=== PATIENT | female | born 1960 | race Caucasian/White ===

== ENCOUNTER 2019-01-31 00:50 | Inpatient (IN) ==
--- OUTSIDE RECORDS SUMMARY | 2019-01-31 00:52 | External Medical Summary | Continuity of Care Document ---
:1960 Author Name Vance Power, Provider Address Unavailable Unavailable , Care Team Providers Name Role Phone Chase [email or web address] PCP, UNKNOWN Unavailable Unavailable Unavailable Unavailable Unavailable Problems Rosacea (695.3) (L71.9) Edema (782.3) (R60.9) Obesity (278.00) (E66.9) Allergies and Adverse Reactions No Known Drug Allergies (Allergy) Medications Potassium Chloride Consuelo ER 10 MEQ Oral T ablet Extended Release; Take one tablet daily when taking daily Lasix HORTENCIA Malcolm Start: 30-Jan-2014 Quantity: 30 Refills: 5 Furosemide 40 MG Oral Tablet; TAKE 1 TABLET DAILY D IRECTED. HORTENCIA Malcolm Start: 30-Jan-2014 Quantity: 30 Refills: 5 Minocycline HCl - 50 MG Oral Capsule; TAKE 1 CAPSULE E VERY 12 HOURS DAILY. HORTENCIA Malcolm Start: 30-Jan-2014 Quantity: 60 Refills: 0 Furosemide 40 MG Oral Tablet; TAKE 1 TABLET EVERY DAY FOR SWELLING Tono Randolph Start: 28-Sep-2012 Quantity: 90 Refills: 0 Procedures Procedures not documented Immunizations Immunizations not documented Social History - Smoking Status Never smoker Plan of Treatment Planned Observations Planned Goals not documented Results No Known Results Results not documented
[2019-01-31] MEDS ORDERED: LORazepam 1 MG TAB PO STA ×2 (01:11→01:22)
[2019-01-31 01:32] LABS: Appearance Urine Clear (Clear); Bilirubin Urine Negative (Negative); Blood Urine Negative (Negative); Color Urine Yellow; Glucose Urine UA Negative (Negative); Ketones Urine Negative (Negative); Leukocyte Esterase Urine Negative (Negative); Nitrite Urine Negative (Negative); Protein Urine Negative (Negative); Urobilinogen Urine Negative (Negative); pH Urine 6.5 (4.5-7.5)
[2019-01-31 01:37] LABS: Basophils # (auto) 0.05 K/uL (0-0.2); Basophils % (auto) 0.9 %; Eosinophils # (auto) 0.13 K/uL (0-0.5); Eosinophils % (auto) 2.5 %; Hematocrit (blood only) 39.7 % (37-47); Hemoglobin 13.9 g/dL (12.0-16.0); Immature Granulocytes # (auto) 0.03 K/uL (0.00-0.02); Immature Granulocytes % (auto) 0.6 %; Lymphocytes # (auto) 1.32 K/uL (1.2-3.4); Mean Corpuscular Volume 91.7 fL (80-100); Mean Platelet Volume 9.8 fL (7.4-10.4); Monocytes # (auto) 0.53 K/uL (0.11-0.59); Monocytes % (auto) 10.1 %; Neutrophils # (auto) 3.21 K/uL (1.4-6.5); Neutrophils % (auto) 60.9 %; Platelet Count 294 K/uL (130-400); RDW Coefficient of Variation 13.8 % (11.5-14.5); RDW Standard Deviation 46.5 fL (36.4-46.3); Red Blood Count 4.33 M/uL (4.2-5.4); White Blood Count 5.27 K/uL (4.8-10.8)
[2019-01-31 02:00] LABS: Alanine Aminotransferase 27 U/L (12-78); Albumin Level 3.6 gm/dl (3.4-5.0); Aspartate Aminotransferase 32 U/L (15-37); BUN Creatinine Ratio 6.7 (10-20); Blood Urea Nitrogen 4 mg/dl (7-18); Calcium 8.4 mg/dl (8.5-10.1); Carbon Dioxide 32 mmol/L (21-32); Chloride 94 mmol/L (98-107); Creatinine Clr Calc Pharmacy 111.6 ml/min; Est GFR (African American) 114.8; Est GFR (Non-African American) 99.1; Glucose 99 mg/dl (70-99); Potassium 2.8 mmol/L (3.5-5.1); Sodium 133 mmol/L (136-145)
[2019-01-31 02:02] LABS: Amphetamines+Metham, Urine Neg (Neg); Barbiturates, Urine Neg (Neg); Benzodiazepine, Urine Neg (Neg); Cocaine, Urine Neg (Neg); MDMA (Ecstacy), Urine Neg (Neg); Methadone, Urine Neg (Neg); Opiate, Urine Neg (Neg); Phencyclidine, Urine Neg (Neg)
[2019-01-31 02:06] LABS: Acetaminophen < 2 ug/ml (10-30); Salicylate < 1.7 mg/dl (2.8-20)
[2019-01-31 02:11] LABS: Albumin Globulin Ratio 0.9 (0.9-2); Alkaline Phosphatase 153 U/L (45-117); Bilirubin,Total 0.3 mg/dl (0.2-1); Creatine Kinase 199 U/L (26-192); Creatine Kinase MB 2.1 ng/ml (0.5-3.6); Globulin 4.2 gm/dl (2.5-4.0); Total Protein 7.8 gm/dl (6.4-8.2); Troponin I < 0.015 ng/ml (0-0.045)
[2019-01-31] MEDS ORDERED: POTASSIUM CHLORIDE 20 MEQ TABCR PO STA (02:13)
--- NOTE | 2019-01-31 03:15 | Emergency Department Note ---
Entered by Alex Marley acting as a scribe for ED Provider Note Name: Alize Randall Age: 59 Arrives Via: Triage Informant: Self CC: Worsening anxiety and depression HPI: 59 female arrives for evaluation of worsening anxiety and depression beginning a few days ago. The patient states it feels like someone is constantly chasing her. She reports her heart has been racing and will not stop for the pa st few weeks. The patient notes she feels like she need to cut herself, and she has cut her right wrists and feet. She states she thought about killing herself and using a knife to do it. The patient reports she takes Prozac and an anxiety pill that she cannot remember when needed. She notes she used to take her medication daily until she was weaned off them. The patient states she now only takes her medication if she feels like she is going on a slip. She reports she has not overdosed on them and she is actually out of her anxiety medication. The patient notes she drinks a few cans a day of [employer] Lemonade daily, and she does not have seizures or shakes when she does not drink them. She states she was never diagnosed with alcoholism, but she does drink the alcohol to take the pain away. The patient reports a history of skin issues and a family history of depression. She notes no one in her family ever killed themselves that she knows of. The patient states she has not been eating much. She reports she was admitted to the hospital a few times for mental health treatment, and the last time she was admitted was in [place] in 2004. The patient denies recent falls, abdominal pain, back pain, recent injury, a history of DM/HTN/HLD, alcohol use, and drug use. ROS: See above HPI for pertinent positives & negatives. A total of 10 systems reviewed and were otherwise negative. Past Medical History: Skin trouble, anxiety, depression Past Surgical History: Family History: Depression Social History: Lives with . Alcohol use. Home Medications: Prozac Allergies NKDA Physical: Vitals: BP 184/127, Pulse 123, Resp 20, Temp 97.7 F, O2 Sat 96 Exam: GENERAL: Patient is sad and anxious appearing and in mild distress. EYES: No scleral icterus, unremarkable pupils. ENT: Mucous membranes moist, no nasal congestion. NECK: No masses appreciated, no meningismus, trachea is midline. RESPIRATORY: No dyspnea. Clear to auscultation and equal bilaterally. No wheeze, no rhonchi. CARDIOVASCULAR: Mildly tachycardic rate and regular rhythm. No murmurs, rubs, gallops appreciated. GASTROINTESTINAL: Abdomen soft, non-tender, no peritonitis. Bowel sounds positive. No masses appreciated. BACK: No midline tenderness, no CVA tenderness EXTREMITIES: Normal motion all extremities, no cyanosis, no edema. NEUROLOGIC: Alert and oriented, no acute motor or sensory deficits, no focal weakness, cranial nerves grossly intact. SKIN: No rash, no jaundice, no diaphoresis. Healing abrasion over the right volar wrist. PSYCHIATRIC: Sad. Depressed. Admits to suicidal ideations without a specific plan. ED Course: Prior Medical Record, Triage/Nursing Notes, Medications, Allergies reviewed by Me Vital Signs: reviewed and remarkable for HTN Labs: Reviewed and remarkable for HypoKalemia Interventions: Potassium 40meq PO Imaging: None EKG: Per My Interpretation: indication - palpitations: NSR 91 bpm without ectopy nor ischemia. No recent for comparison. QTC 479 Consults: [address] [place] [address] Accepts to their facility Reassessments/Times: 0103: The patient was evaluated in room A05. A complete history and physical exam was performed. 0217: The patient is feeling much better. She is agreeable to a mental health evaluation from the psychiatric comp field case manager. Her did go home, but he signed a 302 petition prior to leaving. 0407: The patient was accepted to [address] [place] [address]. Blood pressure: Elevated - [place] to be Situation Disposition: Hospitalization On [address] [place] [address] Differentials: Mood Disorder, Overdose, Infectious, Electrolyte Abnormality, Cardiac, Hepatic, Endocrine, Toxicologic, Neurologic, amongst other pathologies Entertained. Medical Decision Making: Pleasant 59 yr old female with long standing depression worsening recently now with suicidal thoughts. Exam negative, work up with low K otherwise looks OK. Repleted potassium. Is not intoxicated nor under influence and is currently medically clear. Modest HTN though likely situation and shouldn't effect admission to psych facility. Willing for 201 admission to [address] [place] [address]. Impression: Depression Suicidal ideation Jovan Roth MD The scribe's documentation has been prepared under my direction and personally reviewed by me in its entirety. I confirm that the note above accurately reflects all work, treatment, procedures, and medical decision making performed by me. Impression & Plan Depression, Suicidal ideation, Hypokalemia Past Med/Surg History Medical History Depression (Chronic) Pneumonia (Resolved) Sinusitis (Resolved) Anxiety (Chronic) Surgical History Hx of section (Resolved) Family History Other Depression Social History Preferred Language: Uzbek Feels Safe at Home: Yes Smoking Status: Never smoker Tobacco Type: cigarettes Results & Data Vital Signs Vital Signs - 24 hr 01/31/19 00:54 01/31/19 02:23 01/31/19 04:00 Temperature 36.5 C Temperature Source Oral Sepsis Recent Fever Within 48 Hours No Sepsis Action Taken by Nursing No Action Required Pulse Rate 123 H Pulse Rate [Finger] 100 H 99 H Pulse Rhythm Regular Pulse Rhythm [Finger] Regular Pulse Strength Normal Pulse Strength [Finger] Normal Respiratory Rate 20 16 18 Respiratory Effort / Characteristics Non-Labored Spontaneous Non-Labored Spontaneous Non-Labored Respiratory Depth Normal Normal Normal Respiratory Pattern Regular Regular Blood Pressure 184/127 H Blood Pressure [Left Arm] 188/85 H 167/88 H Blood Pressure Mean 146 Blood Pressure Mean [Left Arm] 119 114 Blood Pressure Position Sitting Blood Pressure Position [Left Arm] Lying Pulse Oximetry 96 98 99 Oxygen Delivery Method Room Air Room Air Room Air Home Medications Current Medication List: was personally reviewed by me Laboratory Data Attestation: I reviewed the patient's lab results. Result diagrams: 01/31/19 01:27 01/31/19 01:27 Lab Results 01/31/19 01/31/19 01/31/19 Range/Units 01:00 01:00 01:27 WBC 5.27 (4.8-10.8) K/uL RBC 4.33 (4.2-5.4) M/uL Hgb 13.9 (12.0-16.0) g/dL Hct 39.7 (37-47) % MCV 91.7 (80-100) fL MCH 32.1 (25-34) pg MCHC 35.0 (32-36) g/dL RDW Std Deviation 46.5 H (36.4-46.3) fL RDW Coeff of Fouzia 13.8 (11.5-14.5) % Plt Count 294 (130-400) K/uL MPV 9.8 (7.4-10.4) fL Immature Gran % (Auto) 0.6 % Neut % (Auto) 60.9 % Lymph % (Auto) 25.0 % Child[place] % (Auto) 10.1 % Eos % (Auto) 2.5 % Baso % (Auto) 0.9 % Immature Gran # (Auto) 0.03 H (0.00-0.02) K/uL Neut # (Auto) 3.21 (1.4-6.5) K/uL Lymph # (Auto) 1.32 (1.2-3.4) K/uL Childress # (Auto) 0.53 (0.11-0.59) K/uL Eos # (Auto) 0.13 (0-0.5) K/uL Baso # (Auto) 0.05 (0-0.2) K/uL Sodium (136-145) mmol/L Potassium (3.5-5.1) mmol/L Chloride (98-107) mmol/L Carbon Dioxide (21-32) mmol/L Anion Gap (3-11) BUN (7-18) mg/dl Creatinine (0.6-1.2) mg/dl Est Cr Clr Drug Dosing ml/min Est GFR ( Amer) Est GFR (Non-Af Amer) BUN/Creatinine Ratio (10-20) Glucose (70-99) mg/dl Calcium (8.5-10.1) mg/dl Total Bilirubin (0.2-1) mg/dl AST (15-37) U/L ALT (12-78) U/L Alkaline Phosphatase (45-117) U/L Total Creatine Kinase (26-192) U/L CK-MB (CK-2) (0.5-3.6) ng/ml CK/CKMB % Calc (0-3.0) Troponin I (0-0.045) ng/ml Total Protein (6.4-8.2) gm/dl Albumin (3.4-5.0) gm/dl Globulin (2.5-4.0) gm/dl Albumin/Globulin Ratio (0.9-2) TSH (0.300-4.500) uIu/ml Urine Color Yellow Urine Appearance Clear (Clear) Urine pH 6.5 (4.5-7.5) Ur Specific [place] 1.010 (1.000-1.030) Urine Protein Negative (Negative) Urine Glucose (UA) Negative (Negative) Urine Ketones Negative (Negative) Urine Blood Negative (Negative) Urine Nitrite Negative (Negative) Urine Bilirubin Negative (Negative) Urine Urobilinogen Negative (Negative) Ur Leukocyte Esterase Negative (Negative) Salicylates (2.8-20) mg/dl Urine Opiates Screen Neg (Neg) Ur Methadone, Qual Neg (Neg) Acetaminophen (10-30) ug/ml Urine Barbiturates Neg (Neg) Ur Phencyclidine (PCP) Neg (Neg) U Amphetamin/Meth Scrn Neg (Neg) MDMA (Ecstasy) Screen Neg (Neg) U Benzodiazepines Scrn Neg (Neg) Ur Cocaine Metabolite Neg (Neg) U Marijuana (THC) Screen Neg (Neg) Ethyl Alcohol mg/dL (0-3) mg/dl 01/31/19 01/31/19 01/31/19 Range/Units 01:27 01:27 01:27 WBC (4.8-10.8) K/uL RBC (4.2-5.4) M/uL Hgb (12.0-16.0) g/dL Hct (37-47) % MCV (80-100) fL MCH (25-34) pg MCHC (32-36) g/dL RDW Std Deviation (36.4-46.3) fL RDW Coeff of Fouzia (11.5-14.5) % Plt Count (130-400) K/uL MPV (7.4-10.4) fL Immature Gran % (Auto) % Neut % (Auto) % Lymph % (Auto) % Childress % (Auto) % Eos % (Auto) % Baso % (Auto) % Immature Gran # (Auto) (0.00-0.02) K/uL Neut # (Auto) (1.4-6.5) K/uL Lymph # (Auto) (1.2-3.4) K/uL Child[place] # (Auto) (0.11-0.59) K/uL Eos # (Auto) (0-0.5) K/uL Baso # (Auto) (0-0.2) K/uL Sodium 133 L (136-145) mmol/L Potassium 2.8 L (3.5-5.1) mmol/L Chloride 94 L (98-107) mmol/L Carbon Dioxide 32 (21-32) mmol/L Anion Gap 7.0 (3-11) BUN 4 L (7-18) mg/dl Creatinine 0.64 (0.6-1.2) mg/dl Est Cr Clr Drug Dosing 111.6 ml/min Est GFR ( Amer) 114.8 Est GFR (Non-Af Amer) 99.1 BUN/Creatinine Ratio 6.7 L (10-20) Glucose 99 (70-99) mg/dl Calcium 8.4 L (8.5-10.1) mg/dl Total Bilirubin 0.3 (0.2-1) mg/dl AST 32 (15-37) U/L ALT 27 (12-78) U/L Alkaline Phosphatase 153 H (45-117) U/L Total Creatine Kinase 199 H (26-192) U/L CK-MB (CK-2) 2.1 (0.5-3.6) ng/ml CK/CKMB % Calc 1.1 (0-3.0) Troponin I < 0.015 (0-0.045) ng/ml Total Protein 7.8 (6.4-8.2) gm/dl Albumin 3.6 (3.4-5.0) gm/dl Globulin 4.2 H (2.5-4.0) gm/dl Albumin/Globulin Ratio 0.9 (0.9-2) TSH 2.310 (0.300-4.500) uIu/ml Urine Color Urine Appearance (Clear) Urine pH (4.5-7.5) Ur Specific [place] (1.000-1.030) Urine Protein (Negative) Urine Glucose (UA) (Negative) Urine Ketones (Negative) Urine Blood (Negative) Urine Nitrite (Negative) Urine Bilirubin (Negative) Urine Urobilinogen (Negative) Ur Leukocyte Esterase (Negative) Salicylates < 1.7 L (2.8-20) mg/dl Urine Opiates Screen (Neg) Ur Methadone, Qual (Neg) Acetaminophen < 2 L (10-30) ug/ml Urine Barbiturates (Neg) Ur Phencyclidine (PCP) (Neg) U Amphetamin/Meth Scrn (Neg) MDMA (Ecstasy) Screen (Neg) U Benzodiazepines Scrn (Neg) Ur Cocaine Metabolite (Neg) U Marijuana (THC) Screen (Neg) Ethyl Alcohol mg/dL < 3.0 (0-3) mg/dl Administered Medications Discontinued Medications Lorazepam (Ativan) 1 mg PO NOW STA Stop: 01/31/19 01:12 Last Admin: 01/31/19 01:24 Dose: 1 mg Documented by: [id number] Lorazepam (Ativan) 1 mg PO NOW STA Stop: 01/31/19 01:23 Last Admin: 01/31/19 01:24 Dose: Not Given Documented by: [id number] Potassium Chloride (Klor-Con M20) 40 meq PO NOW STA Stop: 01/31/19 02:14 Last Admin: 01/31/19 02:24 Dose: 40 meq Documented by: [id number] Prescription Drug Monitoring [place] Drug Monitoring Program reviewed and no issues identified Prescription Drug Findings: Pt was given a Xanax 0.5mg prescription from June 2018. Blood Pressure Blood Pressure Findings: Elevated blood pressure Blood Pressure Disposition: further management by hospitalist Discharge Plan Visit Data Chief Complaint: Mental Health Evaluation Stated Complaint: MENTAL HEALTH EVALUATION ED Provider: Jovan Roth Discharge Problem: Depression, Suicidal ideation, Hypokalemia Patient Disposition: Transfer Behavioral Health Fac Forms Stand Alone Forms: My [facility] Prescriptions Prescriptions: No Action fluoxetine [Prozac] 20 mg Capsule 20 mg PO DAILY RF: 0 Referrals Referrals: Cahty Mlacolm [Primary Care Provider] - Discharge Problem: Depression Qualifiers: Depression Type: major depressive disorder Major depression recurrence: recurrent Active/Remission status: currently active Major depression episode severity: severe Psychotic features: without psychotic features Qualified Code(s): F33.2 - Major depressive disorder, recurrent severe without psychotic features The eb's documentation has been prepared under my direction and personally reviewed by me in its entirety. I confirm that the note above accurately reflects all work, treatment, procedures, and medical decision making performed by me.
[2019-01-31] MEDS ORDERED: ALUMINUM/MAGNESIUM SUSP 30 ML UDC PO PRN (04:11)
[2019-01-31] MEDS ORDERED: SODIUM CHLORIDE 0.65% NA SOLN 45 ML (OCEAN) PRN (04:11)
[2019-01-31] MEDS ORDERED: ACETAMINOPHEN 325 MG TAB PO PRN (04:11)
[2019-01-31] MEDS ORDERED: BISMUTH SUBSALICYLATE PER ML OMNICELL CHARGE PO PRN (04:11)
[2019-01-31] MEDS ORDERED: MAGNESIUM HYDROXIDE SUSP 30 ML UDC PO PRN (04:11)
[2019-01-31 04:50] VITALS: O2SAT 96
--- NOTE | 2019-01-31 06:30 | XRay Report ---
XR chest 1V portable CLINICAL HISTORY: Persistent palpitations COMPARISON STUDY: 10/06/2014 FINDINGS: The cardiac and mediastinal contours are normal. There is no evidence of focal pulmonary co nsolidation. There is no evidence of failure. No pleural effusions are visualized.[ IMPRESSION: No active disease in the chest. Electronically signed by: Vadim Granados M.D. 01/31/2019 6:29 AM
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
[2019-01-31] MEDS ORDERED: QUETIAPINE FUMARATE 25 MG TABLET PO SCH (22:00)
[2019-02-01 08:35] LABS: BUN Creatinine Ratio 16.2 (10-20); Calcium 8.4 mg/dl (8.5-10.1); Creatinine Clr Calc Pharmacy 120.2 ml/min; Est GFR (African American) 117.3; Est GFR (Non-African American) 101.2; Potassium 3.4 mmol/L (3.5-5.1)
[2019-02-01] MEDS ORDERED: ESCITALOPRAM OXALATE 10 MG TAB PO SCH (09:00)
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
[2019-02-01] MEDS ORDERED: BENZOCAINE 20% (ORAJEL) 11.9 GM TUBE MT PRN (12:14)
[2019-02-01] MEDS: BACITRACIN OINT 15 GM TUBE EXT SCH ×2 (13:21→21:07)
[2019-02-01] MEDS: QUETIAPINE FUMARATE 100 MG TABLET PO SCH (21:06)
[2019-02-02] MEDS: BACITRACIN OINT 15 GM TUBE EXT SCH ×3 (07:45→20:58)
[2019-02-02] MEDS: ESCITALOPRAM OXALATE 10 MG TAB PO SCH (07:45)
[2019-02-02] MEDS: QUETIAPINE FUMARATE 25 MG TABLET PO PRN (10:16)
--- NOTE | 2019-02-02 13:02 | Psychiatric Progress Note ---
Date of Service February 02, 2019 Impression / Recommendations Impression Pt reports mood is unchaged from admission. She continues to appear flat with episodes of spontaneous tearfulness on the unit. Pt has been refusing visitors with unclear reasoning. She has tolerated medication adjustments, prn quetiapine at 25mg q4h was ordered due to reports of anxiety/agitation. Pt was encouraged to utilize these doses as needed, can determine if further titration of quetiapine would be indicated based off of prn use. She has no outpatient mental health treatment, as she has no insurance. She has been started on escitalopram and quetiapine, and is using hydroxyzine frequently for anxiety. She also has multiple medical issues, including electrolyte disarray on admission with significant hypokalemia, elevated creatinine kinase, hyperlipidemia, and dermatological issues (facial excoriation). She is at imminent risk of harm to herself/suicide, and inpatient treatment is medically indicated at this time. (1) Suicidal ideation: 01/31 - Continue voluntary hospitalization - Q 15 min checks for safety - Attend and participate in groups and therapy, work on safety plan - Family meeting 02/02 - Reports ongoing SI (2) Depression: 01/31 - Depression with psychosis. - Does not want to return to fluoxetine as thinks it caused weight gain. Reviewed med options on the $4/$[address] [facility]: reviewed risks, benefits, and side effects of escitalopram and quetiapine, including weight gain and need to monitor labs. Patient agreed, will start meds once QTc normalizes. EKG ordered. - Once QTc normalizes, can start escitalopram 10 mg daily and quetiapine 50 mg at bedtime, to target mood, anxiety, and psychosis. - Check fasting lipid profile and glucose for baseline on the atypical antipsychotic. - Recommend follow-up with a psychiatrist and therapist. Patient is resistant to this, but will continue to discuss and explore barriers. She does not have insurance, which will limit aftercare options. 02/01 -repeat EKG was normal sinus rhythm with QTC 457. Escitalopram 10 mg daily and quetiapine 50 mg at bedtime started yesterday; will increase escitalopram to 20 mg daily tomorrow and quetiapine to 100 mg at bedtime tonight to target mood, anxiety, and psychotic symptoms. -Fasting labs checked this morning for baseline on an atypical antipsychotic: Glucose 86, triglycerides elevated 187, cholesterol elevated 221, remainder of lipid panel within normal limits. Explore options for mental health care in the community, primary barrier is lack of insurance/finances. Refer for case management services to assist her in obtaining outpatient treatment. 02/02 - PRN doses of quetiapine provided due to reported anxiety, 25mg q4h prn - Continue current medication regimen otherwise - Continue to encourage patient to involve family in aftercare and safety planning - Reports interest in exploring inpatient D&A rehab for her alcohol use, per family encouragement (3) Anxiety: 01/31 -work on behavioral techniques for managing anxiety. Attend and participate in groups. Start medications as above. 02/01 -increase escitalopram as above. -continue hydroxyzine but encourage patient to utilize behavioral techniques prior to medications, she is having daytime sedation from PRN's. 02/02 - prn quetiapine ordered for anxiety/agitation - 25mg q4h prn (4) Hypokalemia: 01/31 -repleted in the ER, encourage good p.o. intake, and recheck BMP tomorrow. 02/01 -continue to encourage good p.o. intake. Potassium today 3.4, and sodium and chloride have normalized. CK was elevated on admission 199, and was rechecked today -decreased to 52. (5) Excoriation of face: 02/01 -patient reports a history of rosacea, with inflamed areas on her lower face which are now excoriated. She had been putting [id number] acne medication on them. Recommend gentle cleanser and antibacterial ointment to prevent infection and promote healing. She should follow-up with her PCP and possibly dermatology. (6) Tooth decay: 02/01 -patient reports a tooth crumbled, and she missed her dentist appointment to have it fixed due to hospitalization. Continue Orajel 20% as needed for tooth pain, and reschedule with dentist. Inventory Assets Strengths: Supportive family, willing for treatment Needs: Ongoing treatment with medications, therapy Risk Factors Assessment Male: No : Yes Do You Have Access To A Gun?: No Health Problems: Yes Mental Health Diagnoses: Yes Substance Use Disorders: Yes Previous Attempt: Yes Previous Attempt; Highly Lethal: No Family History of Suicide: No Previous Psychiatric Hospitalization: Yes Hopelessness: Yes Smoker: No Protective Factors Assessment : Yes Responsible for Young Children: No Employed: No Supportive Family: Yes Interval History Identifying Information BEAR SANDHU is a 59-year-old F who currently lives in [place] with her , has a history of depression and anxiety, and was admitted on 01/31/19 04:11 on a 201 voluntary commitment for anxiety, depression, paranoia and suicidality. Chief Complaint "Oh, I don't know. I'm here." Review of Systems Notes Constitutional: reports fatigue from poor sleep last evening Cardiovascular: denied Respiratory: denied Gastrointestinal: denied Neurological: denied Psychiatric: denies symptoms other than stated above Total of at least 10 systems reviewed, pertinent positives as above and in HPI. Sleep Information Total Hours of Sleep: 5.75 Sleep Comments: admitted at 0458. Meal Information Percent Meal Consumed - Breakfast: 75 Percent Meal Consumed - Lunch: 75 Percent Meal Consumed - Dinner: 50 Subjective Subjective Patient was seen & assessed and interval progress reviewed with Nursing. Staff report the patient refused visitors last evening, seeming to be somewhat paranoid. It was reported the patient had verbalized some ongoing SI with staff yesterday. Pt was seen today to assess progress since admission. Pt states she is "here." She verbalizes that she remains hopeless and continues to have thou ghts that "life goes on without me. It wouldn't matter if I were gone." Pt continues to struggle with feeling her family does not value her presence. She does admit, however, that she is considering their wishes that she would receive inpatient D&A treatment for her alcohol abuse. Pt states she had some anxiety earlier today, for which she received recently ordered prn quetiapine. Pt states she does not feel comfortable having visitors as "we're not allowed curling irons, I don't have anything to cover up my face. I don't want them seeing me like this." Pt continues to report hopelessness, but denies other needs or concerns today. Physical Exam Psychiatric Orientation: alert, oriented x 3 and cooperative Apperance: appropriately dressed and + disheveled; + did not appear stated age Eye Contact: + fair eye contact Motor Behavior: no abnormal motor movements (observed while laying in bed) Speech: normal rate/rhythm/volume of speech Affect: + flat affect, + constricted affect and mood congruent with affect Mood: + depressed mood and + anxious mood "I'm very flat, very blah." Thought Process: goal directed thought process (moreso today) and + perseveration Thought Content: + delusions and + persecution Suicidal Thoughts: + reports suicidal thoughts Homicidal Thoughts: denies homicidal thoughts Hallucinations: no auditory hallucinations and no visual hallucinations Cognition: recent memory grossly intact, attention grossly intact and language grossly intact Estimated Intelligence: consistent with education level Insight: + impaired insight Judgement: + impaired judgement Vital Signs (Past 24 Hours) Last Vital Signs Temp 36.8 C 02/02/19 06:41 Pulse 99 H 02/02/19 06:42 Resp 18 02/02/19 06:41 BP 148/94 H 02/02/19 06:42 Pulse Ox 96 01/31/19 04:49 Results & Data Current Inpatient Medications Current Inpatient Medications: Current Inpatient Medications Acetaminophen (Tylenol) 650 mg PO Q4H PRN PRN Reason: Headache or Minor Fever Stop: 03/02/19 04:10 Al Hydrox/Mg Hydrox/Simethicone (Maalox) 30 ml PO Q4H PRN PRN Reason: GI Upset Stop: 03/02/19 04:10 Bacitracin (Bacitracin) 1 appln EXT BID HONORIO Stop: 03/03/19 12:14 Last Admin: 02/02/19 07:50 Dose: Not Given Documented by: Benzocaine (Orajel 20%) 1 appln MT BID PRN PRN Reason: tooth pain Stop: 03/03/19 12:13 Bismuth Subsalicylate (Kaopectate) 15 ml PO PRN PRN PRN Reason: Loose Stool Stop: 03/02/19 04:10 Escitalopram Oxalate (Lexapro) 20 mg PO QAM HONORIO Stop: 03/04/19 08:59 Last Admin: 02/02/19 07:45 Dose: 20 mg Documented by: Hydroxyzine HCl (Vistaril) 50 mg PO HSZ PRN PRN Reason: Insomnia Stop: 03/02/19 04:10 Last Admin: 02/01/19 21:06 Dose: 50 mg Documented by: Hydroxyzine HCl (Vistaril) 25 mg PO Q4H PRN PRN Reason: Anxiety Stop: 03/02/19 04:10 Last Admin: 02/01/19 09:06 Dose: 25 mg Documented by: Magnesium Hydroxide (Milk Of Magnesia) 30 ml PO DAILY PRN PRN Reason: Constipation Stop: 03/02/19 04:10 Quetiapine Fumarate (Seroquel) 100 mg PO HS HONORIO Stop: 03/03/19 21:59 Last Admin: 02/01/19 21:06 Dose: 100 mg Documented by: Quetiapine Fumarate (Seroquel) 25 mg PO Q4 PRN PRN Reason: Anxiety Stop: 03/04/19 10:09 Last Admin: 02/02/19 10:16 Dose: 25 mg Documented by: Sodium Chloride ([place] Nasal) 1 - 2 sprays NA PRN PRN PRN Reason: Nasal Dryness/Congestion Stop: 03/02/19 04:10 Post Discharge Appointments Primary Care Physician Name Of Family Doctor: Adrianne Mandel Therapist Name of Therapist: Bonifacio CPT Code CPT Code 78503 (1) Depression Active/Remission status: currently active Depression Type: major depressive disorder Major depression episode severity: severe Major depression recurrence: recurrent Psychotic features: with psychotic features Qualified Code(s): F33.3 - Major depressive disorder, recurrent, severe with psychotic symptoms
[2019-02-02] MEDS: QUETIAPINE FUMARATE 100 MG TABLET PO SCH (20:58)
[2019-02-03] MEDS: BACITRACIN OINT 15 GM TUBE EXT SCH ×2 (09:16→21:00)
[2019-02-03] MEDS: ESCITALOPRAM OXALATE 10 MG TAB PO SCH (09:16)
--- NOTE | 2019-02-03 10:00 | Psychiatric Progress Note ---
Date of Service February 03, 2019 Impression / Recommendations Impression Pt reports some mild improvement in mood last evening. Continues to verbalize a distrust toward her family. Reason for this has changed based on who the patient is conversing with. Pt is observed to be occasionally anxious/paranoid on the unit. Reviewed with patient that prn quetiapine was available throughout the day. Pt requests to be reminded of when doses are available; however, staff states that when it is suggested she is sometimes hesitant to take the medication. Will continue prn doses, and schedule 25mg [id number] - given patient's request for reminder of medication availability. Pt was encouraged to really consider a family meeting with her prior to discharge, as she identifies him as her main outpatient support. She continues to verbalized that she feels her family does not care about her, which is increasing her hopelessness. She is at imminent risk of harm to herself/suicide, and decompensation is highly likely if discharged prematurely. (1) Suicidal ideation: 01/31 - Continue voluntary hospitalization - Q 15 min checks for safety - Attend and participate in groups and therapy, work on safety plan - Family meeting 02/02 - Reports ongoing SI (2) Depression: 01/31 - Depression with psychosis. - Does not want to return to fluoxetine as thinks it caused weight gain. Reviewed med options on the $4/$9 list at [facility]: reviewed risks, benefits, and side effects of escitalopram and quetiapine, including weight gain and need to monitor labs. Patient agreed, will start meds once QTc normalizes. EKG ordered. - Once QTc normalizes, can start escitalopram 10 mg daily and quetiapine 50 mg at bedtime, to target mood, anxiety, and psychosis. - Check fasting lipid profile and glucose for baseline on the atypical antipsychotic. - Recommend follow-up with a psychiatrist and therapist. Patient is resistant to this, but will continue to discuss and explore barriers. She does not have insurance, which will limit aftercare options. 02/01 -repeat EKG was normal sinus rhythm with QTC 457. Escitalopram 10 mg daily and quetiapine 50 mg at bedtime started yesterday; will increase escitalopram to 20 mg daily tomorrow and quetiapine to 100 mg at bedtime tonight to target mood, anxiety, and psychotic symptoms. -Fasting labs checked this morning for baseline on an atypical antipsychotic: Glucose 86, triglycerides elevated 187, cholesterol elevated 221, remainder of lipid panel within normal limits. Explore options for mental health care in the community, primary barrier is lack of insurance/finances. Refer for case management services to assist her in obtaining outpatient treatment. 02/02 - PRN doses of quetiapine provided due to reported anxiety, 25mg q4h prn - Continue current medication regimen otherwise - Continue to encourage patient to involve family in aftercare and safety planning - Reports interest in exploring inpatient D&A rehab for her alcohol use, per family encouragement 02/03 - Continue quetiapine 100mg qHS and escitalopram 20mg qAM - Added order for quetiapine 25mg scheduled [id number] - Continue to encourage patient to schedule family meeting with her (3) Anxiety: 01/31 -work on behavioral techniques for managing anxiety. Attend and participate in groups. Start medications as above. 02/01 -increase escitalopram as above. -continue hydroxyzine but encourage patient to utilize behavioral techniques prior to medications, she is having daytime sedation from PRN's. 02/02 - prn quetiapine ordered for anxiety/agitation - 25mg q4h prn 02/03 - Scheduled additional dosing of quetiapine 25mg [id number] (4) Hypokalemia: 01/31 -repleted in the ER, encourage good p.o. intake, and recheck BMP tomorrow. 02/01 -continue to encourage good p.o. intake. Potassium today 3.4, and sodium and chloride have normalized. CK was elevated on admission 199, and was rechecked today -decreased to 52. (5) Excoriation of face: 02/01 -patient reports a history of rosacea, with inflamed areas on her lower face which are now excoriated. She had been putting [id number] acne medication on them. Recommend gentle cleanser and antibacterial ointment to prevent infection and promote healing. She should follow-up with her PCP and po ssibly dermatology. (6) Tooth decay: 02/01 -patient reports a tooth crumbled, and she missed her dentist appointment to have it fixed due to hospitalization. Continue Orajel 20% as needed for tooth pain, and reschedule with dentist. Inventory Assets Strengths: Supportive family, willing for treatment Needs: Ongoing treatment with medications, therapy Risk Factors Assessment Male: No : Yes Do You Have Access To A Gun?: No Health Problems: Yes Mental Health Diagnoses: Yes Substance Use Disorders: Yes Previous Attempt: Yes Previous Attempt; Highly Lethal: No Family History of Suicide: No Previous Psychiatric Hospitalization: Yes Hopelessness: Yes Smoker: No Protective Factors Assessment : Yes Responsible for Young Children: No Employed: No Supportive Family: Yes Interval History Identifying Information BEAR SANDHU is a 59-year-old F who currently lives in [place] with her , has a history of depression and anxiety, and was admitted on 01/31/19 04:11 on a 201 voluntary commitment for anxiety, depression, paranoia and suicidality. Chief Complaint "Yeah, I didn't want anyone to visit last night. My called though, I guess he's coming later today." Review of Systems Notes Constitutional: denied Cardiovascular: denied Respiratory: denied Gastrointestinal: denied Neurological: denied Psychiatric: denies symptoms other than stated above Total of at least 10 systems reviewed, pertinent positives as above and in HPI. Sleep Information Total Hours of Sleep: 6.25 Sleep Comments: admitted at 0458. Meal Information Percent Meal Consumed - Breakfast: 75 Percent Meal Consumed - Lunch: 75 Percent Meal Consumed - Dinner: 100 Subjective Subjective Patient was seen & assessed and interval progress reviewed with Treatment Team. Staff reports the patient has been refusing visitors with varying reasons as to why. At times she demonstrates episodes of severe anxiety on the unit. Pt was seen today to assess progress since admission. Pt states she noticed some mild improvement in her mood last evening. Today she states her mood is "pretty good." She states her is planning to visit this evening, and this provider encouraged patient to consider scheduling a family meeting with him to discuss concerns and safety planning prior to discharge. Pt states she has limited trust toward her family at this time, as "I just felt everyone was talking behind my back, like they were against me." Pt was asked if she had a different level of trust for her and stated - "in a way I guess, I can't run to him with all my anxiety though. I have to be able to do things on my own." Pt was cooperative with further exploring this idea, as it was explained that at times we need to lean on supports in order to manage various burdens we are facing. Reviewed with patient her own words, that she believes her misses her and wants to be there for her. She remained mildly dismissive during the discussion, seems somewhat skeptical about the advice given. Pt admits to ongoing concerns related to returning home with her family. Pt denies other needs or concerns today. Physical Exam Psychiatric Orientation: alert, oriented x 3 and cooperative Apperance: appropriately dressed (in dress shirt and jeans) and + disheveled (hair somewhat unkempt) Eye Contact: good eye contact Motor Behavior: steady gait and station and no abnormal motor movements Speech: normal rate/rhythm/volume of speech Affect: + flat affect Mood: + depressed mood (but reports "last evening my mood was pretty good.") Thought Process: goal directed thought process and clear/coherent thought process Thought Content: reality based without delusions at time of assessment; though patient verbalizes suggestive comments to nursing at times regarding likely delusional thought content Suicidal Thoughts: denies suicidal thoughts (ongoing hopelessness) Homicidal Thoughts: denies homicidal thoughts Hallucinations: no auditory hallucinations and no visual hallucinations Cognition: attention grossly intact and language grossly intact Estimated Intelligence: consistent with education level Insight: + impaired insight Judgement: + impaired judgement Vital Signs (Past 24 Hours) Last Vital Signs Temp 36.6 C 02/03/19 06:59 Pulse 86 02/03/19 07:00 Resp 16 02/03/19 06:59 BP 152/97 H 02/03/19 07:00 Pulse Ox 96 01/31/19 04:49 Results & Data Current Inpatient Medications Current Inpatient Medications: Current Inpatient Medications Acetaminophen (Tylenol) 650 mg PO Q4H PRN PRN Reason: Headache or Minor Fever Stop: 03/02/19 04:10 Al Hydrox/Mg Hydrox/Simethicone (Maalox) 30 ml PO Q4H PRN PRN Reason: GI Upset Stop: 03/02/19 04:10 Bacitracin (Bacitracin) 1 appln EXT BID [facility]ON[facility]IO Stop: 03/03/19 12:14 Last Admin: 02/03/19 09:16 Dose: 1 appln Documented by: Benzocaine (Orajel 20%) 1 appln MT BID PRN PRN Reason: tooth pain Stop: 03/03/19 12:13 Bismuth Subsalicylate (Kaopectate) 15 ml PO PRN PRN PRN Reason: Loose Stool Stop: 03/02/19 04:10 Escitalopram Oxalate (Lexapro) 20 mg PO QAM [facility] Stop: 03/04/19 08:59 Last Admin: 02/03/19 09:16 Dose: 20 mg Documented by: Hydroxyzine HCl (Vistaril) 50 mg PO HSZ PRN PRN Reason: Insomnia Stop: 03/02/19 04:10 Last Admin: 02/01/19 21:06 Dose: 50 mg Documented by: Hydroxyzine HCl (Vistaril) 25 mg PO Q4H PRN PRN Reason: Anxiety Stop: 03/02/19 04:10 Last Admin: 02/01/19 09:06 Dose: 25 mg Documented by: Magnesium Hydroxide (Milk Of Magnesia) 30 ml PO DAILY PRN PRN Reason: Constipation Stop: 03/02/19 04:10 Quetiapine Fumarate (Seroquel) 100 mg PO HS [facility] Stop: 03/03/19 21:59 Last Admin: 02/02/19 20:58 Dose: 100 mg Documented by: Quetiapine Fumarate (Seroquel) 25 mg PO Q4 PRN PRN Reason: Anxiety Stop: 03/04/19 10:09 Last Admin: 02/02/19 10:16 Dose: 25 mg Documented by: Sodium Chloride ([place] Nasal) 1 - 2 sprays NA PRN PRN PRN Reason: Nasal Dryness/Congestion Stop: 03/02/19 04:10 Post Discharge Appointments Primary Care Physician Name Of Family Doctor: Adrianne Mandel Therapist Name of Therapist: Bonifacio CPT Code CPT Code 42100 (1) Depression Active/Remission status: currently active Depression Type: major depressive disorder Major depression episode severity: severe Major depression recurrence: recurrent Psychotic features: with psychotic features Qualified Code(s): F33.3 - Major depressive disorder, recurrent, severe with psychotic symptoms
[2019-02-03] MEDS: QUETIAPINE FUMARATE 25 MG TABLET PO PRN ×3 (11:20→22:03)
[2019-02-03] MEDS: QUETIAPINE FUMARATE 25 MG TABLET PO SCH (12:54)
[2019-02-03] MEDS ORDERED: QUETIAPINE FUMARATE 25 MG TABLET PO SCH (14:00)
[2019-02-03] MEDS: QUETIAPINE FUMARATE 100 MG TABLET PO SCH (21:00)
[2019-02-04] MEDS: QUETIAPINE FUMARATE 25 MG TABLET PO SCH ×2 (09:21→13:21)
[2019-02-04] MEDS: ESCITALOPRAM OXALATE 10 MG TAB PO SCH (09:21)
[2019-02-04] MEDS: BACITRACIN OINT 15 GM TUBE EXT SCH ×2 (09:22→21:09)
[2019-02-04] MEDS ORDERED: DOCUSATE SODIUM 100 MG CAP PO ONE (11:53)
--- NOTE | 2019-02-04 12:04 | Psychiatric Progress Note ---
Date of Service February 04, 2019 Impression / Recommendations Impression Anxiety showing interval improvement on increased seroquel. Notably less paranoid and more hopeful today. She remain at imminent risk of harm to herself/suicide, and decompensation is highly likely if discharged prematurely. (1) Suicidal ideation: 01/31 - Continue voluntary hospitalization - Q 15 min checks for safety - Attend and participate in groups and therapy, work on safety plan - Family meeting 02/02 - Reports ongoing SI 02/04 - denies active SI this AM (2) Depression: 01/31 - Depression with psychosis. - Does not want to return to fluoxetine as thinks it caused weight gain. Reviewed med options on the $4/$9 list at [facility]: reviewed risks, benefits, and side effects of escitalopram and quetiapine, including weight gain and need to monitor labs. Patient agreed, will start meds once QTc normalizes. EKG ordered. - Once QTc normalizes, can start escitalopram 10 mg daily and quetiapine 50 mg at bedtime, to target mood, anxiety, and psychosis. - Check fasting lipid profile and glucose for baseline on the atypical antipsychotic. - Recommend follow-up with a psychiatrist and therapist. Patient is resistant to this, but will continue to discuss and explore barriers. She does not have insurance, which will limit aftercare options. 02/01 -repeat EKG was normal sinus rhythm with QTC 457. Escitalopram 10 mg daily and quetiapine 50 mg at bedtime started yesterday; will increase escitalopram to 20 mg daily tomorrow and quetiapine to 100 mg at bedtime tonight to target mood, anxiety, and psychotic symptoms. -Fasting labs checked this morning for baseline on an atypical antipsychotic: Glucose 86, triglycerides elevated 187, cholesterol elevated 221, remainder of lipid panel within normal limits. Explore options for mental health care in the community, primary barrier is lack of insurance/finances. Refer for case management services to assist her in obtaining outpatient treatment. 02/02 - PRN doses of quetiapine provided due to reported anxiety, 25mg q4h prn - Continue current medication regimen otherwise - Continue to encourage patient to involve family in aftercare and safety planning - Reports interest in exploring inpatient D&A rehab for her alcohol use, per family encouragement 02/03 - Continue quetiapine 100mg qHS and escitalopram 20mg qAM - Added order for quetiapine 25mg scheduled [id number] - Continue to encourage patient to schedule family meeting with her 02/04 - tolerating increased seroquel w/ improving anxiety and reduced paranoia - FM tomorrow (3) Anxiety: 01/31 -work on behavioral techniques for managing anxiety. Attend and participate in groups. Start medications as above. 02/01 -increase escitalopram as above. -continue hydroxyzine but encourage patient to utilize behavioral techniques prior to medications, she is having daytime sedation from PRN's. 02/02 - prn quetiapine ordered for anxiety/agitation - 25mg q4h prn 02/03 - Scheduled additional dosing of quetiapine 25mg [id number] 02/04 - notable improvement today (4) Hypokalemia: 01/31 -repleted in the ER, encourage good p.o. intake, and recheck BMP tomorrow. 02/01 -continue to encourage good p.o. intake. Potassium today 3.4, and sodium and chloride have normalized. CK was elevated on admission 199, and was re checked today -decreased to 52. (5) Excoriation of face: 02/01 -patient reports a history of rosacea, with inflamed areas on her lower face which are now excoriated. She had been putting [id number] acne medication on them. Recommend gentle cleanser and antibacterial ointment to prevent infection and promote healing. She should follow-up with her PCP and possibly dermatology. (6) Tooth decay: 02/01 -patient reports a tooth crumbled, and she missed her dentist appointment to have it fixed due to hospitalization. Continue Orajel 20% as needed for tooth pain, and reschedule with dentist. (7) Constipation: 02/04 - c/o mild constipation. uses ex-lax at home. will start docusate 100mg bid. encouraged good hydration Inventory Assets Strengths: Supportive family, willing for treatment Needs: Ongoing treatment with medications, therapy Risk Factors Assessment Male: No : Yes Do You Have Access To A Gun?: No Health Problems: Yes Mental Health Diagnoses: Yes Substance Use Disorders: Yes Previous Attempt: Yes Previous Attempt; Highly Lethal: No Family History of Suicide: No Previous Psychiatric Hospitalization: Yes Hopelessness: Yes Smoker: No Protective Factors Assessment : Yes Responsible for Young Children: No Employed: No Supportive Family: Yes Interval History Identifying Information BEAR SANDHU is a 59-year-old F who currently lives in [place] with her , has a history of depression and anxiety, and was admitted on 01/31/19 04:11 on a 201 voluntary commitment for anxiety, depression, paranoia and suicidality. Chief Complaint "I am starting to feel just a little more hopeful, like maybe I will be able to get home safely". Review of Systems Notes mild constipation. denies CP Sleep Information Total Hours of Sleep: 6 Sleep Comments: admitted at 0458. Meal Information Percent Meal Consumed - Breakfast: 100 Percent Meal Consumed - Lunch: 60 Percent Meal Consumed - Dinner: 100 Subjective Subjective Patient was seen & assessed and interval progress reviewed with Treatment Team. Patient was admitted with recurrent depression and paranoia. Progress has been slow. Scheduled for family meeting tomorrow. Started on daytime Seroquel in addition to bedtime dose yesterday for anxiety. No acute events overnight. This morning the patient describes subjectively some interval improvement. She tells me that she feels less paranoid. "It is like I am not reacting to every word and every sound." She denies problematic sedation. Denies dizziness. When queried about suicidal ideation today she states "I am not really feeling anything like that right now." Physical Exam Psychiatric Orientation: cooperative; not guarded Apperance: + disheveled Eye Contact: good eye contact Motor Behavior: no abnormal motor movements Speech: normal rate/rhythm/volume of speech Affect: + blunted affect Mood: no anxious mood ("flat") Thought Process: goal directed thought process and thought association intact Thought Content: not paranoid Suicidal Thoughts: denies suicidal thoughts Homicidal Thoughts: denies homicidal thoughts Estimated Intelligence: average estimated intelligence Insight: + impaired insight Judgement: + impaired judgement Vital Signs (Past 24 Hours) Last Vital Signs Temp 36.6 C 02/04/19 06:53 Pulse 88 02/04/19 06:54 Resp 18 02/04/19 06:53 BP 143/97 H 02/04/19 06:54 Pulse Ox 96 01/31/19 04:49 Results & Data Current Inpatient Medications Current Inpatient Medications: Current Inpatient Medications Acetaminophen (Tylenol) 650 mg PO Q4H PRN PRN Reason: Headache or Minor Fever Stop: 03/02/19 04:10 Al Hydrox/Mg Hydrox/Simethicone (Maalox) 30 ml PO Q4H PRN PRN Reason: GI Upset Stop: 03/02/19 04:10 Bacitracin (Bacitracin) 1 appln EXT BID [facility] Stop: 03/03/19 12:14 Last Admin: 02/04/19 09:22 Dose: 1 appln Documented by: Benzocaine (Orajel 20%) 1 appln MT BID PRN PRN Reason: tooth pain Stop: 03/03/19 12:13 Bismuth Subsalicylate (Kaopectate) 15 ml PO PRN PRN PRN Reason: Loose Stool Stop: 03/02/19 04:10 Docusate Sodium (Colace) 100 mg PO NOW ONE Stop: 02/04/19 11:54 Escitalopram Oxalate (Lexapro) 20 mg PO QAM [facility] Stop: 03/04/19 08:59 Last Admin: 02/04/19 09:21 Dose: 20 mg Documented by: Hydroxyzine HCl (Vistaril) 50 mg PO HSZ PRN PRN Reason: Insomnia Stop: 03/02/19 04:10 Last Admin: 02/01/19 21:06 Dose: 50 mg Documented by: Hydroxyzine HCl (Vistaril) 25 mg PO Q4H PRN PRN Reason: Anxiety Stop: 03/02/19 04:10 Last Admin: 02/01/19 09:06 Dose: 25 mg Documented by: Magnesium Hydroxide (Milk Of Magnesia) 30 ml PO DAILY PRN PRN Reason: Constipation Stop: 03/02/19 04:10 Quetiapine Fumarate (Seroquel) 100 mg PO HS [facility] Stop: 03/03/19 21:59 Last Admin: 02/03/19 21:00 Dose: 100 mg Documented by: Quetiapine Fumarate (Seroquel) 25 mg PO Q4 PRN PRN Reason: Anxiety Stop: 03/04/19 10:09 Last Admin: 02/03/19 22:03 Dose: 25 mg Documented by: Quetiapine Fumarate (Seroquel) 25 mg PO BID@0900,1230 [facility] Stop: 03/05/19 12:29 Last Admin: 02/04/19 09:21 Dose: 25 mg Documented by: Sodium Chloride ([place] Nasal) 1 - 2 sprays NA PRN PRN PRN Reason: Nasal Dryness/Congestion Stop: 03/02/19 04:10 Post Discharge Appointments Primary Care Physician Name Of Family Doctor: Adrianne Mandel Primary Care Time of Appointment with PCP: follow up as needed. Provider Appointment Comment: [address] [place] [address] Psychiatrist Name of Psychiatrist: Declined. Therapist Name of Therapist: Declined Dental Laboratory Manager Name of Dental Laboratory Manager: [employer] [facility] Phone Number for Dental Laboratory Manager: [phone] Case Management Appointment Comment: [address], [place] [address] Contact Information Discharge Discharge [address]: [address] [place], [place] [address] [address] CPT Code CPT Code 75946 (1) Depression Active/Remission status: currently active Depression Type: major depressive disorder Major depression episode severity: severe Major depression recurrence: recurrent Psychotic features: with psychotic features Qualified Code(s): F33.3 - Major depressive disorder, recurrent, severe with psychotic sym ptoms
[2019-02-04] MEDS: QUETIAPINE FUMARATE 25 MG TABLET PO PRN (18:33)
[2019-02-04] MEDS: DOCUSATE SODIUM 100 MG CAP PO SCH (21:08)
[2019-02-04] MEDS: QUETIAPINE FUMARATE 100 MG TABLET PO SCH (21:08)
[2019-02-05] MEDS: DOCUSATE SODIUM 100 MG CAP PO SCH ×2 (08:07→21:19)
[2019-02-05] MEDS: ESCITALOPRAM OXALATE 10 MG TAB PO SCH (08:07)
[2019-02-05] MEDS: BACITRACIN OINT 15 GM TUBE EXT SCH ×2 (08:08→21:19)
[2019-02-05] MEDS: QUETIAPINE FUMARATE 25 MG TABLET PO SCH ×2 (08:08→13:03)
--- NOTE | 2019-02-05 12:02 | Psychiatric Progress Note ---
Date of Service February 05, 2019 Impression / Recommendations Impression Again appearing less anxious and paranoid. Patient has expressed some reluctance for psychiatric follow-up post discharge secondary to financial constraints however was willing for outpatient psychiatric follow-up following interview today. (1) Suicidal ideation: 01/31 - Continue voluntary hospitalization - Q 15 min checks for safety - Attend and participate in groups and therapy, work on safety plan - Family meeting 02/02 - Reports ongoing SI 02/04 - denies active SI this AM 02/05 - not active (2) Depression: 01/31 - Depression with psychosis. - Does not want to return to fluoxetine as thinks it caused weight gain. Reviewed med options on the $4/$9 list at [facility]: reviewed risks, benefits, and side effects of escitalopram and quetiapine, including weight gain and need to monitor labs. Patient agreed, will start meds once QTc normalizes. EKG ordered. - Once QTc normalizes, can start escitalopram 10 mg daily and quetiapine 50 mg at bedtime, to target mood, anxiety, and psychosis. - Check fasting lipid profile and glucose for baseline on the atypical antipsychotic. - Recommend follow-up with a psychiatrist and therapist. Patient is resistant to this, but will continue to discuss and explore barriers. She does not have insurance, which will limit aftercare options. 02/01 -repeat EKG was normal sinus rhythm with QTC 457. Escitalopram 10 mg daily and quetiapine 50 mg at bedtime started yesterday; will increase escitalopram to 20 mg daily tomorrow and quetiapine to 100 mg at bedtime tonight to target mood, anxiety, and psychotic symptoms. -Fasting labs checked this morning for baseline on an atypical antipsychotic: Glucose 86, triglycerides elevated 187, cholesterol elevated 221, remainder of lipid panel within normal limits. Explore options for mental health care in the community, primary barrier is lack of insurance/finances. Refer for case management services to assist her in obtaining outpatient treatment. 02/02 - PRN doses of quetiapine provided due to reported anxiety, 25mg q4h prn - Continue current medication regimen otherwise - Continue to encourage patient to involve family in aftercare and safety planning - Reports interest in exploring inpatient D&A rehab for her alcohol use, per family encouragement 02/03 - Continue quetiapine 100mg qHS and escitalopram 20mg qAM - Added order for quetiapine 25mg scheduled [id number] - Continue to encourage patient to schedule family meeting with her 02/04 - tolerating increased seroquel w/ improving anxiety and reduced paranoia - FM tomorrow 02/05 - mood continues to improve - paranoia resolving (not evident this AM) (3) Anxiety: 01/31 -work on behavioral techniques for managing anxiety. Attend and participate in groups. Start medications as above. 02/01 -increase escitalopram as above. -continue hydroxyzine but encourage patient to utilize behavioral techniques prior to medications, she is having daytime sedation from PRN's. 02/02 - prn quetiapine ordered for anxiety/agitation - 25mg q4h prn 02/03 - Scheduled additional dosing of quetiapine 25mg [id number] 02/04 - notable improvement today (4) Hypokalemia: 01/31 -repleted in the ER, encourage good p.o. intake, and recheck BMP tomorrow. 02/01 -continue to encourage good p.o. intake. Potassium today 3.4, and sodium and chloride have normalized. CK was elevated on admission 199, and was rechecked today -decreased to 52. (5) Excoriation of face: 02/01 -patient reports a history of rosacea, with inflamed areas on her lower face which are now excoriated. She had been putting [id number] acne medication on them. Recommend gentle cleanser and antibacterial ointment to prevent infection and promote healing. She should follow-up with her PCP and possibly dermatology. (6) Tooth decay: 02/01 -patient reports a tooth crumbled, and she missed her dentist appointment to have it fixed due to hospitalization. Continue Orajel 20% as needed for tooth pain, and reschedule with dentist. (7) Constipation: 02/04 - c/o mild constipation. uses ex-lax at home. will start docusate 100mg bid. encouraged good hydration Inventory Assets Strengths: Supportive family, willing for treatment Needs: Ongoing treatment with medications, therapy Risk Factors Assessment Male: No : Yes Do You Have Access To A Gun?: No Health Problems: Yes Mental Health Diagnoses: Yes Substance Use Disorders: Yes Previous Attempt: Yes Previous Attempt; Highly Lethal: No Family History of Suicide: No Previous Psychiatric Hospitalization: Yes Hopelessness: Yes Smoker: No Protective Factors Assessment : Yes Responsible for Young Children: No Employed: No Supportive Family: Yes Interval History Identifying Information BEAR SANDHU is a 59-year-old F who currently lives in [place] with her , has a history of depression and anxiety, and was admitted on 01/31/19 04:11 on a 201 voluntary commitment for anxiety, depression, paranoia and suicidality. Chief Complaint "I feel a lot better". Review of Systems Notes Denies dizziness Sleep Information Total Hours of Sleep: 7.75 Sleep Comments: admitted at 0458. Meal Information Percent Meal Consumed - Breakfast: 50 Percent Meal Consumed - Lunch: 95 Percent Meal Consumed - Dinner: 90 Subjective Subjective Patient was seen & assessed and interval progress reviewed with Treatment Team. Per nursing, patient looking better and brighter on the unit. Scheduled for family meeting today with her . Showered. Compliant with medication. On interview she describes improvement in mood. "I was totally out of it. I feel a lot better now." She denies residual paranoia. Acknowledges some mild anxiety but finding the Seroquel very helpful for that and well-tolerated. She denies excessive sedation. Denies suicidal ideation. Physical Exam Psychiatric Orientation: alert and cooperative Apperance: appropriately dressed and appropriately groomed Eye Contact: good eye contact Motor Behavior: no abnormal motor movements; no psychomotor agitation Speech: normal rate/rhythm/volume of speech Calm Pretty good Thought Process: goal directed thought process Thought Content: not paranoid Suicidal Thoughts: denies suicidal thoughts Homicidal Thoughts: denies homicidal thoughts Hallucinations: no auditory hallucinations and no visual hallucinations Insight: + limited insight Judgement: + limited judgement Vital Signs (Past 24 Hours) Last Vital Signs Temp 36.8 C 02/05/19 06:00 Pulse 82 02/05/19 06:31 Resp 18 02/05/19 06:00 BP 141/86 H 02/05/19 06:31 Pulse Ox 96 01/31/19 04:49 Results & Data Current Inpatient Medications Current Inpatient Medications: Current Inpatient Medications Acetaminophen (Tylenol) 650 mg PO Q4H PRN PRN Reason: Headache or Minor Fever Stop: 03/02/19 04:10 Al Hydrox/Mg Hydrox/Simethicone (Maalox) 30 ml PO Q4H PRN PRN Reason: GI Upset Stop: 03/02/19 04:10 Bacitracin (Bacitracin) 1 appln EXT BID HONORIO Stop: 03/03/19 12:14 Last Admin: 02/05/19 08:08 Dose: 1 appln Documented by: Benzocaine (Orajel 20%) 1 appln MT BID PRN PRN Reason: tooth pain Stop: 03/03/19 12:13 Bismuth Subsalicylate (Kaopectate) 15 ml PO PRN PRN PRN Reason: Loose Stool Stop: 03/02/19 04:10 Docusate Sodium (Colace) 100 mg PO BID [facility] Stop: 03/06/19 20:59 Last Admin: 02/05/19 08:07 Dose: 100 mg Documented by: Escitalopram Oxalate (Lexapro) 20 mg PO QAM [facility] Stop: 03/04/19 08:59 Last Admin: 02/05/19 08:07 Dose: 20 mg Documented by: Hydroxyzine HCl (Vistaril) 50 mg PO HSZ PRN PRN Reason: Insomnia Stop: 03/02/19 04:10 Last Admin: 02/01/19 21:06 Dose: 50 mg Documented by: Hydroxyzine HCl (Vistaril) 25 mg PO Q4H PRN PRN Reason: Anxiety Stop: 03/02/19 04:10 Last Admin: 02/01/19 09:06 Dose: 25 mg Documented by: Magnesium Hydroxide (Milk Of Magnesia) 30 ml PO DAILY PRN PRN Reason: Constipation Stop: 03/02/19 04:10 Quetiapine Fumarate (Seroquel) 100 mg PO HS [facility] Stop: 03/03/19 21:59 Last Admin: 02/04/19 21:08 Dose: 100 mg Documented by: Quetiapine Fumarate (Seroquel) 25 mg PO Q4 PRN PRN Reason: Anxiety Stop: 03/04/19 10:09 Last Admin: 02/04/19 18:33 Dose: 25 mg Documented by: Quetiapine Fumarate (Seroquel) 25 mg PO BID@0900,1230 [facility] Stop: 03/05/19 12:29 Last Admin: 02/05/19 08:08 Dose: 25 mg Documented by: Sodium Chloride (Hardeman Nasal) 1 - 2 sprays NA PRN PRN PRN Reason: Nasal Dryness/Congestion Stop: 03/02/19 04:10 Post Discharge Appointments Primary Care Physician Name Of Family Doctor: [facility] Time of Appointment with PCP: follow up as needed. Provider Appointment Comment: [address] [place] [address] Psychiatrist Name of Psychiatrist: Declined. Therapist Name of Therapist: Declined Senior Data Mining Analyst Name of Senior Data Mining Analyst: [employer] Phone Number for Senior Data Mining Analyst: [phone] Case Management Appointment Comment: [address], [place] [address] Contact Information Discharge Discharge [address] [address] [place], [place] [address] [address] CPT Code CPT Code 98261 (1) Depression Active/Remission status: currently active Depression Type: major depressive disorder Major depression episode severity: severe Major depression recurrence: recurrent Psychotic features: with psychotic features Qualified Code(s): F33.3 - Major depressive disorder, recurrent, severe with psychotic symptoms
[2019-02-05] MEDS: QUETIAPINE FUMARATE 100 MG TABLET PO SCH (21:19)
[2019-02-06 06:39] VITALS: BP 136/87; TEMP 97.9
[2019-02-06] MEDS: ESCITALOPRAM OXALATE 10 MG TAB PO SCH (08:34)
[2019-02-06] MEDS: QUETIAPINE FUMARATE 25 MG TABLET PO SCH ×2 (08:35→13:07)
[2019-02-06] MEDS: BACITRACIN OINT 15 GM TUBE EXT SCH (08:35)
[2019-02-06] MEDS: DOCUSATE SODIUM 100 MG CAP PO SCH (08:35)
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
[2019-02-06 10:09] VITALS: PULSE 88
== END 2019-02-06 13:30 | disposition home or self-care (01) | DRG 885 ==
LOC: ED 00:50 → 3S 04:11

== ENCOUNTER 2019-08-02 08:12 | Inpatient (IN) ==
[2019-08-02] MEDS ORDERED: SODIUM CHLORIDE 0.9% 1000ML 1,000 ML IV SCH (08:30)
[2019-08-02 08:40] LABS: Appearance Urine Clear (Clear); Bilirubin Urine Negative (Negative); Blood Urine Negative (Negative); Color Urine Yellow; Glucose Urine UA Negative (Negative); Ketones Urine Trace (Negative); Leukocyte Esterase Urine Negative (Negative); Nitrite Urine Negative (Negative); Protein Urine Negative (Negative); Specific Gravity Urine 1.014 (1.000-1.030); Urobilinogen Urine Negative (Negative)
[2019-08-02 09:00] LABS: Basophils # (auto) 0.02 K/uL (0-0.2); Basophils % (auto) 0.3 %; Eosinophils # (auto) 0.01 K/uL (0-0.5); Eosinophils % (auto) 0.2 %; Hemoglobin 12.9 g/dL (12.0-16.0); Immature Granulocytes # (auto) 0.03 K/uL (0.00-0.02); Immature Granulocytes % (auto) 0.5 %; Lymphocytes # (auto) 0.45 K/uL (1.2-3.4); Lymphocytes % (auto) 7.6 %; Mean Corpuscular Hemoglobin 30.3 pg (25-34); Mean Corpuscular Hgb Conc 33.1 g/dL (32-36); Mean Corpuscular Volume 91.5 fL (80-100); Mean Platelet Volume 9.8 fL (7.4-10.4); Monocytes # (auto) 0.39 K/uL (0.11-0.59); Monocytes % (auto) 6.6 %; Neutrophils # (auto) 5.03 K/uL (1.4-6.5); Neutrophils % (auto) 84.8 %; Platelet Count 151 K/uL (130-400); RDW Coefficient of Variation 17.1 % (11.5-14.5); RDW Standard Deviation 54.2 fL (36.4-46.3); Red Blood Count 4.26 M/uL (4.2-5.4); White Blood Count 5.93 K/uL (4.8-10.8)
[2019-08-02] MEDS ORDERED: MULTI-VITAMIN INFUSION 10 ML, THIAMINE HCL 100 MG, FOLIC ACID 1 MG in SODIUM CHLORIDE 0... IV ONE (09:01)
[2019-08-02] MEDS ORDERED: MAGNESIUM SULFATE / D5W 1 GM/100 ML BAG IV ONE ×2 (09:01→09:31)
[2019-08-02 09:03] LABS: Base Excess ABG -3.6 mEq/L (-9-1.8); HCO3 ABG 21 mmol/L (19-24); Oxygen Saturation ABG 91.4 % (90-95); PCO2 ABG 34 mmHg (35-46); PO2 ABG 64 mm/Hg (80-95)
[2019-08-02 09:04] LABS: Allen Test Pos (Pos)
[2019-08-02 09:13] LABS: Prothrombin Time 10.5 Seconds (9.0-12.0)
[2019-08-02 09:18] LABS: Alanine Aminotransferase 101 U/L (12-78); Albumin Level 3.6 gm/dl (3.4-5.0); Aspartate Aminotransferase 145 U/L (15-37); BUN Creatinine Ratio 8.1 (10-20); Blood Urea Nitrogen 6 mg/dl (7-18); Calcium 8.7 mg/dl (8.5-10.1); Carbon Dioxide 21 mmol/L (21-32); Chloride 90 mmol/L (98-107); Est GFR (African American) 112.5; Est GFR (Non-African American) 97.1; Glucose 153 mg/dl (70-99); Lipase 642 U/L (73-393); Magnesium 1.4 mg/dl (1.8-2.4); Sodium 126 mmol/L (136-145)
[2019-08-02 09:23] LABS: Acetaminophen < 2 ug/ml (10-30); Salicylate < 1.7 mg/dl (2.8-20)
--- NOTE | 2019-08-02 09:31 | Emergency Department Note ---
Entered by Jerry Castellanos acting as a scribe for Muna Guzman DO History of Present Illness General Chief complaint: Overdose (Intentional) Time Seen by Provider: 08/02/19 08:13 Source: patient and EMS History of Present Illness Provider complaint: Overdose Onset (ago): hour(s) (This morning) Location: head Pain Consistency: + other (Episodic) Quality: + other (Medication overdose) Associated symptoms: + confusion and + nausea/vomiting (No vomiting) The patient is a 59 year old female who presents to the Emergency Room via EMS after overdosing on Seroquel this morning. Per the , the patient took about 20 Seroquel and swallowed them using vodka. Police on scene state that there was 4 pills missing from her Seroquel and about 400mL were missing from the handle of vodka. The patient presents to the ED confused and slightly nauseous. The patient has been tachycardic in the 140s and sating in the mid 80s on RA when EMS arrived at her house. EMS note that the patient was agitated and hesitant to come to the ED. Per EMS, the patient also has superficial lacerations on her bilateral wrist and shins. Per the , the patient has a history of depression and anxiety and he notes her depression has gotten worse since their children have grown up and moved out. Home Medications Home Medications Medication Instructions Recorded Confirmed Type escitalopram oxalate 20 mg PO QAM 08/02/19 08/02/19 History quetiapine 25 mg PO BID 08/02/19 08/02/19 History quetiapine 100 mg PO HS 08/02/19 08/02/19 History Allergies Allergy/AdvReac Type Severity Reaction Status Date / Time No Known Allergies Allergy Unverified 01/31/19 01:48 Past Med/Surg History Medical History Anxiety (Chronic) Depression (Chronic) Pneumonia (Resolved) Sinusitis (Resolved) Surgical History Hx of section (Resolved) Family History Other Depression Social History Preferred Language: Mongolian Communication Ability: agitated Teacher Hearing Impaired Required: No Beliefs That Will Affect Care: None Current Living Situation: Spouse Other Information That Helps Us Care for You: No Feels Safe at Home: Yes Safety Concerns: Feels Safe At This Time Smoking Status: Never smoker Tobacco Type: cigarettes ; Do You Dip or Chew Tobacco: No ; Second Hand Exposure: No ; Tobacco Cessation Education Requested b y Patient: No Hx Alcohol Use: Yes Alcohol type: hard liquor Hx Substance Use: No Review of Systems See HPI for pertinent positives & negatives. and A total of 10 systems reviewed and were otherwise negative Physical Exam Vital Signs Vital Signs - 24 hr 08/02/19 08:24 08/02/19 08:29 08/02/19 08:30 Temperature 97.7 F Temperature Source Oral Pulse Rate 137 H Pulse Rate [Apical] Respiratory Rate 20 Blood Pressure 144/86 H Blood Pressure [Left Arm] Blood Pressure Mean 105 Blood Pressure Mean [Left Arm] Pulse Oximetry 93 88 L 95 Oxygen Delivery Method Room Air Room Air Nasal Cannula Oxygen Flow Rate 2 Sepsis Recent Fever Within 48 Hours No Sepsis New/Unexplained Change in Mental Status No Sepsis Action Taken by Nursing No Action Required 08/02/19 09:08 08/02/19 10:20 08/02/19 11:04 Temperature Temperature Source Pulse Rate Pulse Rate [Apical] 118 H 112 H 108 H Respiratory Rate 20 18 14 Blood Pressure Blood Pressure [Left Arm] 119/93 132/75 79/59 L Blood Pressure Mean Blood Pressure Mean [Left Arm] 101 94 65 Pulse Oximetry 92 98 97 Oxygen Delivery Method Nasal Cannula Nasal Cannula Nasal Cannula Oxygen Flow Rate 2 2 2 Sepsis Recent Fever Within 48 Hours Sepsis New/Unexplained Change in Mental Status Sepsis Action Taken by Nursing 08/02/19 11:11 Temperature Temperature Source Pulse Rate Pulse Rate [Apical] 114 H Respiratory Rate 16 Blood Pressure Blood Pressure [Left Arm] 126/74 Blood Pressure Mean Blood Pressure Mean [Left Arm] 91 Pulse Oximetry 96 Oxygen Delivery Method Nasal Cannula Oxygen Flow Rate 2 Sepsis Recent Fever Within 48 Hours Sepsis New/Unexplained Change in Mental Status Sepsis Action Taken by Nursing GENERAL: alert, well appearing, well nourished, no distress, non-toxic, smells of EtOH. EYE EXAM: normal conjunctiva, PERRL and EOM's grossly intact OROPHARYNX: no exudate, no erythema, lips, buccal mucosa, and tongue normal and mucous membranes are dry NECK: supple, no nuchal rigidity, no adenopathy, non-tender LUNGS: Clear to auscultation. Normal chest wall mechanics. No wheezes, rhonchi, or rales. HEART: Tachycardic in the 140s, no murmurs, S1 normal and S2 normal ABDOMEN: abdomen soft, non-tender, normo-active bowel sounds, no masses, no rebound or guarding. BACK: Back is symmetrical on inspection and there is no deformity, no midline tenderness, no CVA tenderness. SKIN: no rashes and no bruising UPPER EXTREMITIES: upper extremities are grossly normal. Superficial lacerations to the bilateral dorsal forearms. Normal pulses. No other evidence of trauma. LOWER EXTREMITIES: No pitting edema. Superficial lacerations to the bilateral shins. Normal pulses. No other evidence of trauma. NEURO EXAM: Normal sensorium, cranial nerves II-XII grossly intact, normal speech, no gross weakness of arms, no gross weakness of legs. Course Course 0820: Past medical records reviewed. The patient was evaluated in room B06, and a complete history and physical examination were performed. 0850: I reevaluated the patient and her heart rate has decreased to 118. 0923: I reassessed the patient and she is resting comfortably. Vital signs continue to improve. 0950: Per the patient's , she has had an alcohol problem for the past 2-3 years and goes through a handle in about 3 days. He also reported that the patient has a bag of Seroquel separate from her bottle so she might have taken more than what was originally thought by police. The is unsure of what other medications she takes. 1015: I spoke to Alize from Poison Control about the patient's case. She agrees with the plan of action that we have taken thus far. She recommends keeping the Magnesium above 2 and to repeat labs in 3-4 hours. She also noted to provide benzodiazepines as needed. 1111: I spoke to Dr. Jonna Juárez - [facility] Hospitalist about the patient's ca se. He is going to accept the patient for further evaluation. 1214: The patient is now combative with staff so I ordered restraints. Patient also appears more confused. 1315: Repeat EKG, QTC improved. Consultations Consultation #1: I spoke to Alize from [facility] Control about the patient's case. She agrees with the plan of action that we have taken thus far. She recommends keeping the Magnesium above 2 and to repeat labs in 3-4 hours. She also noted to provide benzodiazepines as needed. Time: 10:15 Consultation #2: I spoke to Dr. Jonna Juárez - [facility] Hospitalist about the patient's case. He is going to accept the patient for further evaluation. Time: 11:11 Administered Medications Potassium Chloride/Sodium Chloride (Normal Saline W/20 Meq Kcl) 20 meq in 1,000 mls @ 75 mls/hr IV .[id number] HONORIO Stop: 09/01/19 13:14 Last Admin: 08/03/19 07:42 Dose: 75 mls/hr Documented by: [id number] Infusion: 08/03/19 07:42 Dose: 75 mls/hr Documented by: [id number] Infusion: 08/02/19 23:49 Dose: 75 mls/hr Documented by: [id number] Infusion: 08/02/19 18:00 Dose: 0 mls/hr Documented by: [id number] Admin: 08/02/19 14:02 Dose: 75 mls/hr Documented by: [id number] Cosigned by: [id number] Thiamine HCl 100 mg/ Syringe 10 mls @ 2 mls/min IV QAM HONORIO Stop: 09/01/19 13:59 Last Admin: 08/03/19 09:34 Dose: 2 mls/min Documented by: [id number] Admin: 08/02/19 14:03 Dose: 2 mls/min Documented by: [id number] Cosigned by: [id number] Folic Acid 1 mg/ Syringe 10 mls @ 5 mls/min IV QAM HONORIO Stop: 09/01/19 14:14 Last Admin: 08/03/19 09:34 Dose: 5 mls/min Documented by: [id number] Admin: 08/02/19 14:03 Dose: 5 mls/min Documented by: [id number] Cosigned by: [id number] Lorazepam (Ativan) 2 mg in 4 mls @ 4 mls/min IV UD PRN; Protocol PRN Reason: EtOH Withdrawl AWSS Score 8,9 Stop: 09/01/19 18:04 Last Admin: 08/02/19 18:26 Dose: 4 mls/min Documented by: [id number] Cosigned by: [id number] Lorazepam (Ativan) 3 mg in 6 mls @ 4 mls/min IV ONCE PRN; Protocol PRN Reason: EtOH Withdrawl AWSS Score >=10 Stop: 09/01/19 18:04 Last Admin: 08/03/19 13:04 Dose: 4 mls/min Documented by: [id number] Admin: 08/03/19 11:06 Dose: 4 mls/min Documented by: [id number] Admin: 08/03/19 02:15 Dose: 4 mls/min Documented by: [id number] Admin: 08/03/19 00:47 Dose: 4 mls/min Documented by: [id number] Admin: 08/02/19 19:57 Dose: 4 mls/min Documented by: [id number] Valacyclovir HCl (Valtrex) 1,000 mg PO TID [facility] Stop: 08/12/19 13:59 Last Admin: 08/03/19 12:59 Dose: Not Given Documented by: [id number] Admin: 08/03/19 07:40 Dose: Not Given Documented by: [id number] Admin: 08/02/19 20:32 Dose: Not Given Documented by: [id number] Admin: 08/02/19 14:04 Dose: Not Given Documented by: [id number] Discontinued Medications Sodium Chloride (Nss 1000ml) 1,000 mls @ 125 mls/hr IV .Q8H HONORIO Stop: 09/01/19 08:29 Last Infusion: 08/02/19 13:00 Dose: 0 mls/hr Documented by: [id number] Admin: 08/02/19 09:18 Dose: 125 mls/hr Documented by: [id number] Magnesium Sulfate/Dextrose (Magnesium Sulfate / D5w) 1 gm in 100 mls @ 100 mls/hr IV ONE ONE Stop: 08/02/19 10:00 Last Infusion: 08/02/19 11:08 Dose: 0 mls/hr Documented by: [id number] Admin: 08/02/19 10:02 Dose: 100 mls/hr Documented by: [id number] Multivitamins 10 ml/ Thiamine HCl 100 mg/ Folic Acid 1 mg/Sodium Chloride 1,011.2 mls @ 250 mls/hr IV .Q4H3M ONE Stop: 08/02/19 13:03 Last Infusion: 08/02/19 15:01 Dose: 0 mls/hr Documented by: [id number] Cosigned by: [id number] Admin: 08/02/19 10:02 Dose: 250 mls/hr Documented by: [id number] Magnesium Sulfate/Dextrose (Magnesium Sulfate / D5w) 1 gm in 100 mls @ 100 mls/hr IV ONE ONE Stop: 08/02/19 10:30 Last Infusion: 08/02/19 13:00 Dose: 0 mls/hr Documented by: [id number] Infusion: 08/02/19 12:29 Dose: 0 mls/hr Documented by: [id number] Admin: 08/02/19 11:04 Dose: 100 mls/hr Documented by: [id number] Potassium Chloride/Sodium Chloride (Normal Saline W/20 Meq Kcl) 20 meq in 1,000 mls @ 200 mls/hr IV .Q5H HONORIO Stop: 09/01/19 10:14 Last Infusion: 08/02/19 13:00 Dose: 0 mls/hr Documented by: [id number] Admin: 08/02/19 10:24 Dose: 200 mls/hr Documented by: [id number] Lorazepam (Ativan) 0.5 mg in 1 mls @ 1 mls/min IV NOW STA Stop: 08/02/19 12:19 Last Admin: 08/02/19 12:36 Dose: 1 mls/min Documented by: [id number] Potassium Chloride (K Saw / Wtr) 10 meq in 100 mls @ 100 mls/hr IV Q1H HONORIO Stop: 08/02/19 22:29 Last Infusion: 08/02/19 22:48 Dose: 0 mls/hr Documented by: [id number] Admin: 08/02/19 21:46 Dose: 100 mls/hr Documented by: [id number] Infusion: 08/02/19 21:46 Dose: 0 mls/hr Documented by: [id number] Admin: 08/02/19 20:58 Dose: 100 mls/hr Documented by: [id number] Infusion: 08/02/19 20:58 Dose: 0 mls/hr Documented by: [id number] Admin: 08/02/19 19:41 Dose: 100 mls/hr Documented by: [id number] Infusion: 08/02/19 19:41 Dose: 0 mls/hr Documented by: [id number] Admin: 08/02/19 18:39 Dose: 100 mls/hr Documented by: [id number] Cosigned by: [id number] Magnesium Sulfate/Dextrose (Magnesium Sulfate / D5w) 1 gm in 100 mls @ 100 mls/hr IV Q1H HONORIO Stop: 08/03/19 12:29 Last Infusion: 08/03/19 14:15 Dose: 0 mls/hr Documented by: [id number] Admin: 08/03/19 12:45 Dose: 100 mls/hr Documented by: [id number] Infusion: 08/03/19 12:13 Dose: 0 mls/hr Documented by: [id number] Admin: 08/03/19 11:06 Dose: 100 mls/hr Documented by: [id number] Influenza Virus Vaccine Quadrival (Flucelvax Quad Vaccine) 0.5 ml IM .ONCE ONE Stop: 08/02/19 18:01 Last Admin: 08/02/19 19:18 Dose: Not Given Documented by: [id number] Lorazepam (Ativan) Confirm Administered Dose 2 mg .ROUTE .STK-MED ONE Stop: 08/02/19 10:58 Last Increment: 08/02/19 11:01 Dose: 1 mg Documented by: [id number] Potassium Chloride (Klor-Con M20) 40 meq PO NOW STA Stop: 08/02/19 10:03 Last Admin: 08/02/19 10:25 Dose: 40 meq Documented by: [id number] Critical Care Time Critical Care Time: Yes Total Critical Care Time: 72 I have personally spent greater than 72 minutes of critical care time in the direct management of this patient. This includes bedside care, interpretation of diagnostic studies, and testing, discussion with consultants, patient, and family members, and other required patient management activities. This 72 min utes is in excess of all separately billable procedures. Medical Decision Making Differential Diagnosis Differential: Suicide Attempt, Mood Disorder, Poisoning, Medication OD, Narcotic OD, Tylenol OD, Salicylated OD, Prolonged QTc, Metabolic/Electrolyte imbalance, Trauma, Rhabdo, Infectious, infection, hypoglycemia, cardiac sources, intracerebral event, toxicologic, neurologic, as well as others. Medical Records Attestation: I reviewed the patient's medical records. Home Medications Current Medication List: was personally reviewed by me Laboratory Data Attestation: I reviewed the patient's lab results. Result diagrams: 08/03/19 09:24 08/03/19 12:09 Lab Results 08/02/19 08/02/19 08/02/19 Range/Units 08:30 08:30 08:30 WBC (4.8-10.8) K/uL RBC (4.2-5.4) M/uL Hgb (12.0-16.0) g/dL Hct (37-47) % MCV (80-100) fL MCH (25-34) pg MCHC (32-36) g/dL RDW Std Deviation (36.4-46.3) fL RDW Coeff of Fouzia (11.5-14.5) % Plt Count (130-400) K/uL MPV (7.4-10.4) fL Immature Gran % (Auto) % Neut % (Auto) % Lymph % (Auto) % [place] % (Auto) % Eos % (Auto) % Baso % (Auto) % Immature Gran # (Auto) (0.00-0.02) K/uL Neut # (Auto) (1.4-6.5) K/uL Lymph # (Auto) (1.2-3.4) K/uL [place] # (Auto) (0.11-0.59) K/uL Eos # (Auto) (0-0.5) K/uL Baso # (Auto) (0-0.2) K/uL PT (9.0-12.0) Seconds INR (0.9-1.1) ABG pH (7.35-7.45) ABG pCO2 (35-46) mmHg ABG pO2 (80-95) mm/Hg ABG HCO3 (19-24) mmol/L ABG O2 Saturation (90-95) % ABG Base Excess (-9-1.8) mEq/L Kaushal Test (Pos) Barometric Pressure mm/Hg Oxygen Given Sodium (136-145) mmol/L Potassium (3.5-5.1) mmol/L Chloride (98-107) mmol/L Carbon Dioxide (21-32) mmol/L Anion Gap (3-11) BUN (7-18) mg/dl Creatinine (0.6-1.2) mg/dl Est Cr Clr Drug Dosing Est GFR ( Amer) Est GFR (Non-Af Amer) BUN/Creatinine Ratio (10-20) Glucose (70-99) mg/dl Osmolality (280-300) mOsm/kg Calcium (8.5-10.1) mg/dl Magnesium (1.8-2.4) mg/dl Total Bilirubin (0.2-1) mg/dl AST (15-37) U/L ALT (12-78) U/L Alkaline Phosphatase (45-117) U/L Ammonia (11-32) umol/L Troponin I (0-0.045) ng/ml Total Protein (6.4-8.2) gm/dl Albumin (3.4-5.0) gm/dl Globulin (2.5-4.0) gm/dl Albumin/Globulin Ratio (0.9-2) Lipase (73-393) U/L TSH (0.300-4.500) uIu/ml Specimen Hemolysis Urine Color Yellow Urine Appearance Clear (Clear) Urine pH 5.0 (4.5-7.5) Ur Specific [place] 1.014 (1.000-1.030) Urine Protein Negative (Negative) Urine Glucose (UA) Negative (Negative) Urine Ketones Trace H (Negative) Urine Blood Negative (Negative) Urine Nitrite Negative (Negative) Urine Bilirubin Negative (Negative) Urine Urobilinogen Negative (Negative) Ur Leukocyte Esterase Negative (Negative) Urine Osmolality 313 L (500-800) mOsm/kg Salicylates (2.8-20) mg/dl Urine Opiates Screen Neg (Neg) Ur Methadone, Qual Neg (Neg) Acetaminophen (10-30) ug/ml Urine Barbiturates Neg (Neg) Ur Phencyclidine (PCP) Neg (Neg) U Amphetamin/Meth Scrn Neg (Neg) MDMA (Ecstasy) Screen Neg (Neg) U Benzodiazepines Scrn Neg (Neg) Ur Cocaine Metabolite Neg (Neg) U Marijuana (THC) Screen Neg (Neg) Ethyl Alcohol mg/dL (0-3) mg/dl 08/02/19 08/02/19 08/02/19 Range/Units 08:34 08:34 08:34 WBC 5.93 (4.8-10.8) K/uL RBC 4.26 (4.2-5.4) M/uL Hgb 12.9 (12.0-16.0) g/dL Hct 39.0 (37-47) % MCV 91.5 (80-100) fL MCH 30.3 (25-34) pg MCHC 33.1 (32-36) g/dL RDW Std Deviation 54.2 H (36.4-46.3) fL RDW Coeff of Fouzia 17.1 H (11.5-14.5) % Plt Count 151 (130-400) K/uL MPV 9.8 (7.4-10.4) fL Immature Gran % (Auto) 0.5 % Neut % (Auto) 84.8 % Lymph % (Auto) 7.6 % [place] % (Auto) 6.6 % Eos % (Auto) 0.2 % Baso % (Auto) 0.3 % Immature Gran # (Auto) 0.03 H (0.00-0.02) K/uL Neut # (Auto) 5.03 (1.4-6.5) K/uL Lymph # (Auto) 0.45 L (1.2-3.4) K/uL [place] # (Auto) 0.39 (0.11-0.59) K/uL Eos # (Auto) 0.01 (0-0.5) K/uL Baso # (Auto) 0.02 (0-0.2) K/uL PT 10.5 (9.0-12.0) Seconds INR 1.0 (0.9-1.1) ABG pH (7.35-7.45) ABG pCO2 (35-46) mmHg ABG pO2 (80-95) mm/Hg ABG HCO3 (19-24) mmol/L ABG O2 Saturation (90-95) % ABG Base Excess (-9-1.8) mEq/L Kaushal Test (Pos) Barometric Pressure mm/Hg Oxygen Given Sodium 126 L (136-145) mmol/L Potassium 2.5 L* (3.5-5.1) mmol/L Chloride 90 L (98-107) mmol/L Carbon Dioxide 21 (21-32) mmol/L Anion Gap 15.0 H (3-11) BUN 6 L (7-18) mg/dl Creatinine 0.68 (0.6-1.2) mg/dl Est Cr Clr Drug Dosing Not Reportable Est GFR ( Amer) 112.5 Est GFR (Non-Af Amer) 97.1 BUN/Creatinine Ratio 8.1 L (10-20) Glucose 153 H (70-99) mg/dl Osmolality (280-300) mOsm/kg Calcium 8.7 (8.5-10.1) mg/dl Magnesium 1.4 L (1.8-2.4) mg/dl Total Bilirubin 0.9 (0.2-1) mg/dl AST 145 H (15-37) U/L ALT 101 H (12-78) U/L Alkaline Phosphatase 110 (45-117) U/L Ammonia (11-32) umol/L Troponin I < 0.015 (0-0.045) ng/ml Total Protein 7.4 (6.4-8.2) gm/dl Albumin 3.6 (3.4-5.0) gm/dl Globulin 3.8 (2.5-4.0) gm/dl Albumin/Globulin Ratio 0.9 (0.9-2) Lipase 642 H (73-393) U/L TSH 1.820 (0.300-4.500) uIu/ml Specimen Hemolysis Urine Color Urine Appearance (Clear) Urine pH (4.5-7.5) Ur Specific [place] (1.000-1.030) Urine Protein (Negative) Urine Glucose (UA) (Negative) Urine Ketones (Negative) Urine Blood (Negative) Urine Nitrite (Negative) Urine Bilirubin (Negative) Urine Urobilinogen (Negative) Ur Leukocyte Esterase (Negative) Urine Osmolality (500-800) mOsm/kg Salicylates (2.8-20) mg/dl Urine Opiates Screen (Neg) Ur Methadone, Qual (Neg) Acetaminophen (10-30) ug/ml Urine Barbiturates (Neg) Ur Phencyclidine (PCP) (Neg) U Amphetamin/Meth Scrn (Neg) MDMA (Ecstasy) Screen (Neg) U Benzodiazepines Scrn (Neg) Ur Cocaine Metabolite (Neg) U Marijuana (THC) Screen (Neg) Ethyl Alcohol mg/dL (0-3) mg/dl 08/02/19 08/02/19 08/02/19 Range/Units 08:34 08:34 08:48 WBC (4.8-10.8) K/uL RBC (4.2-5.4) M/uL Hgb (12.0-16.0) g/dL Hct (37-47) % MCV (80-100) fL MCH (25-34) pg MCHC (32-36) g/dL RDW Std Deviation (36.4-46.3) fL RDW Coeff of Fouzia (11.5-14.5) % Plt Count (130-400) K/uL MPV (7.4-10.4) fL Immature Gran % (Auto) % Neut % (Auto) % Lymph % (Auto) % [place] % (Auto) % Eos % (Auto) % Baso % (Auto) % Immature Gran # (Auto) (0.00-0.02) K/uL Neut # (Auto) (1.4-6.5) K/uL Lymph # (Auto) (1.2-3.4) K/uL [place] # (Auto) (0.11-0.59) K/uL Eos # (Auto) (0-0.5) K/uL Baso # (Auto) (0-0.2) K/uL PT (9.0-12.0) Seconds INR (0.9-1.1) ABG pH 7.40 (7.35-7.45) ABG pCO2 34 L (35-46) mmHg ABG pO2 64 L (80-95) mm/Hg ABG HCO3 21 (19-24) mmol/L ABG O2 Saturation 91.4 (90-95) % ABG Base Excess -3.6 (-9-1.8) mEq/L Kaushal Test Pos (Pos) Barometric Pressure 739.9 mm/Hg Oxygen Given 2L Sodium (136-145) mmol/L Potassium (3.5-5.1) mmol/L Chloride (98-107) mmol/L Carbon Dioxide (21-32) mmol/L Anion Gap (3-11) BUN (7-18) mg/dl Creatinine (0.6-1.2) mg/dl Est Cr Clr Drug Dosing Est GFR ( Amer) Est GFR (Non-Af Amer) BUN/Creatinine Ratio (10-20) Glucose (70-99) mg/dl Osmolality (280-300) mOsm/kg Calcium (8.5-10.1) mg/dl Magnesium (1.8-2.4) mg/dl Total Bilirubin (0.2-1) mg/dl AST (15-37) U/L ALT (12-78) U/L Alkaline Phosphatase (45-117) U/L Ammonia (11-32) umol/L Troponin I (0-0.045) ng/ml Total Protein (6.4-8.2) gm/dl Albumin (3.4-5.0) gm/dl Globulin (2.5-4.0) gm/dl Albumin/Globulin Ratio (0.9-2) Lipase (73-393) U/L TSH (0.300-4.500) uIu/ml Specimen Hemolysis Urine Color Urine Appearance (Clear) Urine pH (4.5-7.5) Ur Specific [place] (1.000-1.030) Urine Protein (Negative) Urine Glucose (UA) (Negative) Urine Ketones (Negative) Urine Blood (Negative) Urine Nitrite (Negative) Urine Bilirubin (Negative) Urine Urobilinogen (Negative) Ur Leukocyte Esterase (Negative) Urine Osmolality (500-800) mOsm/kg Salicylates < 1.7 L (2.8-20) mg/dl Urine Opiates Screen (Neg) Ur Methadone, Qual (Neg) Acetaminophen < 2 L (10-30) ug/ml Urine Barbiturates (Neg) Ur Phencyclidine (PCP) (Neg) U Amphetamin/Meth Scrn (Neg) MDMA (Ecstasy) Screen (Neg) U Benzodiazepines Scrn (Neg) Ur Cocaine Metabolite (Neg) U Marijuana (THC) Screen (Neg) Ethyl Alcohol mg/dL 79.7 H (0-3) mg/dl 08/02/19 08/02/19 Range/Units 08:51 11:42 WBC (4.8-10.8) K/uL RBC (4.2-5.4) M/uL Hgb (12.0-16.0) g/dL Hct (37-47) % MCV (80-100) fL MCH (25-34) pg MCHC (32-36) g/dL RDW Std Deviation (36.4-46.3) fL RDW Coeff of Fouzia (11.5-14.5) % Plt Count (130-400) K/uL MPV (7.4-10.4) fL Immature Gran % (Auto) % Neut % (Auto) % Lymph % (Auto) % [place] % (Auto) % Eos % (Auto) % Baso % (Auto) % Immature Gran # (Auto) (0.00-0.02) K/uL Neut # (Auto) (1.4-6.5) K/uL Lymph # (Auto) (1.2-3.4) K/uL [place] # (Auto) (0.11-0.59) K/uL Eos # (Auto) (0-0.5) K/uL Baso # (Auto) (0-0.2) K/uL PT (9.0-12.0) Seconds INR (0.9-1.1) ABG pH (7.35-7.45) ABG pCO2 (35-46) mmHg ABG pO2 (80-95) mm/Hg ABG HCO3 (19-24) mmol/L ABG O2 Saturation (90-95) % ABG Base Excess (-9-1.8) mEq/L Kaushal Test (Pos) Barometric Pressure mm/Hg Oxygen Given Sodium (136-145) mmol/L Potassium (3.5-5.1) mmol/L Chloride (98-107) mmol/L Carbon Dioxide (21-32) mmol/L Anion Gap (3-11) BUN (7-18) mg/dl Creatinine (0.6-1.2) mg/dl Est Cr Clr Drug Dosing Est GFR ( Amer) Est GFR (Non-Af Amer) BUN/Creatinine Ratio (10-20) Glucose (70-99) mg/dl Osmolality 285 (280-300) mOsm/kg Calcium (8.5-10.1) mg/dl Magnesium (1.8-2.4) mg/dl Total Bilirubin (0.2-1) mg/dl AST (15-37) U/L ALT (12-78) U/L Alkaline Phosphatase (45-117) U/L Ammonia 23.0 (11-32) umol/L Troponin I (0-0.045) ng/ml Total Protein (6.4-8.2) gm/dl Albumin (3.4-5.0) gm/dl Globulin (2.5-4.0) gm/dl Albumin/Globulin Ratio (0.9-2) Lipase (73-393) U/L TSH (0.300-4.500) uIu/ml Specimen Hemolysis Urine Color Urine Appearance (Clear) Urine pH (4.5-7.5) Ur Specific [place] (1.000-1.030) Urine Protein (Negative) Urine Glucose (UA) (Negative) Urine Ketones (Negative) Urine Blood (Negative) Urine Nitrite (Negative) Urine Bilirubin (Negative) Urine Urobilinogen (Negative) Ur Leukocyte Esterase (Negative) Urine Osmolality (500-800) mOsm/kg Salicylates (2.8-20) mg/dl Urine Opiates Screen (Neg) Ur Methadone, Qual (Neg) Acetaminophen (10-30) ug/ml Urine Barbiturates (Neg) Ur Phencyclidine (PCP) (Neg) U Amphetamin/Meth Scrn (Neg) MDMA (Ecstasy) Screen (Neg) U Benzodiazepines Scrn (Neg) Ur Cocaine Metabolite (Neg) U Marijuana (THC) Screen (Neg) Ethyl Alcohol mg/dL (0-3) mg/dl Imaging Data Radiologist's Impression: Radiology results as stated below per my review and the radiologist's interpretation: XR chest 1V portable HISTORY: overdose COMPARISON: Chest 01/31/2019. FINDINGS: There are low lung volumes with linear bibasilar densities. No pneumothorax. No pleural effusions. The heart is top normal in size. The upper lung zones are clear. No evidence for pulmonary edema. IMPRESSION: Low lung volumes with bibasilar linear densities. This is nonspecific but favors atelectasis. A pneumonia could also have a similar appearance. Electronically signed by: Asif Edwards M.D. 08/02/2019 9:[address] CT DOSE: 1151.75 mGy.cm HISTORY: Altered mental status. TECHNIQUE: Multiaxial CT images of the head were performed without the use of i ntravenous contrast. Automated exposure control was utilized for this study. A dose lowering technique was utilized adhering to the principles of ALARA. Comparison: None. Findings: Motion artifact. The paranasal sinuses and mastoid air cells are clear. The calvarium and skull base are intact. The ventricles and sulci are within normal limits. There is no mass, hematoma, midline shift, or acute infarct. Impression: Motion artifact. No definite acute intracranial abnormality. Electronically signed by: Asif Edwards M.D. 08/02/2019 11:26 AM ECG Data Attestation: I personally reviewed and interpreted this ECG as follows: Indication: + toxicologic Rate (beats per minute): 141 Rhythm: + sinus tachycardia ECG Intervals/blocks: + Prolonged QT ECG Findings: + Other (Nonspecific ST changes) Blood Pressure Blood Pressure Findings: Elevated blood pressure Blood Pressure Disposition: elevated BP felt to be situational MDM Narrative Patient brought in by EMS due to intentional overdose. Originally reported to be alcohol and Seroquel. The then stated that he was unsure when she may have taken this overdose and if any other medication was missing. Patient does have a history of mental illness, prior suicide attempts including overdose, and is on multiple psychiatric medications. Patient does have a prior history of psychosis. Her 's report patient is also an alcoholic. Due to unknown time of ingestion and presentation here almost 2 hours after the original call for EMS went out, patient was not within the window for activated charcoal. Patient found to have multiple electrolyte abnormalities, however alcohol level not significantly elevated. Electrolytes were repleted intravenously, patient did receive IV fluids, as well as IV multivitamin bag. Patient initially found to have a prolonged QTC, likely this is from her electrolyte abnormalities. This did improve on repeat EKG as did her initial tachycardia. Patient ultimately became more combative. CT of the head was unremarkable and patient with a nonfocal neuro exam. I do not suspect acute HAT BLOCKER pathology, I feel this is more likely related to her electrolyte abnormalities or possibly alcohol withdrawal. Patient was given 2 doses of Ativan, however was eventually placed in restraints due to her being aggressive and violent with staff members. Patient does meet criteria for involuntary admission, however will need ongoing medical evaluation and treatment until she can be safely seen by psychiatry. It is unclear if she took any additional ingestion. No evidence of other toxic alcohol ingestion is no significant osmolar gap. Possible some of her altered mental status secondary to her hyponatremia. Patient afebrile and a low suspicion for occult infectious etiology. I do not suspect menin gitis/encephalitis. No other evidence of infectious etiology. Impression & Plan Overdose, Depression, Hypokalemia, Altered mental status, Hyponatremia, Hypomagnesemia, Alcohol abuse Discharge Plan Visit Data *Final* Discharge Date/Time: 08/02/19 12:46 Chief Complaint: Overdose (Intentional) ED Provider: Muna Guzman ED Midlevel Provider: Giana Man Discharge Problem: Overdose, Depression, Hypokalemia, Altered mental status, Hyponatremia, Hypoma gnesemia, Alcohol abuse Patient Disposition: Admitted As Inpatient Discharge Instructions Interventions: ED Discharge Assessment Last Done: 08/02/19 12:46 Discharge Problem: Overdose Qualifiers: Encounter type: initial encounter Injury intent: intentional self-harm Qualified Code(s): T50.902A - Poisoning by unspecified drugs, medicaments and biological substances, intentional self-harm, initial encounter Depression Qualifiers: Depression Type: unspecified Qualified Code(s): F32.9 - Major depressive disorder, single episode, unspecified Altered mental status Qualifiers: Altered mental status type: unspecified Qualified Code(s): R41.82 - Altered mental status, unspecified The scribe's documentation has been prepared under my direction and personally reviewed by me in its entirety. I confirm that the note above accurately reflects all work, treatment, procedures, and medical decision making performed by me.
[2019-08-02 09:32] LABS: Amphetamines+Metham, Urine Neg (Neg); Barbiturates, Urine Neg (Neg); Benzodiazepine, Urine Neg (Neg); Cocaine, Urine Neg (Neg); MDMA (Ecstacy), Urine Neg (Neg); Methadone, Urine Neg (Neg); Opiate, Urine Neg (Neg); Phencyclidine, Urine Neg (Neg)
[2019-08-02 09:38] LABS: Albumin Globulin Ratio 0.9 (0.9-2); Alkaline Phosphatase 110 U/L (45-117); Bilirubin,Total 0.9 mg/dl (0.2-1); Globulin 3.8 gm/dl (2.5-4.0); Potassium 2.5 mmol/L (3.5-5.1); Total Protein 7.4 gm/dl (6.4-8.2); Troponin I < 0.015 ng/ml (0-0.045)
--- NOTE | 2019-08-02 09:47 | XRay Report ---
XR chest 1V portable HISTORY: overdose COMPARISON: Chest 01/31/2019. FINDINGS: There are low lung volumes with linear bibasilar densities. No pneumothorax. No pleural eff usions. The heart is top normal in size. The upper lung zones are clear. No evidence for pulmonary ed [place]. IMPRESSION: Low lung volumes with bibasilar linear densities. This is nonspecific but favors atelectasis. A pneum onia could also have a similar appearance. Electronically signed by: Asif Edwards M.D. 08/02/2019 9:45 AM
[2019-08-02] MEDS ORDERED: POTASSIUM CHLORIDE 20 MEQ TABCR PO STA (10:02)
[2019-08-02] MEDS ORDERED: NSS + 20MEQ KCL 20 MEQ/1,000 ML BAG IV SCH (10:15)
--- NOTE | 2019-08-02 10:23 | Emergency Department Note ---
General (ED) Blank Date of Service August 02, 2019 ED Visit Note I attest that I saw and examined this patient and participated in her care under the direction of Dr. Guzman. Please see her note for clinical assessment and course. Resident Activity Tracking Resident Involvement: Resident Care Provided Care Provided: Adult ED
[2019-08-02] MEDS ORDERED: LORazepam 2 MG/4 ML VIAL ONE (10:57)
--- NOTE | 2019-08-02 11:27 | CT Scan Report ---
HEAD CT NONCONTRAST CT DOSE: 1151.75 mGy.cm HISTORY: Altered mental status. TECHNIQUE: Multiaxial CT images of the head were performed without the use of intravenous contrast. A utomated exposure control was utilized for this study. A dose lowering technique was utilized adheri ng to the principles of ALARA. Comparison: None. Findings: Motion artifact. The paranasal sinuses and mastoid air cells are clear. The calvarium and s kull base are intact. The ventricles and sulci are within normal limits. There is no mass, hematoma, midline shift, or acute infarct. Impression: Motion artifact. No definite acute intracranial abnormality. Electronically signed by: Asif Edwards M.D. 08/02/2019 11:26 AM
[2019-08-02] MEDS ORDERED: ZOLPIDEM TARTRATE 5 MG TAB PO PRN (12:07)
[2019-08-02] MEDS ORDERED: POLYETHYLENE (MIRALAX) 17 GM PACK PO PRN (12:07)
[2019-08-02] MEDS ORDERED: ONDANSETRON INJ 2 MG/ML 2 ML VIAL IV PRN (12:07)
[2019-08-02] MEDS ORDERED: MAGNESIUM HYDROXIDE SUSP 30 ML UDC PO PRN (12:07)
[2019-08-02] MEDS ORDERED: ALUMINUM/MAGNESIUM SUSP 30 ML UDC PO PRN (12:07)
[2019-08-02] MEDS ORDERED: LORazepam 1 MG TAB PO PRN (12:13)
[2019-08-02] MEDS ORDERED: LORazepam 0.5 MG/1 ML VIAL IV STA (12:18)
[2019-08-02 13:56] LABS: BUN Creatinine Ratio 7.9 (10-20); Calcium 8.1 mg/dl (8.5-10.1); Creatinine Clr Calc Pharmacy 122.3 ml/min; Est GFR (African American) 117.3; Est GFR (Non-African American) 101.2; Potassium 2.8 mmol/L (3.5-5.1)
[2019-08-02] MEDS: NSS + 20MEQ KCL 20 MEQ/1,000 ML BAG IV SCH (14:02)
[2019-08-02] MEDS: THIAMINE HCL 100 MG in SYRINGE 9 ML IV SCH (14:03)
[2019-08-02] MEDS: FOLIC ACID 1 MG in SYRINGE 9.8 ML IV SCH (14:03)
[2019-08-02] MEDS: VALACYCLOVIR HCL 500 MG TABLET PO SCH ×2 (14:04→20:32)
--- NOTE | 2019-08-02 15:08 | History & Physical Report ---
Date of Service August 02, 2019 Assessment & Plan (1) Overdose: Intentional overdose with Seroquel/suicidal attempt Suicide precaution, one-to-one Psych consult in a.m. hoping that she would be more awake Follow-up LFTs, QTC, order EKG in a.m. current QTC is 551 Replace all electrolytes Repeat LFTs in a.m. (2) Depression: Has been struggling with depression for a long time as per Defer to psychiatrist any adjustment in her meds (3) Hyponatremia: Obtain urine osmolarity, plasma osmolality, urine sodium Gentle IV fluid hydration with normal saline Check BMP every 6-8 hours Aim for slow correction of sodium level because chronicity of the hyponatremia is unknown (4) Hypomagnesemia: Replace magnesium level (5) Alcohol abuse: Started patient on alcohol withdrawal protocol Ativan as needed withdrawal Thiamine/folic acid/multivitamin replacement (6) Hypokalemia: Replace potassium level aggressively due to QTC prolongation History of Present Illness 59-year-old female with past medical history as of depression, previous suicidal attempt, morbid obesity and alcohol abuse. Patient called her at 7 AM and told him that she attempted suicide by taking Seroquel and drinking half a bottle of vodka. drove home and in his way he called 911 on arrival they counted the amount of Seroquel she took it was only 4 tablets missing but then the family reported that she had another bag of Seroquel that nobody knows where it is. Patient was brought to the emergency room, Based. Labs showed potassium of 2.5, sodium of 126 and magnesium of 1.4 also her lipase was 642 and liver enzymes were mildly elevated. Tylenol level, salicylate levels were negative alcohol level was 79.7, due to her lethargy ED physician ordered a CT scan head that showed no acute intracranial abnormality. Chest x-ray showed low lung volumes with bibasilar tenial linear density likely atelectasis. Primary Care Provider: Cathy Malcolm Allergies Allergy/AdvReac Type Severity Reaction Status Date / Time No Known Allergies Allergy Unverified 01/31/19 01:48 Home Medications Home Medications Medication Instructions Recorded Confirmed Type Anbesol (benzocaine) Max Str 1 applic MUCOUS MEMBRANE BID PRN 02/01/19 02/01/19 History escitalopram oxalate 20 mg PO QAM 08/02/19 08/02/19 History quetiapine 25 mg PO BID 08/02/19 08/02/19 History quetiapine 100 mg PO HS 08/02/19 08/02/19 History Past Med/Surg History Medical History Anxiety (Chronic) Depression (Chronic) Pneumonia (Resolved) Sinusitis (Resolved) Surgical History Hx of section (Resolved) Family History Other Depression Social History Preferred Language: Arabic Communication Ability: agitated Cloth Checker Required: No Beliefs That Will Affect Care: None Current Living Situation: Spouse Other Information That Helps Us Care for You: No Feels Safe at Home: Yes Safety Concerns: Feels Safe At This Time Smoking Status: Never smoker Tobacco Type: cigarettes ; Do You Dip or Chew Tobacco: No ; Second Hand Exposure: No ; Tobacco Cessation Education Requested by Patient: No Hx Alcohol Use: Yes Alcohol type: hard liquor Hx Substance Use: No Review of Systems Review of Systems: Review of systems unobtainable due to her lethargy Physical Exam Physical Exam: Physical examination General morbidly obese appears to be in mild distress HEENT: Atraumatic , normocephalic /no jaundice /no pallor /anicteric /no dry mucous membrane /normal external ear inspection Neck: Supple /no swelling /central trach Heart: S1/S2 tachycardic/no gallop /no rub /no murmur Lungs: Clear to auscultation bilaterally/normal chest with expansion/no rhonchi/no rales/no wheezing/no use of accessory muscles of respiration Abdomen: Soft/nontender/no guarding/no rebound/no organomegaly/no pulsatile mass Musculoskeletal: No swelling/no edema/no tenderness/normal range of motion Neuro exam: Very lethargic but arousable, moves all extremities Psychiatric evaluation: Unable to evaluate skin: No rash on exposed skin area/no erythema Extremity: Normal pulse/no pitting edema/no clubbing or cyanosis Results & Data Vital Signs (Past 12 Hours) Vital Signs Temp Pulse Pulse Resp BP BP BP 08/02/19 15:02 36.5 C 121 H 18 139/77 08/02/19 12:37 124 H 20 133/96 08/02/19 12:25 155 H 30 H 162/71 H 08/02/19 11:11 114 H 16 126/74 08/02/19 11:04 108 H 14 79/59 L 08/02/19 10:20 112 H 18 132/75 08/02/19 09:08 118 H 20 119/93 08/02/19 08:30 08/02/19 08:29 08/02/19 08:24 36.5 C 137 H 20 144/86 H Pulse Ox 08/02/19 15:02 97 08/02/19 12:37 94 08/02/19 12:25 94 08/02/19 11:11 96 08/02/19 11:04 97 08/02/19 10:20 98 08/02/19 09:08 92 08/02/19 08:30 95 08/02/19 08:29 88 L 08/02/19 08:24 93 Code Status & VTE Plan Code Status Full code as per discussion with PG Care Time/CCT Total # of Minutes Spent Total Time Spent with Patient: 35 minutes total time spent is greater than 50% in coordination of care (as documented) at patient's floor/unit and/or counseling patient/family discussion of care with nursing staff (1) Overdose Encounter type: initial encounter Injury intent: intentional self-harm Qualified Code(s): T50.902A - Poisoning by unspecified drugs, medicaments and biological substances, intentional self-harm, initial encounter (2) Depression Depression Type: unspecified Qualified Code(s): F32.9 - Major depressive disorder, single episode, unspecified
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
[2019-08-02] MEDS ORDERED: INFLUENZA ADMINISTRATION CHARGE ONE (18:00)
[2019-08-02] MEDS ORDERED: INFLUENZA VIRUS QUAD VACCINE 0.5 ML SYR IM ONE (18:00)
[2019-08-02] MEDS ORDERED: ATIVAN IV ALCOHOL WITHDRAWL IV PRN (18:05)
[2019-08-02] MEDS ORDERED: LORazepam 1 MG/2 ML VIAL IV PRN (18:05)
[2019-08-02] MEDS: LORazepam 2 MG/4 ML VIAL IV PRN (18:26)
[2019-08-02] MEDS: POTASSIUM CHLORIDE / WTR 10 MEQ/100 ML PLCT IV SCH ×4 (18:39→21:46)
[2019-08-02] MEDS: LORazepam 3 MG/6 ML VIAL IV PRN (19:57)
[2019-08-02 23:07] LABS: BUN Creatinine Ratio 7.6 (10-20); Calcium 7.9 mg/dl (8.5-10.1); Creatinine Clr Calc Pharmacy 146.7 ml/min; Est GFR (African American) 124.5; Est GFR (Non-African American) 107.4; Potassium 4.6 mmol/L (3.5-5.1)
[2019-08-03] MEDS: LORazepam 3 MG/6 ML VIAL IV PRN ×4 (00:47→13:04)
[2019-08-03 01:16] LABS: Calcium 8.2 mg/dl (8.5-10.1); Est GFR (Non-African American) 103.5; Potassium 3.8 mmol/L (3.5-5.1)
[2019-08-03] MEDS: VALACYCLOVIR HCL 500 MG TABLET PO SCH ×3 (07:40→20:44)
[2019-08-03] MEDS: NSS + 20MEQ KCL 20 MEQ/1,000 ML BAG IV SCH ×2 (07:42→18:29)
[2019-08-03] MEDS: FOLIC ACID 1 MG in SYRINGE 9.8 ML IV SCH (09:34)
[2019-08-03] MEDS: THIAMINE HCL 100 MG in SYRINGE 9 ML IV SCH (09:34)
[2019-08-03 09:37] LABS: Hematocrit (blood only) 34.6 % (37-47); Hemoglobin 11.4 g/dL (12.0-16.0); Mean Corpuscular Hemoglobin 30.3 pg (25-34); Mean Corpuscular Hgb Conc 32.9 g/dL (32-36); Mean Platelet Volume 9.4 fL (7.4-10.4); Platelet Count 153 K/uL (130-400); RDW Coefficient of Variation 17.9 % (11.5-14.5); RDW Standard Deviation 57.7 fL (36.4-46.3); Red Blood Count 3.76 M/uL (4.2-5.4); White Blood Count 10.93 K/uL (4.8-10.8)
[2019-08-03 09:55] LABS: Albumin Level 2.8 gm/dl (3.4-5.0); BUN Creatinine Ratio 8.9 (10-20); Calcium 8.2 mg/dl (8.5-10.1); Creatinine Clr Calc Pharmacy 109.7 ml/min; Est GFR (African American) 115.4; Est GFR (Non-African American) 99.6; Magnesium 1.7 mg/dl (1.8-2.4); Potassium 4.2 mmol/L (3.5-5.1)
[2019-08-03 10:00] LABS: Albumin Globulin Ratio 0.8 (0.9-2); Globulin 3.3 gm/dl (2.5-4.0); Total Protein 6.1 gm/dl (6.4-8.2)
[2019-08-03] MEDS: MAGNESIUM SULFATE / D5W 1 GM/100 ML BAG IV SCH ×2 (11:06→12:45)
[2019-08-03 12:42] LABS: BUN Creatinine Ratio 7.3 (10-20); Calcium 8.7 mg/dl (8.5-10.1); Est GFR (African American) 107.7; Potassium 4.1 mmol/L (3.5-5.1)
--- NOTE | 2019-08-03 15:50 | Hospitalist Progress Note ---
Date of Service August 03, 2019 Assessment & Plan (1) Overdose: Intentional overdose with Seroquel/suicidal attempt Suicide precaution, one-to-one not medically stable today as she has tachycardia, confused, lethargic can eat or drink if she wakes up more consistently repeated EKG today, QTc is 471, in sinus tach electrolytes stable except mildly low magnesium hopefully will be stable tomorrow repeat labs (2) Depression: Has been struggling with depression for a long time as per Defer to psychiatrist any adjustment in her meds (3) Hyponatremia: Na is 136 sodium was not that low initially (4) Hypomagnesemia: 1.7 today, will give 2gm IV (5) Alcohol abuse: Started patient on alcohol withdrawal protocol Ativan as needed withdrawal Thiamine/folic acid/multivitamin replacement (6) Hypokalemia: normal at 4.1 back off on replacement Subjective patient lethargic, confused, hallucinating most of the day would wake up for me briefly, thought she was in [place] answers were mumbled, incoherent and would then fall asleep she was not in any distress discussed with psychiatry liason, plan to reassess tomorrow, not medically stable today reviewed labs, Mg low at 2.7, replaced Cr and other electrolytes stable CBC stable repeated EKG today, showed sinus tach and QTc was 471 Review of Systems Review of Systems: Unobtainable due to cognitive status Physical Exam Constitutional: + disheveled, + lethargic, + malnourished and + overweight; no acute distress Eyes: PERRL, conjunctivae normal, anicteric sclerae ENMT: external ear and nose normal, oropharynx normal Nose: + dry nasal mucous membranes Neck: trachea midline, no thyromegaly Respiratory: normal respiratory effort, lungs clear to auscultation Cardiovascular: Rate/Rhythm: regular rhythm and + tachycardic Heart Sounds: normal S1 and normal S2; no murmur Extremities: normal capillary refill; no edema Gastrointestinal (Abdomen): normal bowel sounds, soft, nontender, no hepatosplenomegaly Musculoskeletal: no cyanosis or clubbing, extremities motor strength 5/5 Skin: no rashes, warm and dry (numerous cuts and scratches on arms and legs) Neurologic: patellar DTR's 2+ bilat, sensation intact and PERRL, EOMI, accommodation nl, no face palsy, no dysarthria Psychiatric: Orientation: oriented to person and + guarded; + not oriented to place and + not oriented to time Apperance: + disheveled Eye Contact: + poor eye contact Motor Behavior: + psychomotor retardation Affect: + labile affect Lymphatic: no cervical or axillary lymphadenopathy Results & Data Vital Signs (Past 12 Hours) Vital Signs Temp Pulse Pulse Resp BP BP Pulse Ox 08/03/19 14:51 37 C 104 H 18 123/78 92 08/03/19 12:58 37 C 103 H 20 133/74 93 08/03/19 11:33 37.0 C 141/83 H 08/03/19 10:52 38.4 C H 111 H 24 92 08/03/19 09:27 36.7 C 110 H 20 138/78 90 08/03/19 05:00 37.5 C 107 H 21 112/74 96 Laboratory Results Laboratory Results - last 24 hr 08/02/19 08/02/19 08/03/19 13:09 22:30 00:21 WBC RBC Hgb Hct MCV MCH MCHC RDW Std Deviation RDW Coeff of Fouzia Plt Count MPV Sodium 131 L 132 L Potassium 4.6 D 3.8 D Chloride 99 98 Carbon Dioxide 26 25 Anion Gap 7.0 9.0 BUN 4 L 4 L Creatinine 0.50 L 0.56 L Est Cr Clr Drug Dosing 146.7 131.0 Est GFR ( Amer) 124.5 120.0 Est GFR (Non-Af Amer) 107.4 103.5 BUN/Creatinine Ratio 7.6 L 7.0 L Glucose 83 86 Calcium 7.9 L 8.2 L Magnesium 2.0 Total Bilirubin AST ALT Alkaline Phosphatase Total Protein Albumin Globulin Albumin/Globulin Ratio 08/03/19 08/03/19 08/03/19 09:24 09:24 12:09 WBC 10.93 H RBC 3.76 L Hgb 11.4 L Hct 34.6 L MCV 92.0 MCH 30.3 MCHC 32.9 RDW Std Deviation 57.7 H RDW Coeff of Fouzia 17.9 H Plt Count 153 MPV 9.4 Sodium 135 L 136 Potassium 4.2 4.1 Chloride 103 103 Carbon Dioxide 24 26 Anion Gap 8.0 7.0 BUN 6 L 5 L Creatinine 0.63 0.72 Est Cr Clr Drug Dosing 109.7 96.0 Est GFR ( Amer) 115.4 107.7 Est GFR (Non-Af Amer) 99.6 93.0 BUN/Creatinine Ratio 8.9 L 7.3 L Glucose 82 82 Calcium 8.2 L 8.7 Magnesium 1.7 L Total Bilirubin 1.0 AST 103 H ALT 73 Alkaline Phosphatase 89 Total Protein 6.1 L Albumin 2.8 L Globulin 3.3 Albumin/Globulin Ratio 0.8 L Medications Administered Current Inpatient Medications Al Hydrox/Mg Hydrox/Simethicone (Maalox) 15 ml PO Q4H PRN PRN Reason: Dyspepsia Stop: 09/01/19 12:06 Potassium Chloride/Sodium Chloride (Normal Saline W/20 Meq Kcl) 20 meq in 1,000 mls @ 75 mls/hr IV .[id number] [facility] Stop: 09/01/19 13:14 Last Admin: 08/03/19 07:42 Dose: 75 mls/hr Documented by: Thiamine HCl 100 mg/ Syringe 10 mls @ 2 mls[facility] [place] [facility] [place]: 09/01/19 13:59 Last Admin: 08/03/19 09:34 Dose: 2 mls/min Documented by: Folic Acid 1 mg/ Syringe 10 mls @ 5 mls/[facility] [place] [facility] [place] Stop: 09/01/19 14:14 Last Admin: 08/03/19 09:34 Dose: 5 mls/min Documented by: Lorazepam (Ativan) 1 mg in 2 mls @ 2 mls/min IV UD PRN; Protocol PRN Reason: EtOH Withdrawl AWSS Score 6,7 Stop: 09/01/19 18:04 Lorazepam (Ativan) 2 mg in 4 mls @ 4 mls/min IV UD PRN; Protocol PRN Reason: EtOH Withdrawl AWSS Score 8,9 Stop: 09/01/19 18:04 Last Admin: 08/02/19 18:26 Dose: 4 mls/min Documented by: Lorazepam (Ativan) 3 mg in 6 mls @ 4 mls/min IV ONCE PRN; Protocol PRN Reason: EtOH Withdrawl AWSS Score >=10 Stop: 09/01/19 18:04 Last Admin: 08/03/19 13:04 Dose: 4 mls/min Documented by: Magnesium Hydroxide (Milk Of Magnesia) 30 ml PO Q12H PRN PRN Reason: Constipation Stop: 09/01/19 12:06 Miscellaneous (Ativan Iv Alcohol Withdrawl) 1 ea IV UD PRN; Protocol PRN Reason: EtoH Withdrawal AWSS 6-10+ Stop: 09/01/19 18:04 Ondansetron HCl (Zofran) 4 mg IV Q6H PRN PRN Reason: Nausea Stop: 09/01/19 12:06 Polyethylene Glycol (Miralax Powder Packet) 17 gm PO DAILY PRN PRN Reason: Constipation Stop: 09/01/19 12:06 Valacyclovir HCl (Valtrex) 1,000 mg PO TID [facility] Stop: 08/12/19 13:59 Last Admin: 08/03/19 12:59 Dose: Not Given Documented by: Zolpidem Tartrate (Ambien) 5 mg PO HS PRN PRN Reason: Sleep Stop: 09/01/19 12:06 PG Care Time/CCT Total # of Minutes Spent Total Time Spent with Patient: Total time spent is greater than 50% in coordination of care (as documented) at patient's floor/unit and/or counseling patient: (1) Overdose Encounter type: initial encounter Injury intent: intentional self-harm Qualified Code(s): T50.902A - Poisoning by unspecified drugs, medicaments and biological substances, intentional self-harm, initial encounter (2) Depression Depression Type: unspecified Qualified Code(s): F32.9 - Major depressive disorder, single episode, unspecified
[2019-08-03] MEDS: LORazepam 2 MG/4 ML VIAL IV PRN (23:39)
[2019-08-04] MEDS: NSS + 20MEQ KCL 20 MEQ/1,000 ML BAG IV SCH (08:00)
[2019-08-04] MEDS: FOLIC ACID 1 MG in SYRINGE 9.8 ML IV SCH (08:01)
[2019-08-04] MEDS: THIAMINE HCL 100 MG in SYRINGE 9 ML IV SCH (08:01)
[2019-08-04] MEDS: VALACYCLOVIR HCL 500 MG TABLET PO SCH ×3 (09:10→20:53)
[2019-08-04 09:12] LABS: BUN Creatinine Ratio 10.2 (10-20); Calcium 8.3 mg/dl (8.5-10.1); Creatinine Clr Calc Pharmacy 98.8 ml/min; Est GFR (African American) 111.5; Est GFR (Non-African American) 96.2; Potassium 3.3 mmol/L (3.5-5.1)
--- NOTE | 2019-08-04 15:51 | Hospitalist Progress Note ---
Date of Service August 04, 2019 Assessment & Plan (1) Overdose: Intentional overdose with Seroquel/suicidal attempt Suicide precaution, continue one-to-one not medically stable today as she is hypokalemia, still not completely alert, some left arm swelling advance to regular diet today repeated EKG 08/03, QTc is 471, in sinus tach electrolytes: K is low at 3.3 repeat labs tomorrow (2) Depression: Has been struggling with depression for a long time as per Defer to psychiatrist any adjustment in her meds admits to suicidal thoughts and even plans today admits that she would shoot herself if she had a gun several cuts on her skin are self inflicted (3) Hyponatremia: resolved at 139 (4) Hypomagnesemia: repeat tomorrow (5) Alcohol abuse: Started patient on alcohol withdrawal protocol Ativan as needed withdrawal Thiamine/folic acid/multivitamin replacement no signs of active withdrawal (6) Hypokalemia: low at 3.3 receiving K in fluids, repeat tomorrow AM Subjective patient more alert and better oriented today knows she is here at [facility], knows that she tried to kill herself with Seroquel and vodka knows that she took 14 tablets she admits that the cuts on her skin are self inflicted she just wants to dies, she says that if she had a gun she would shoot herself but she does not have a gun she admits to being too scared to try to cut her own neck, she is not sure where the jugular vein is either she says that her family does not understand her illness her thinks "just take a pill and you will be better" I discussed that she needs to be in inpatient psychiatry, unsure if she will go voluntarily left arm swollen, started last night, not tender, a little warm, there is an IV on that side discussed with RN, will reassess tomorrow labs show K is 3.3, BUN and Cr stable Review of Systems Review of Systems: All systems reviewed & are unremarkable except as noted in HPI & below Psychiatric: + depression, + suicidal ideation and + hallucinations (thought she was at a constitution party last night in her room, saw people) Physical Exam Constitutional: + disheveled, + lethargic, + malnourished and + overweight; no acute distress Eyes: PERRL, conjunctivae normal, anicteric sclerae ENMT: external ear and nose normal, oropharynx normal Nose: + dry nasal mucous membranes Neck: trachea midline, no thyromegaly Respiratory: normal respiratory effort, lungs clear to auscultation Cardiovascular: Rate/Rhythm: regular rhythm and + tachycardic Heart Sounds: normal S1 and normal S2; no murmur Extremities: normal capillary refill; no edema Gastrointestinal (Abdomen): normal bowel sounds, soft, nontender, no hepatosplenomegaly Musculoskeletal: no cyanosis or clubbing, extremities motor strength 5/5 Skin: no rashes, warm and dry (numerous cuts and scratches on arms and legs) Neurologic: patellar DTR's 2+ bilat, sensation intact and PERRL, EOMI, accommodation nl, no face palsy, no dysarthria Psychiatric: Orientation: oriented to person, oriented to place, oriented to time and + guarded Apperance: + disheveled Eye Contact: + poor eye contact Motor Behavior: + psychomotor retardation Affect: + labile affect Lymphatic: no cervical or axillary lymphadenopathy Results & Data Vital Signs (Past 12 Hours) Vital Signs Temp Pulse Resp BP Pulse Ox 08/04/19 15:25 37.1 C 89 18 129/81 94 08/04/19 11:12 37.1 C 91 H 19 122/79 92 08/04/19 07:04 37.0 C 96 H 20 113/82 92 Laboratory Results Laboratory Results - last 24 hr 08/04/19 08/04/19 05:05 08:24 Sodium 139 Potassium 3.3 L D Chloride 107 Carbon Dioxide 25 Anion Gap 7.0 BUN 7 Creatinine 0.70 Est Cr Clr Drug Dosing 98.8 Est GFR ( Amer) 111.5 Est GFR (Non-Af Amer) 96.2 BUN/Creatinine Ratio 10.2 Glucose 123 H Calcium 8.3 L Ur Random Sodium 53 Medications Administered Current Inpatient Medications Al Hydrox/Mg Hydrox/Simethicone (Maalox) 15 ml PO Q4H PRN PRN Reason: Dyspepsia Stop: 09/01/19 12:06 Thiamine HCl 100 mg/ Syringe 10 mls @ 2 mls/min IV QAM HONORIO Stop: 09/01/19 13:59 Last Admin: 08/04/19 08:01 Dose: 2 mls/min Documented by: Folic Acid 1 mg/ Syringe 10 mls @ 5 mls/min IV QAM HONORIO Stop: 09/01/19 14:14 Last Admin: 08/04/19 08:01 Dose: 5 mls/min Documented by: Lorazepam (Ativan) 1 mg in 2 mls @ 2 mls/min IV UD PRN; Protocol PRN Reason: EtOH Withdrawl AWSS Score 6,7 Stop: 09/01/19 18:04 Lorazepam (Ativan) 2 mg in 4 mls @ 4 mls/min IV UD PRN; Protocol PRN Reason: EtOH Withdrawl AWSS Score 8,9 Stop: 09/01/19 18:04 Last Admin: 08/03/19 23:39 Dose: 4 mls/min Documented by: Lorazepam (Ativan) 3 mg in 6 mls @ 4 mls/min IV ONCE PRN; Protocol PRN Reason: EtOH Withdrawl AWSS Score >=10 Stop: 09/01/19 18:04 Last Admin: 08/03/19 13:04 Dose: 4 mls/min Documented by: Magnesium Hydroxide (Milk Of Magnesia) 30 ml PO Q12H PRN PRN Reason: Constipation Stop: 09/01/19 12:06 Miscellaneous (Ativan Iv Alcohol Withdrawl) 1 ea IV UD PRN; Protocol PRN Reason: EtoH Withdrawal AWSS 6-10+ Stop: 09/01/19 18:04 Ondansetron HCl (Zofran) 4 mg IV Q6H PRN PRN Reason: Nausea Stop: 09/01/19 12:06 Polyethylene Glycol (Miralax Powder Packet) 17 gm PO DAILY PRN PRN Reason: Constipation Stop: 09/01/19 12:06 Potassium Chloride (Klor-Con M20) 20 meq PO QAM HONORIO Stop: 09/04/19 08:59 Valacyclovir HCl (Valtrex) 1,000 mg PO TID HONORIO Stop: 08/12/19 13:59 Last Admin: 08/04/19 14:50 Dose: 1,000 mg Documented by: Zolpidem Tartrate (Ambien) 5 mg PO HS PRN PRN Reason: Sleep Stop: 09/01/19 12:06 PG Care Time/CCT Total # of Minutes Spent Total Time Spent with Patient: Total time spent is greater than 50% in coordination of care (as documented) at patient's floor/unit and/or counseling patient: (1) Depression Depression Type: unspecified Qualified Code(s): F32.9 - Major depressive disorder, single episode, unspecified (2) Overdose Encounter type: initial encounter Injury intent: intentional self-harm Qualified Code(s): T50.902A - Poisoning by unspecified drugs, medicaments and biological substances, intentional self-harm, initial encounter
--- NOTE | 2019-08-04 22:12 | Ultrasound Report ---
US venous doppler UE LT CLINICAL HISTORY: L arm swollen, red, warm COMPARISON STUDY: No previous studies for comparison. FINDINGS: No intraluminal thrombus was visualized. The internal jugular, subclavian, axillary, cephal ic, brachial, basilic, radial, and ulnar veins were patent. IMPRESSION: No evidence of left upper extremity DVT. Electronically signed by: Vadim Granados M.D. 08/04/2019 10:10 PM
[2019-08-05] MEDS ORDERED: COUGH DROP (SUGAR FREE) LOZ 24 LOZ/1 BOX BUCCAL ONE (04:55)
[2019-08-05 07:34] LABS: Basophils # (auto) 0.03 K/uL (0-0.2); Basophils % (auto) 0.4 %; Eosinophils # (auto) 0.26 K/uL (0-0.5); Eosinophils % (auto) 3.8 %; Hematocrit (blood only) 32.7 % (37-47); Hemoglobin 10.8 g/dL (12.0-16.0); Immature Granulocytes # (auto) 0.06 K/uL (0.00-0.02); Immature Granulocytes % (auto) 0.9 %; Lymphocytes # (auto) 0.83 K/uL (1.2-3.4); Lymphocytes % (auto) 12.3 %; Mean Corpuscular Hemoglobin 31.1 pg (25-34); Mean Corpuscular Volume 94.2 fL (80-100); Mean Platelet Volume 9.5 fL (7.4-10.4); Monocytes # (auto) 0.48 K/uL (0.11-0.59); Monocytes % (auto) 7.1 %; Neutrophils # (auto) 5.11 K/uL (1.4-6.5); Neutrophils % (auto) 75.5 %; Platelet Count 168 K/uL (130-400); RDW Standard Deviation 59.7 fL (36.4-46.3); Red Blood Count 3.47 M/uL (4.2-5.4); White Blood Count 6.77 K/uL (4.8-10.8)
[2019-08-05] MEDS: VALACYCLOVIR HCL 500 MG TABLET PO SCH ×2 (08:02→13:18)
[2019-08-05] MEDS: FOLIC ACID 1 MG in SYRINGE 9.8 ML IV SCH (08:02)
[2019-08-05 08:03] LABS: BUN Creatinine Ratio 7.3 (10-20); Calcium 8.3 mg/dl (8.5-10.1); Creatinine Clr Calc Pharmacy 131.9 ml/min; Est GFR (African American) 122.2; Est GFR (Non-African American) 105.4; Magnesium 1.7 mg/dl (1.8-2.4); Potassium 3.4 mmol/L (3.5-5.1)
[2019-08-05] MEDS: THIAMINE HCL 100 MG in SYRINGE 9 ML IV SCH (08:03)
[2019-08-05] MEDS ORDERED: POTASSIUM CHLORIDE 20 MEQ TABCR PO SCH (09:00)
[2019-08-05] MEDS: MAGNESIUM SULFATE / D5W 1 GM/100 ML BAG IV SCH ×2 (13:18→14:08)
--- NOTE | 2019-08-05 14:47 | Discharge Summary ---
Date of Service August 05, 2019 Admission HPI Per Admitting Provider Alize Randall is a 59-year-old female admitted medically on 08/02/19 after reportedly calling her to inform him that she had attempted suicide. Pt had reportedly verbalized taking Seroquel in combination with alcohol. Pt's called EMS, who brought her to the ED. Pt was reportedly altered, uncooperative, and agitated upon arrival to the medical floor. She was placed in 4-point restraints in order to prevent harm to self and others as a result of agitated behaviors. Pt reportedly remained delusional. Psychiatric consultation was requested to evaluate patient s/p reported suicide attempt. As patient is not in the condition to provide reliable information, or participate in productive interview, she was not awoken from the restless sleep she appeared to be in. History included in this document is a largely from a psychiatric H&P completed during an inpatient admission to the [facility] in 01/2019. She was admitted at that time after taking a razor to multiple body parts in a suicide attempt. She was demonstrating depression, anxiety, and psychosis at that time. Pt was diagnosed with major depressive disorder, severe, with psychosis. She is reportedly still taking escitalopram 20mg and is prescribed quetiapine 25mg BID with 100mg qHS. Principal Diagnosis Intentional Seroquel overdose Discharge Exam Constitutional + disheveled, + lethargic, + malnourished and + overweight; no acute distress Eyes PERRL, conjunctivae normal, anicteric sclerae ENMT external ear and nose normal, oropharynx normal Nose: + dry nasal mucous membranes Neck trachea midline, no thyromegaly Respiratory normal respiratory effort, lungs clear to auscultation Cardiovascular Rate/Rhythm: regular rhythm and + tachycardic Heart Sounds: normal S1 and normal S2; no murmur Extremities: normal capillary refill; no edema Gastrointestinal (Abdomen) normal bowel sounds, soft, nontender, no hepatosplenomegaly Musculoskeletal no cyanosis or clubbing, extremities motor strength 5/5 Skin no rashes, warm and dry (numerous cuts and scratches on arms and legs) Neurologic patellar DTR's 2+ bilat, sensation intact and PERRL, EOMI, accommodation nl, no face palsy, no dysarthria Psychiatric Orientation: oriented to person, oriented to place, oriented to time and + guarded Apperance: + disheveled Eye Contact: + poor eye contact Motor Behavior: + psychomotor retardation Affect: + labile affect Lymphatic no cervical or axillary lymphadenopathy Discharge Data Allergies Allergy/AdvReac Type Severity Reaction Status Date / Time No Known Allergies Allergy Unverified 01/31/19 01:48 Consultations 08/02/19 12:14 ED Decision to Admit Stat 08/03/19 12:00 Consult Psychiatry Routine Ordered Studies 08/02/19 09:38 CT head/brain wo con Stat 08/04/19 21:30 US venous doppler UE LT Stat Hospital Course (1) Overdose: Intentional overdose with Seroquel/suicidal attempt Suicide precaution, continue one-to-one tolerated regular diet alert and oriented x 3 today, no distress she admits to suicide attempt, admits to thoughts of suicide has cut herself numerous times still high risk for suicide, agrees to go into mental health treatment repeated EKG 08/03, QTc is 471, no further prolongation K slightly low, replaced PO Mag 1.7, replaced with 2gm IV renal function normal (2) Depression: Has been struggling with depression for a long time as per Defer to psychiatrist any adjustment in her meds admits to suicidal thoughts and even plans admits that she would shoot herself if she had a gun several cuts on her skin are self inflicted will go to voluntary inpatient mental health today (3) Hyponatremia: resolved with some gentle IV fluids likely due to dehydration (4) Hypomagnesemia: 1.7, replaced with 2gm IV (5) Alcohol abuse: Started patient on alcohol withdrawal protocol Ativan as needed withdrawal Thiamine/folic acid/multivitamin replacement no signs of active withdrawal will transfer to mental health (6) Hypokalemia: 20mEq PO given today minimally low, safe to go to mental health Total Time Total Time Spent Total Time Spent (In Minutes): 32 minutes Total Time Includes: Examination of the Patient, Discharge Planning, Medication Reconciliation and Communication With Other Providers (psychiatry) Discharge Plan Discharge Items Patient Disposition: Transfer Behavioral Health Fac Reason For Visit: DRUG OVERDOSE Discharge Diagnosis: Intentional overdose with Seroquel, alcohol Hypokalemia Hypomagnesemia Condition on Discharge: Good Goals: go to inpatient behavioral health Activity: Resume your previous activity Non-emergency contact: Psychiatrist Call non-emergency contact if: you have any medication questions and your symptoms worsen Follow-up/Referrals: Cathy Malcolm [Primary Care Provider] - Diet: Regular Addtl Attending Provider Instructions: Medications: per psychiatry Medically stable at this time Pending Studies at Discharge: No Stand-Alone Forms: My [facility] [employer] Suicide Prevention Resources Skilled Items DNR: No Lines: None Urinary Catheter: No Medications and DC Order Prescriptions: Continued quetiapine 25 mg tablet 25 mg PO BID RF: 0 quetiapine 100 mg tablet 100 mg PO HS RF: 0 escitalopram oxalate 20 mg tablet 20 mg PO QAM RF: 0 Discharge Orders: Discharge Order (Routine); Ordered 08/05/19 Ordered By: Gio France Admission Data Admit Date/Time: 08/02/19 12:07 Attending Provider: Gio France Admit Provider: Nabeel Persaud Primary Care Provider: Cathy Malcolm Other Providers: Nabeel Persaud ; Bette Pierce Other Interventions: Discharge Summary Assessment (RN) Last Done: 08/05/19 15:18 DC Date/Time DO NOT enter until pt leaves facility: 08/05/19 15:58
== END 2019-08-05 15:58 | DRG 918 ==
LOC: ED 08:12 → SUATTDRO 12:07 → 2S 12:07

== ENCOUNTER 2019-08-05 15:06 | Inpatient (IN) ==
[2019-08-05] MEDS ORDERED: BISMUTH SUBSALICYLATE PER ML OMNICELL CHARGE PO PRN (16:28)
[2019-08-05] MEDS ORDERED: SODIUM CHLORIDE 0.65% NA SOLN 45 ML (OCEAN) PRN (16:28)
[2019-08-05] MEDS ORDERED: ALUMINUM/MAGNESIUM SUSP 30 ML UDC PO PRN (16:28)
[2019-08-05] MEDS ORDERED: MAGNESIUM HYDROXIDE SUSP 30 ML UDC PO PRN (16:28)
[2019-08-05] MEDS ORDERED: LORazepam 1 MG TAB PO PRN (16:33)
[2019-08-05] MEDS ORDERED: GABAPENTIN 1200MG ALCOHOL WITHDRAWAL LOAD PO STA (16:33)
[2019-08-05] MEDS ORDERED: GABAPENTIN 600 MG TAB PO ONE (16:45)
[2019-08-05] MEDS ORDERED: LORazepam 1 MG TAB PO STA (20:57)
[2019-08-05] MEDS: GABAPENTIN 600 MG TAB PO SCH (21:17)
[2019-08-06] MEDS: GABAPENTIN 600 MG TAB PO SCH ×3 (06:52→21:11)
[2019-08-06] MEDS: FLUOXETINE HCL 10 MG CAP PO SCH (11:23)
[2019-08-06] MEDS: ARIPiprazole 5 MG TAB PO SCH (11:23)
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
[2019-08-06] MEDS: ACETAMINOPHEN 325 MG TAB PO PRN (19:01)
[2019-08-07] MEDS: GABAPENTIN 600 MG TAB PO SCH ×2 (06:13→17:26)
[2019-08-07 07:41] LABS: Glucose Fasting 95 mg/dl (70-99)
[2019-08-07 07:48] LABS: Chol HDL Ratio 3; Cholesterol 153 mg/dl (0-200); HDL Cholesterol 62 mg/dl; LDL Cholesterol Calculated 73 mg/dl; Triglycerides 89 mg/dl (0-150); VLDL Cholesterol 18 mg/dl
[2019-08-07 08:01] LABS: Folate (Folic Acid) 11.25 ng/ml (>5.38)
[2019-08-07] MEDS: FLUOXETINE HCL 10 MG CAP PO SCH (08:04)
[2019-08-07] MEDS: ARIPiprazole 5 MG TAB PO SCH (08:04)
--- NOTE | 2019-08-07 13:34 | Psychiatric Progress Note ---
Date of Service August 07, 2019 Impression / Recommendations Impression 59 yr with AUD and MDD recurrent severe with psychotic features failing lexapro and seroquel with reproted complaince of med but only seeeing PCP with PCP referring to psych so pt switching PCP. intential OD of serouqle in sucide attempt, pt drinks each evening likely more then reprots (states 1 fifth per 5 days) alcohol usage likely adds to the psychotic features and anxiety and depressive symptoms. finanical and lack of health isnurance adds to referral complaince concerns. pt wanting help with anxiety/depression and psychotic features. removed all alcohol from house. (1) Depression: q15 minute safety checks admit to 3S stop lexparo and retrial of prozac given rpt view of tolerance and notable alleivation from it stopped seroquel added abilify, will be affordable with good rx encouraging aftercare with therapy and psychiatric med management appts reality testing and supportive and individual and group and miluei therapy family meeting with 08/07 - Will titrate fluoxetine to 20mg tomorrow morning - Continue aripiprazole 5mg, titrating as tolerated - Continue to encourage participation in group and recreational programming - Encourage family meeting with (2) Alcohol abuse: addressing pt's drinking and attempting to engage and improve insight and motivation to address her drinking, psychoeducation abut how alcohol aggravates her anxiety/depression/pschotic features. aiming for further interventions for her AUD as pt can tolerate Inventory Assets Strengths: willingness to take medication, insight into paranoid thinking Needs: abstaining from alcohol, outpt providers, change of medication, Risk Factors Assessment Male: No : Yes Health Problems: No Mental Health Diagnoses: Yes Substance Use Disorders: Yes Previous Attempt: Yes Previous Psychiatric Hospitalization: Yes Hopelessness: Yes Interval History Identifying Information BEAR SANDHU is a 59-year-old F who currently lives in [place] with , has a history of major depression with psychotic features and AUD, and was admitted on 08/05/19 16:00 on a 201 voluntary commitment for her depression and psychotic features followings a slide attempt by intentional OD of Seroquel with alcohol also being consumed. She was admitted following discharge from the medical unit with the admission tied to AMS from her overdose. She was originally brought to the hospital by first responders after called 911 after she disclosed to him about her suicide attempt. Chief Complaint "The medications aren't really helping, I'm no different." Review of Systems Notes Constitutional: reports feeling fatigued today Cardiovascular: denied Respiratory: denied Gastrointestinal: denied Neurological: denied Psychiatric: denies symptoms other than stated above Total of at least 10 systems reviewed, pertinent positives as above and in HPI. Sleep Information Total Hours of Sleep: 6.5 Meal Information Percent Meal Consumed - Breakfast: 100 Percent Meal Consumed - Lunch: 100 Percent Meal Consumed - Dinner: 100 Subjective Subjective Patient was seen & assessed and interval progress reviewed with treatment team. Staff report the patient had admitted her suicide attempt was related to being confronted by her family regarding her alcohol use. Pt had denied willingness for outpatient psychiatrist and/or therapist. She was also unwilling for inpatient D&A rehabilitation. Pt was seen today to assess progress since admission. She states she is feeling "tired" today, and is discouraged as "the medications are not helping, I don't feel any different." Pt was reminded of reasonable expectations regarding timeline of medication benefits. She denies side effects related to medication adjustments. She states, "I've never had side effects with the Prozac, except happiness....and it would make me spend excessively. But that beats feeling like this." She remains resist to outpatient psychiatric treatment after discharge. She denies SI as well as other needs or concerns at this time. Physical Exam Psychiatric Orientation: alert, oriented x 3 and cooperative Apperance: appropriately dressed and + disheveled (as is found to be in bed sleeping) Eye Contact: good eye contact Motor Behavior: no abnormal motor movements (observed while laying in bed) Speech: normal rate/rhythm/volume of speech Affect: + depressed affect and mood congruent with affect Mood: + depressed mood ("I don't feel any different") Thought Process: goal directed thought process, clear/coherent thought process and thought association intact Thought Content: reality based without delusions; no hopelessness Suicidal Thoughts: denies suicidal thoughts and denies suicidal intent Homicidal Thoughts: denies homicidal thoughts Hallucinations: no auditory hallucinations and no visual hallucinations Cognition: attention grossly intact and language grossly intact Insight: + poor insight Judgement: + poor judgement Vital Signs (Past 24 Hours) Last Vital Signs Temp 37 C 08/07/19 10:25 Pulse 92 H 08/07/19 10:25 Resp 14 08/07/19 10:25 BP 162/102 H 08/07/19 10:25 Pulse Ox 94 08/06/19 21:51 Results & Data Laboratory Results Laboratory Results - last 24 hr 08/07/19 08/07/19 06:58 06:58 Fasting Glucose 95 Triglycerides 89 Cholesterol 153 LDL Cholesterol, Calc 73 VLDL Cholesterol, Calc 18 HDL Cholesterol 62 Cholesterol/HDL Ratio 3 Vitamin B12 315 Folate 11.25 Current Inpatient Medications Current Inpatient Medications: Current Inpatient Medications Acetaminophen (Tylenol) 650 mg PO Q4H PRN PRN Reason: Headache or Minor Fever Stop: 09/04/19 16:27 Last Admin: 08/06/19 19:01 Dose: 650 mg Documented by: Al Hydrox/Mg Hydrox/Simethicone (Maalox) 30 ml PO Q4H PRN PRN Reason: GI Upset Stop: 09/04/19 16:27 [facility] Stop: 09/05/19 10:29 Last Admin: 08/07/19 08:04 Dose: 5 mg Documented by: Bismuth Subsalicylate (Kaopectate) 15 ml PO PRN PRN PRN Reason: Loose Stool Stop: 09/04/19 16:27 Fluoxetine HCl (Prozac) [facility] Stop: 09/05/19 10:29 Last Admin: 08/07/19 08:04 Dose: 10 mg Documented by: Gabapentin (Neurontin) 600 mg PO Q12H [facility] Stop: 08/08/19 06:01 Gabapentin (Neurontin) 600 mg PO Q24H [facility] Stop: 08/09/19 06:01 Hydroxyzine HCl (Vistaril) 50 mg PO HSZ PRN PRN Reason: Insomnia Stop: 09/04/19 16:44 Hydroxyzine HCl (Vistaril) 25 mg PO Q4H PRN PRN Reason: Anxiety Stop: 09/04/19 16:27 Lorazepam (Ativan) 1 mg PO ONE PRN; Protocol PRN Reason: EtoH Withdrawal AWSS 6-10 Magnesium Hydroxide (Milk Of Magnesia) 30 ml PO DAILY PRN PRN Reason: Constipation Stop: 09/04/19 16:27 Sodium Chloride ([place] Nasal) 1 - 2 sprays NA PRN PRN PRN Reason: Nasal Dryness/Congestion Stop: 09/04/19 16:27 Mental Health & Subst Abuse Tx Therapist Name of Therapist: Denies Director Translation Name of Director Translation: Denies Post Discharge Appointments Primary Care Physician Name Of Family Doctor: Adrianne Castellanos/Dr. Garduno Date of Appointment with PCP: 08/15/19 Time of Appointment with PCP: 10:45am (1) Depression Depression Type: unspecified Qualified Code(s): F32.9 - Major depressive disorder, single episode, unspecified
[2019-08-07] MEDS: ACETAMINOPHEN 325 MG TAB PO PRN (15:58)
[2019-08-08] MEDS: GABAPENTIN 600 MG TAB PO SCH (06:13)
[2019-08-08] MEDS: ARIPiprazole 5 MG TAB PO SCH (07:44)
[2019-08-08] MEDS: FLUOXETINE HCL 10 MG CAP PO SCH (07:44)
[2019-08-08] MEDS: FLUOXETINE HCL 20 MG CAP PO SCH (08:39)
--- NOTE | 2019-08-08 08:51 | Psychiatric Progress Note ---
Date of Service August 08, 2019 Impression / Recommendations Impression 59-year-old admitted voluntarily for inpatient psychiatric treatment after intentional overdose of quetiapine in combination with alcohol. Pt was admitted medically for detox and monitoring s/p OD. Primary stressors include financial difficulties and lack of healthy insurance. She had also reported recent family intervention with reported concerns regarding her alcohol use. Pt has historical diagnoses of MDD, with psychotic features and alcohol use disorder. Pt denied benefit from psychiatric regimen of escitalopram and quetiapine, despite reported compliance. She was admitted with worsening depression and anxiety. Current outpatient medications were discontinued, and fluoxetine and aripiprazole were initiated - with plan to titrate to effective doses. Pt initially refusing all recommended outpatient treatment, including recommendation for D&A rehab. She is now considering inpatient rehab options and is interested in referral to an outpatient psychiatrist. Pt remains at high risk of harm to self if discharged prematurely, given multiple suicide attempts, limited improvement in her condition, and continued medication adjustments. (1) Depression: q15 minute safety checks admit to 3S stop lexparo and retrial of prozac given rpt view of tolerance and notable alleivation from it stopped seroquel added abilify, will be affordable with good rx encouraging aftercare with therapy and psychiatric med management appts reality testing and supportive and individual and group and miluei therapy family meeting with 08/07 - Will titrate fluoxetine to 20mg tomorrow morning - Continue aripiprazole 5mg, titrating as tolerated - Continue to encourage participation in group and recreational programming - Encourage family meeting with 08/08 - Continue current medication regimen, consider further titration as tolerated/indicated - Pt now agreeable to exploring outpatient psychiatric follow-up - Explore referral to [facility] for inpatient D[facility]A treatment - Continues to struggle with feelings of lack of worth/purpose, and unable to contract for safety outside of hospital (2) Alcohol abuse: addressing pt's drinking and attempting to engage and improve insight and motivation to address her drinking, psychoeducation abut how alcohol aggravates her anxiety/depression/psychotic features. aiming for further interventions for her AUD as pt can tolerate 08/08 -Brief intervention was offered and accepted Intervention was greater than 10 min in length. Brief interventions include: 1. Assess Readiness to Quit, 2. Advise: Help Patient to Reduce or Abstain from Alcohol, 3. Agree: Set Specific, Feasible Goals, 4. Assist: Anticipate barriers, Problem-Solving Solutions. Social work to 5. Arrange: Referrals to appropriate treatment. Summary of intervention: The patient is in contemplative stage with regards to transtheoretical model of change. The patient is advised to decrease alcohol consumption due to depressant effects and risk of interactions with prescription medications. The patient was advised of recommendations for abstinence from alcohol and other abusable substances and to attend substance abuse treatment at discharge, and will be provided with recovery materials to continue to education self on how to cope with their condition without drinking. - Pt is agreeable to referral to the [facility] to explore inpatient D&A rehabilitation, which she thinks would be helpful - Hoping that removed all alcohol from the home during this admission, encouraged to call him and inquire - She is now agreeable to psychiatric aftercare, will consider dual diagnosis facilities Inventory Assets Strengths: willingness to take medication, insight into paranoid thinking Needs: abstaining from alcohol, outpt providers, change of medication, Risk Factors Assessment Male: No : Yes Health Problems: No Mental Health Diagnoses: Yes Substance Use Disorders: Yes Previous Attempt: Yes Previous Psychiatric Hospitalization: Yes Hopelessness: Yes Interval History Identifying Information BEAR SANDHU is a 59-year-old F who currently lives in [place] with , has a history of major depression with psychotic features and AUD, and was admitted on 08/05/19 16:00 on a 201 voluntary commitment for her depression and psychotic features followings a slide attempt by intentional OD of Seroquel with alcohol also being consumed. She was admitted following discharge from the medical unit with the admission tied to AMS from her overdose. She was originally brought to the hospital by first responders after called 911 after she disclosed to him about her suicide attempt. Chief Complaint "A little shaky, just my legs." Review of Systems Notes Constitutional: improved level of fatigue today Cardiovascular: denied Respiratory: denied Gastrointestinal: denied Neurological: denied Psychiatric: denies symptoms other than stated above Total of at least 10 systems reviewed, pertinent positives as above and in HPI. Sleep Information Total Hours of Sleep: 9 Meal Information Percent Meal Consumed - Breakfast: 100 Percent Meal Consumed - Lunch: 100 Percent Meal Consumed - Dinner: 100 Subjective Subjective Patient was seen & assessed and interval progress reviewed with nursing and social work. Staff report the patient had slept for the majority of the day yesterday, refusing many groups. She had also continued to decline recommendations for outpatient psychiatric treatment after discharge. Pt was seen today to assess progress since admission. Pt states that she is feeling "a little shaky" today, "just my legs." She states that this feeling is not abnormal for her in the morning - and denies other related symptoms. Pt was asked how her day was yesterday, and replied "well, I slept for most of it." She explains that she was feeling "finally safe to sleep" and believed she was catching up on sleep she "did not feel safe to be getting at home." When asked what she meant by this, the patient stated "it's pretty private stuff, I can't say." Pt was encouraged to reach out to staff with any safety concerns that we may be able to mitigate before discharge. Pt tolerated conversations about "getting to a place where I feel like living", as we discussed the possibility of finding purpose in activities beyond just caring for her children and grandchildren. She expressed desire to volunteer after discussing this with staff this morning. We also discussed her perception of the role alcohol plays in her ongoing mood concerns. Pt stated, "I'd love to be in a place where I don't need it, where I can go without." At this time, she feels that drinking 1-2 alcoholic beverages daily has helped her to relax and "feel happy." She states, "I hope these new meds will be able to do that for me, so I don't need the alcohol." Pt states that she does feel she needs inpatient D&A rehab, but is concerned about finances and does not think they can afford it. She was willing for a referral to the [facility] to discuss her options. She also participated in a conversation regarding our recommendation for outpatient psychiatric follow-up - explaining the benefit of working with someone trained to manage psychiatric medications would be helpful in maintaining the improvements she is making here. After our discussion, patient was at least willing to sign rele ases to explore outpatient follow-up. Pt denies SI presently, but continues to appear very depressed. She continues to report worthlessness and hopelessness, and hopes to "get to a place where I feel like living." She denies other needs or concerns at this time. Physical Exam Psychiatric Orientation: alert, oriented x 3 and cooperative Apperance: appropriately dressed (casually, in sweater and sweatpants) and + disheveled Eye Contact: good eye contact Motor Behavior: steady gait and station and no abnormal motor movements Speech: normal rate/rhythm/volume of speech Affect: + depressed affect, + tearful affect and mood congruent with affect Mood: + depressed mood and + anxious mood Thought Process: goal directed thought process, clear/coherent thought process and thought association intact Thought Content: reality based without delusions, + hopelessness, + worthlessness and + loneliness Suicidal Thoughts: denies suicidal thoughts and denies suicidal intent Homicidal Thoughts: denies homicidal thoughts Hallucinations: no auditory hallucinations and no visual hallucinations Cognition: attention grossly intact and language grossly intact Insight: + fair insight Judgement: + fair judgement Vital Signs (Past 24 Hours) Last Vital Signs Temp 36.7 C 08/08/19 06:27 Pulse 105 H 08/08/19 06:28 Resp 18 08/08/19 06:27 BP 136/95 08/08/19 06:28 Pulse Ox 94 08/06/19 21:51 Results & Data Current Inpatient Medications Current Inpatient Medications: Current Inpatient Medications Acetaminophen (Tylenol) 650 mg PO Q4H PRN PRN Reason: Headache or Minor Fever Stop: 09/04/19 16:27 Last Admin: 08/07/19 15:58 Dose: 650 mg Documented by: Al Hydrox/Mg Hydrox/Simethicone (Maalox) 30 ml PO Q4H PRN PRN Reason: GI Upset Stop: 09/04/19 16:27 Aripiprazole (Abilify) 5 mg PO QAM [facility] Stop: 09/05/19 10:29 Last Admin: 08/08/19 07:44 Dose: 5 mg Documented by: Bismuth Subsalicylate (Kaopectate) 15 ml PO PRN PRN PRN Reason: Loose Stool Stop: 09/04/19 16:27 Fluoxetine HCl (Prozac) 20 mg PO QAM [facility] Stop: 09/07/19 08:59 Last Admin: 08/08/19 08:39 Dose: 10 mg Documented by: Gabapentin (Neurontin) 600 mg PO Q24H [facility] Stop: 08/09/19 06:01 Hydroxyzine HCl (Vistaril) 25 mg PO Q4H PRN PRN Reason: Anxiety Stop: 09/04/19 16:27 Magnesium Hydroxide (Milk Of Magnesia) 30 ml PO DAILY PRN PRN Reason: Constipation Stop: 09/04/19 16:27 Sodium Chloride ([place] Nasal) 1 - 2 sprays NA PRN PRN PRN Reason: Nasal Dryness/Congestion Stop: 09/04/19 16:27 Trazodone HCl (Desyrel) 50 mg PO HS PRN PRN Reason: Sleep Stop: 09/06/19 17:26 Mental Health & Subst Abuse Tx Therapist Name of Therapist: Denies Switch Tender Name of Switch Tender: Denies Post Discharge Appointments Primary Care Physician Name Of Family Doctor: Adrianne Mandel - Dr. Castellanos/Dr. Garduno Date of Appointment with PCP: 08/15/19 Time of Appointment with PCP: 10:45am (1) Depression Depression Type: unspecified Qualified Code(s): F32.9 - Major depressive disorder, single episode, unspecified
[2019-08-08] MEDS: ACETAMINOPHEN 325 MG TAB PO PRN (13:58)
[2019-08-08] MEDS: TRAZODONE HCL 50 MG TAB PO PRN ×2 (20:21→21:56)
[2019-08-09] MEDS ORDERED: GABAPENTIN 600 MG TAB PO SCH (06:00)
[2019-08-09] MEDS: FLUOXETINE HCL 20 MG CAP PO SCH (08:37)
[2019-08-09] MEDS: ARIPiprazole 5 MG TAB PO SCH (09:02)
--- NOTE | 2019-08-09 10:06 | Psychiatric Progress Note ---
Date of Service August 09, 2019 Impression / Recommendations Impression 59-year-old admitted voluntarily for inpatient psychiatric treatment after intentional overdose of quetiapine in combination with alcohol. Pt was admitted medically for detox and monitoring s/p OD. Primary stressors include financial difficulties and lack of healthy insurance. She had also reported recent family intervention with reported concerns regarding her alcohol use. Pt has historical diagnoses of MDD, with psychotic features and alcohol use disorder. Pt denied benefit from psychiatric regimen of escitalopram and quetiapine, despite reported compliance. She was admitted with worsening depression and anxiety. Current outpatient medications were discontinued, and fluoxetine and aripiprazole were initiated. Fluoxetine being titrated to 40mg, as previously effective dose. Pt unwilling to continue aripiprazole, as she believes it is causing nausea and headaches, and is concerned about affordability. Pt initially refusing all recommended outpatient treatment, including recommendation for D&A rehab. She is now considering inpatient rehab options and is interested in referral to an outpatient psychiatrist. She has been referred to the [facility] for financial assistance. Pt finally agreeable with family meeting with today. Pt remains at high risk of harm to self if discharged prematurely, given multiple suicide attempts, limited improvement in her condition, and continued medication adjustments. (1) Depression: q15 minute safety checks admit to 3S stop lexparo and retrial of prozac given rpt view of tolerance and notable alleivation from it stopped seroquel added abilify, will be affordable with good rx encouraging aftercare with therapy and psychiatric med management appts reality testing and supportive and individual and group and miluei therapy family meeting with 08/07 - Will titrate fluoxetine to 20mg tomorrow morning - Continue aripiprazole 5mg, titrating as tolerated - Continue to encourage participation in group and recreational programming - Encourage family meeting with 08/08 - Continue current medication regimen, consider further titration as tolerated/indicated - Pt now agreeable to exploring outpatient psychiatric follow-up - Explore referral to [facility] for inpatient D&A treatment - Continues to struggle with feelings of lack of worth/purpose, and unable to contract for safety outside of hospital 08/09 - Pt is declining to continue aripiprazole due to cost concern and perceived side effects. Pt verbalizing desire to return to 40mg of fluoxetine, which had worked well to manage her depressive symptoms several months ago. - Reviewed patient-reported excessive spending 2 decades ago, and recommendation to monitor for possible activation from fluoxetine dosing - she denies any other symptoms more consistent with a bipolar presentation - but we did review signs and symptoms. It seems excessive spending may have been a coping strategy to deal with depression, rather than compulsive behavior resulting from activated mood. - Pt agreeable with trial of diphenhydramine for sleep - as she inquires about using Tylenol PM prn after discharge - agreed to trial of diphenhydramine this evening. Can utilize increased dose of trazodone if diphenhydramine is ineffective - Pt finally agreeable with family meeting, to arrive this afternoon - Pt verbalizing desire for discharge soon, but aftercare is still not solidified (2) Alcohol abuse: addressing pt's drinking and attempting to engage and improve insight and motivation to address her drinking, psychoeducation abut how alcohol aggravates her anxiety/depression/psychotic features. aiming for further interventions for her AUD as pt can tolerate 08/08 -Brief intervention was offered and accepted Intervention was greater than 10 min in length. Brief interventions include: 1. Assess Readiness to Quit, 2. Advise: Help Patient to Reduce or Abstain from Alcohol, 3. Agree: Set Specific, Feasible Goals, 4. Assist: Anticipate barriers, Problem-Solving Solutions. Social work to 5. Arrange: Referrals to appropriate treatment. Summary of intervention: The patient is in contemplative stage with regards to transtheoretical model of change. The patient is advised to decrease alcohol consumption due to depressant effects and risk of interactions with prescription medications. The patient was advised of recommendations for abstinence from alcohol and other abusable substances and to attend substance abuse treatment at discharge, and will be provided with recovery materials to continue to education self on how to cope with their condition without drinking. - Pt is agreeable to referral to the [facility] to explore inpatient D&A rehabilitation, which she thinks would be helpful - Hoping that removed all alcohol from the home during this admission, encouraged to call him and inquire - She is now agreeable to psychiatric aftercare, will consider dual diagnosis facilities 08/09 - Pt now stating she is only interested in information about D&A rehab, not clearly as motivated to attend - Has accepted referral to the [facility] to explore outpatient D&A treatment - Accepted family meeting with Inventory Assets Strengths: willingness to take medication, insight into paranoid thinking Needs: abstaining from alcohol, outpt providers, change of medication, Risk Factors Assessment Male: No : Yes Health Problems: No Mental Health Diagnoses: Yes Substance Use Disorders: Yes Previous Attempt: Yes Previous Psychiatric Hospitalization: Yes Hopelessness: Yes Interval History Identifying Information BEAR SANDHU is a 59-year-old F who currently lives in [place] with , has a history of major depression with psychotic features and AUD, and was admitted on 08/05/19 16:00 on a 201 voluntary commitment for her depression and psychotic features followings a slide attempt by intentional OD of Seroquel with alcohol also being consumed. She was admitted following discharge from the medical unit with the admission tied to AMS from her overdose. She was originally brought to the hospital by first responders after called 911 after she disclosed to him about her suicide attempt. Chief Complaint "I had a list of questions, can I go get my book so I don't forget?" Review of Systems Notes Constitutional: reports ongoing restless sleep, believes trazodone was ineff ective last evening Cardiovascular: denied Respiratory: denied Gastrointestinal: denied Neurological: denied Psychiatric: denies symptoms other than stated above Total of at least 10 systems reviewed, pertinent positives as above and in HPI. Sleep Information Total Hours of Sleep: 4.5 Sleep Comments: pt given trazodone x2 per rn. pt on q-15 minute checks Meal Information Percent Meal Consumed - Breakfast: 80 Percent Meal Consumed - Lunch: 100 Percent Meal Consumed - Dinner: 100 Subjective Subjective Patient was seen & assessed and interval progress reviewed with treatment team. Staff reports the patient has been largely resistant to outpatient recommendations, although the [facility] referral remains in place. Surprisingly, patient rated herself a 6/10 and "anxious to go home." It is reported that she refused her morning dose of aripiprazole, reporting side effects of nausea and headache. Patient was seen today to assess progress since admission. Pt states that she has several questions written down, and was invited to begin the interview with these concerns. She begins by stating the aripiprazole is "making me sick to my stomach." When asked if this is been getting better or worse as she continues on the medication, patient is unable to clearly identify, as "I only had like 3 doses." Continued education was provided regarding utilizing aripiprazole as an adjunctive medication to target her depressive symptoms. Pt was offered a lower dose, and declined - stating she is no longer wishing to take the medication. We reviewed her medication history, patient stating she was doing well 8-9 months ago when taking fluoxetine 40mg daily. She was agreeable to further titrating her dose of fluoxetine, accepting an additional 20mg dose this afternoon. Pt states that she is expecting her grandchildren to visit this weekend, and is wanting discharge in order to clean up her house before their arrival. Pt was able to be encouraged to involve her in a family meeting - and is requesting discharge today. It was explained to the patient that treatment team anticipated another 1-2 days, along with additional concern that we are continuing to make medication adjustments. Pt was remaining hopeful for a discharge tonight, despite being informed multiple times by this provider that we are recommending she remain in treatment until tomorrow at the earliest. Pt denies SI, as well as other acute needs or concerns. Physical Exam Psychiatric Orientation: alert, oriented x 3 and cooperative (superficially) Apperance: appropriately dressed (casually, in sweater and sweat pants), + dis heveled (hair appearing messy) and appeared stated age Eye Contact: good eye contact Motor Behavior: steady gait and station and no abnormal motor movements Speech: normal rate/rhythm/volume of speech Affect: + depressed affect, + tearful affect and mood congruent with affect Mood: + depressed mood (but admitting to some improvement) Thought Process: goal directed thought process, clear/coherent thought process and thought association intact Thought Content: reality based without delusions; no hopelessness and no worthlessness Suicidal Thoughts: denies suicidal thoughts and denies suicidal intent Homicidal Thoughts: denies homicidal thoughts Hallucinations: no auditory hallucinations and no visual hallucinations Cognition: attention grossly intact and language grossly intact Insight: + fair insight Judgement: + fair judgement Vital Signs (Past 24 Hours) Last Vital Signs Temp 36.4 C L 08/09/19 06:39 Pulse 111 H 08/09/19 06:39 Resp 18 08/09/19 06:39 BP 170/104 H 08/09/19 06:39 Pulse Ox 94 08/06/19 21:51 Results & Data Current Inpatient Medications Current Inpatient Medications: Current Inpatient Medications Acetaminophen (Tylenol) 650 mg PO Q4H PRN PRN Reason: Headache or Minor Fever Stop: 09/04/19 16:27 Last Admin: 08/08/19 13:58 Dose: 650 mg Documented by: Al Hydrox/Mg Hydrox/Simethicone (Maalox) 30 ml PO Q4H PRN PRN Reason: GI Upset Stop: 09/04/19 16:27 Aripiprazole (Abilify) 5 mg PO QAM [facility] Stop: 09/05/19 10:29 Last Admin: 08/09/19 09:02 Dose: Not Given Documented by: Bismuth Subsalicylate (Kaopectate) 15 ml PO PRN PRN PRN Reason: Loose Stool Stop: 09/04/19 16:27 Fluoxetine HCl (Prozac) 20 mg PO QAM [facility] Stop: 09/07/19 08:59 Last Admin: 08/09/19 08:37 Dose: 20 mg Documented by: Hydroxyzine HCl (Vistaril) 25 mg PO Q4H PRN PRN Reason: Anxiety Stop: 09/04/19 16:27 Magnesium Hydroxide (Milk Of Magnesia) 30 ml PO DAILY PRN PRN Reason: Constipation Stop: 09/04/19 16:27 Sodium Chloride ([place] Nasal) 1 - 2 sprays NA PRN PRN PRN Reason: Nasal Dryness/Congestion Stop: 09/04/19 16:27 Trazodone HCl (Desyrel) 50 mg PO HS PRN PRN Reason: Sleep Stop: 09/06/19 17:26 Last Admin: 08/08/19 21:56 Dose: 50 mg Documented by: Mental Health & Subst Abuse Tx Psychiatrist Name of Psychiatrist: [facility] Psychiatrist's Time of Appointment with Psychiatrist: Referral made, can't schedule w/o insurance from [facility] Psychiatric Appointment Comment: [address] [place] [id number] Therapist Name of Therapist: Denied Post Hole Digger Name of Post Hole Digger: [facility] Phone Number for Post Hole Digger: Case Management Appointment Comment: [address], [place] [address] Post Discharge Appointments Primary Care Physician Name Of Family Doctor: Adrianne Mandel - Dr. Castellanos/Dr. Garduno Primary Care Date of Appointment with PCP: 08/15/19 Time of Appointment with PCP: 10:45am Provider Appointment Comment: [place] [id number] Contact Information Discharge Discharge Address: [address] [place], [place] [address] [id number] (1) Depression Depression Type: unspecified Qualified Code(s): F32.9 - Major depressive disorder, single episode, unspecified
[2019-08-09] MEDS ORDERED: TRAZODONE HCL 100 MG TAB PO PRN (10:30)
[2019-08-09] MEDS ORDERED: FLUOXETINE HCL 20 MG CAP PO ONE (13:00)
[2019-08-09] MEDS ORDERED: FLUOXETINE HCL 20 MG CAP PO SCH (13:00)
[2019-08-10] MEDS ORDERED: FLUOXETINE HCL 20 MG CAP PO SCH (09:00)
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
== END 2019-08-10 10:30 | disposition home or self-care (01) | DRG 885 ==
LOC: 3S 16:00

== ENCOUNTER 2022-03-09 09:22 | Observation (INO) ==
--- NOTE | 2022-03-09 09:37 | Emergency Department Note ---
Impression & Plan Depression, Hypokalemia, Acute electrocardiogram changes, Anxiety, Suicidal ideation ED Provider Note NAME: BEAR SANDHU AGE: 62 SEX: F : 1960 ARRIVES VIA: Walk-In INFORMANT: Patient, ED PROVIDER(S): Keith Bernal MD Chief Complaint: Paranoia, anxiety, palpitation HPI: Patient presents due to concern for mental wellness issues and states that she feels as though she is having increasing palpitations, anxiety as well as thinking that her is laughing at her. The patient does feel occasionall y paranoid. Patient states that her sleep and appetite are poor. The patient does have fleeting thoughts of suicidal ideation but without plan. The patient does have a remote history of trying to overdose and cutting her wrists several years ago. Patient denies any chest pains or shortness of breath. Patient Nuys any nausea vomiting or fevers. The patient does have a history of chronic alcoh ol abuse but has been sober for approximate 7 months. The patient is accompanied by her at bedside. Patient denies any HI. The patient does feel as though she is hearing things but not seeing anything. 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 Patient denies any current alcohol tobacco or substance use. Patient denies any prior history of thyroid issues supplement or stimulants. The patient has been taking Wellbutrin as well as trazodone as needed but states that she has used it with increasing frequency. Patient thinks that she might benefit from medication changes and may benefit from inpatient treatment. ROS: See HPI for pertinent positives and negatives. A total of 10 systems were reviewed and otherwise negative. Past medical history: See below Surgical history: See below Social history: See below Physical Exam: GENERAL: NAD, non-toxic. EYE EXAM: Normal conjunctiva. PERRL, no anisocoria and EOM's grossly intact w/o pain. OROPHARYNX: Moist mucus membranes. Grossly normal dentition. NECK: Supple, no nuchal rigidity, no adenopathy, non-tender. No signs of meningismus. LUNGS: Clear to auscultation. Normal chest wall mechanics. HEART: NSR, no MRG. ABDOMEN: Abdomen soft, non-tender, normo-active bowel sounds, no masses, no rebound or guarding. BACK: No CVA TTP. SKIN: No rashes and no bruising. UPPER EXTREMITIES: Upper extremities are grossly normal. LOWER EXTREMITIES: Grossly normal, no edema. NEURO EXAM: A&O x3, cranial nerves II-XII grossly intact, normal speech, moves all 4 extremities on command w/o issue. Psych: Depressed mood, passive SI, negative HI, positive AH, negative VH. Differential diagnoses: Mood disorder, infection, hypoglycemia, electrolyte abnormalities, cardiac sources, intracerebral event, toxicologic, trauma, neurologic, as well as other pathologies. Course: Patient was seen and evaluated the bedside. Full history physical exam was performed. EKG interpreted by me Sinus tachycardia, rate of 109, normal intervals, normal axis, slight ST depression in the high lateral leads. No obvious ST elevations. MDM: Patient presents due to concern for mental wellness. Blood work was obtained a nd the patient was given a small amount of Ativan. Patient's EKG showed sinus tachycardia patient's depressions do appear to be new from comparison EKG August 03, 2019. Work shows that the patient does have hyperkalemia. A troponin was added along with magnesium. Magnesium is normal and troponin is not elevated. Due to concerns for the patient's changes on EKG with her associated palpitations and hyperkalemia thought best to have the patient is a medical admit. I did speak with the on-call hospitalist HORTENCIA Bradley and the patient was admitted by Dr. Hampton Past Med/Surg History Medical History Alcohol abuse hx of, sober since 08/2021 Anxiety Depression Surgical History Hx of section Family History Mother Diabetes Other Depression Social History Smoking Status: Never smoker Second Hand Exposure: No; Do You Dip or Chew Tobacco: No; Tobacco Cessation Education Requested by Patient: No Hx Alcohol Use: Yes Alcohol type: hard liquor Hx Substance Use: No Preferred Language: Panamanian Communication Ability: Effective Zoning Technician Required: No Beliefs That Will Affect Care: None Current Living Situation: Spouse Other Information That Helps Us Care for You: No Feels Safe at Home: Yes Assistive Devices: None Assistive Devices Comment: partial upper dentures, readers Allergies Allergies Allergy/AdvReac Type Severity Reaction Status Date / Time No Known Allergies Allergy Verified 03/09/22 10:35 Home Meds Home Medications Medication Instructions Recorded Confirmed buspirone 15 mg tablet 15 mg PO TID 03/09/22 03/09/22 trazodone 100 mg tablet 100 mg PO HS 03/09/22 03/09/22 Previous Rx's Medication Instructions Recorded fluoxetine 40 mg capsule 40 mg PO QAM #30 cap 08/10/19 Results & Data (ED) Vital Signs Vital Signs - 24 hr 03/09/22 09:29 03/09/22 11:37 03/09/22 13:36 Temperature 36.8 C Temperature Source Temporal Artery Scan Pulse Rate 118 H Pulse Rate [Right Finger] 120 H 108 H Respiratory Rate 18 14 Blood Pressure 160/99 H Blood Pressure [Right Arm] 167/109 H 161/92 H Blood Pressure Mean 119 Blood Pressure Mean [Right Arm] 128 115 Blood Pressure Position [Right Arm] Standing Pulse Oximetry 94 98 Oxygen Delivery Method Room Air Room Air Sepsis Recent Fever Within 48 Hours No Sepsis New/Unexplained Change in Mental Status No Sepsis Action Taken by Nursing No Action Required Home Medications Current Medication List: was personally reviewed by me Laboratory Data Attestation: I reviewed the patient's lab results. Result diagrams: 03/09/22 10:02 03/09/22 19:49 Lab Results 03/09/22 03/09/22 03/09/22 Range/Units 09:49 09:49 09:50 WBC (4.8-10.8) K/uL RBC (4.2-5.4) M/uL Hgb (12.0-16.0) g/dL Hct (37-47) % MCV (80-100) fL MCH (25-34) pg MCHC (32-36) g/dL RDW Std Deviation (36.4-46.3) fL RDW Coeff of Fouzia (11.5-14.5) % Plt Count (130-400) K/uL MPV (7.4-10.4) fL Immature Gran % (Auto) % Neut % (Auto) % Lymph % (Auto) % [place] % (Auto) % Eos % (Auto) % Baso % (Auto) % Neut # (Auto) (1.4-6.5) K/uL Lymph # (Auto) (1.2-3.4) K/uL [place] # (Auto) (0.11-0.59) K/uL Eos # (Auto) (0-0.5) K/uL Baso # (Auto) (0-0.2) K/uL Immature Gran # (Auto) (0.00-0.02) K/uL Sodium (136-145) mmol/L Potassium (3.5-5.1) mmol/L Chloride (98-107) mmol/L Carbon Dioxide (21-32) mmol/L Anion Gap (3-11) BUN (6-23) mg/dl Creatinine (0.6-1.2) mg/dl Est Cr Clr Drug Dosing ml/min Est GFR ( Amer) ml/min Est GFR (Non-Af Amer) ml/min BUN/Creatinine Ratio (10-20) Glucose (70-99(Fasting)) mg/dl Calcium (8.5-10.1) mg/dl Magnesium (1.7-2.4) mg/dl Total Bilirubin (0.2-1.0) mg/dl AST (13-39) U/L ALT (7-52) U/L Alkaline Phosphatase (34-104) U/L Troponin I High Sens Total Protein (6.0-8.3) gm/dl Albumin (3.4-5.0) gm/dl Globulin (2.5-4.0) gm/dl Albumin/Globulin Ratio (0.9-2) TSH (0.300-4.500) uIu/ml Urine Color Yellow Urine Appearance Clear (Clear) Urine pH 6.0 (4.5-7.5) Ur Specific [place] 1.005 (1.000-1.030) Urine Protein Negative (Negative) Urine Glucose (UA) Negative (Negative) Urine Ketones Trace H (Negative) Urine Blood Negative (Negative) Urine Nitrite Negative (Negative) Urine Bilirubin Negative (Negative) Urine Urobilinogen Negative (Negative) Ur Leukocyte Esterase Negative (Negative) Salicylates (3.0-30) mg/dl Urine Opiates Screen Neg (Neg) Ur Methadone, Qual Neg (Neg) Acetaminophen (10-30) ug/ml Urine Barbiturates Neg (Neg) Ur Phencyclidine (PCP) Neg (Neg) U Amphetamin/Meth Scrn Neg (Neg) MDMA (Ecstasy) Screen Neg (Neg) U Benzodiazepines Scrn Neg (Neg) Ur Cocaine Metabolite Neg (Neg) U Marijuana (THC) Screen Neg (Neg) Ethyl Alcohol mg/dL (<10.0) mg/dl SARS-CoV-2, RNA, NAAT NEGATIVE (NEGATIVE) 03/09/22 03/09/22 03/09/22 Range/Units 10:02 10:02 10:02 WBC 9.12 (4.8-10.8) K/uL RBC 5.06 (4.2-5.4) M/uL Hgb 15.0 (12.0-16.0) g/dL Hct 44.7 (37-47) % MCV 88.3 (80-100) fL MCH 29.6 (25-34) pg MCHC 33.6 (32-36) g/dL RDW Std Deviation 47.4 H (36.4-46.3) fL RDW Coeff of Fouzia 14.8 H (11.5-14.5) % Plt Count 259 (130-400) K/uL MPV 11.7 H (7.4-10.4) fL Immature Gran % (Auto) 0.7 % Neut % (Auto) 83.1 % Lymph % (Auto) 9.9 % [place] % (Auto) 6.0 % Eos % (Auto) 0.1 % Baso % (Auto) 0.2 % Neut # (Auto) 7.58 H (1.4-6.5) K/uL Lymph # (Auto) 0.90 L (1.2-3.4) K/uL [place] # (Auto) 0.55 (0.11-0.59) K/uL Eos # (Auto) 0.01 (0-0.5) K/uL Baso # (Auto) 0.02 (0-0.2) K/uL Immature Gran # (Auto) 0.06 H (0.00-0.02) K/uL Sodium 138 (136-145) mmol/L Potassium 2.8 L (3.5-5.1) mmol/L Chloride 97 L (98-107) mmol/L Carbon Dioxide 26 (21-32) mmol/L Anion Gap 15 H (3-11) BUN 2 L (6-23) mg/dl Creatinine 0.59 L (0.6-1.2) mg/dl Est Cr Clr Drug Dosing 107.9 ml/min Est GFR ( Amer) 115.5 ml/min Est GFR (Non-Af Amer) 99.6 ml/min BUN/Creatinine Ratio 3.4 L (10-20) Glucose 120 H (70-99(Fasting)) mg/dl Calcium 9.5 (8.5-10.1) mg/dl Magnesium (1.7-2.4) mg/dl Total Bilirubin 0.7 (0.2-1.0) mg/dl AST 23 (13-39) U/L ALT 13 (7-52) U/L Alkaline Phosphatase 93 (34-104) U/L Troponin I High Sens Total Protein 7.8 (6.0-8.3) gm/dl Albumin 4.3 (3.4-5.0) gm/dl Globulin 3.5 (2.5-4.0) gm/dl Albumin/Globulin Ratio 1.2 (0.9-2) TSH 1.881 (0.300-4.500) uIu/ml Urine Color Urine Appearance (Clear) Urine pH (4.5-7.5) Ur Specific [place] (1.000-1.030) Urine Protein (Negative) Urine Glucose (UA) (Negative) Urine Ketones (Negative) Urine Blood (Negative) Urine Nitrite (Negative) Urine Bilirubin (Negative) Urine Urobilinogen (Negative) Ur Leukocyte Esterase (Negative) Salicylates (3.0-30) mg/dl Urine Opiates Screen (Neg) Ur Methadone, Qual (Neg) Acetaminophen (10-30) ug/ml Urine Barbiturates (Neg) Ur Phencyclidine (PCP) (Neg) U Amphetamin/Meth Scrn (Neg) MDMA (Ecstasy) Screen (Neg) U Benzodiazepines Scrn (Neg) Ur Cocaine Metabolite (Neg) U Marijuana (THC) Screen (Neg) Ethyl Alcohol mg/dL (<10.0) mg/dl SARS-CoV-2, RNA, NAAT (NEGATIVE) 03/09/22 03/09/22 03/09/22 Range/Units 10:02 10:02 10:02 WBC (4.8-10.8) K/uL RBC (4.2-5.4) M/uL Hgb (12.0-16.0) g/dL Hct (37-47) % MCV (80-100) fL MCH (25-34) pg MCHC (32-36) g/dL RDW Std Deviation (36.4-46.3) fL RDW Coeff of Fouzia (11.5-14.5) % Plt Count (130-400) K/uL MPV (7.4-10.4) fL Immature Gran % (Auto) % Neut % (Auto) % Lymph % (Auto) % [place] % (Auto) % Eos % (Auto) % Baso % (Auto) % Neut # (Auto) (1.4-6.5) K/uL Lymph # (Auto) (1.2-3.4) K/uL [place] # (Auto) (0.11-0.59) K/uL Eos # (Auto) (0-0.5) K/uL Baso # (Auto) (0-0.2) K/uL Immature Gran # (Auto) (0.00-0.02) K/uL Sodium (136-145) mmol/L Potassium (3.5-5.1) mmol/L Chloride (98-107) mmol/L Carbon Dioxide (21-32) mmol/L Anion Gap (3-11) BUN (6-23) mg/dl Creatinine (0.6-1.2) mg/dl Est Cr Clr Drug Dosing ml/min Est GFR ( Amer) ml/min Est GFR (Non-Af Amer) ml/min BUN/Creatinine Ratio (10-20) Glucose (70-99(Fasting)) mg/dl Calcium (8.5-10.1) mg/dl Magnesium 1.7 (1.7-2.4) mg/dl Total Bilirubin (0.2-1.0) mg/dl AST (13-39) U/L ALT (7-52) U/L Alkaline Phosphatase (34-104) U/L Troponin I High Sens Cancelled Total Protein (6.0-8.3) gm/dl Albumin (3.4-5.0) gm/dl Globulin (2.5-4.0) gm/dl Albumin/Globulin Ratio (0.9-2) TSH (0.300-4.500) uIu/ml Urine Color Urine Appearance (Clear) Urine pH (4.5-7.5) Ur Specific [place] (1.000-1.030) Urine Protein (Negative) Urine Glucose (UA) (Negative) Urine Ketones (Negative) Urine Blood (Negative) Urine Nitrite (Negative) Urine Bilirubin (Negative) Urine Urobilinogen (Negative) Ur Leukocyte Esterase (Negative) Salicylates < 3.0 L (3.0-30) mg/dl Urine Opiates Screen (Neg) Ur Methadone, Qual (Neg) Acetaminophen < 3 L (10-30) ug/ml Urine Barbiturates (Neg) Ur Phencyclidine (PCP) (Neg) U Amphetamin/Meth Scrn (Neg) MDMA (Ecstasy) Screen (Neg) U Benzodiazepines Scrn (Neg) Ur Cocaine Metabolite (Neg) U Marijuana (THC) Screen (Neg) Ethyl Alcohol mg/dL < 10.0 (<10.0) mg/dl SARS-CoV-2, RNA, NAAT (NEGATIVE) 03/09/22 Range/Units 12:34 WBC (4.8-10.8) K/uL RBC (4.2-5.4) M/uL Hgb (12.0-16.0) g/dL Hct (37-47) % MCV (80-100) fL MCH (25-34) pg MCHC (32-36) g/dL RDW Std Deviation (36.4-46.3) fL RDW Coeff of Fouzia (11.5-14.5) % Plt Count (130-400) K/uL MPV (7.4-10.4) fL Immature Gran % (Auto) % Neut % (Auto) % Lymph % (Auto) % [place] % (Auto) % Eos % (Auto) % Baso % (Auto) % Neut # (Auto) (1.4-6.5) K/uL Lymph # (Auto) (1.2-3.4) K/uL [place] # (Auto) (0.11-0.59) K/uL Eos # (Auto) (0-0.5) K/uL Baso # (Auto) (0-0.2) K/uL Immature Gran # (Auto) (0.00-0.02) K/uL Sodium (136-145) mmol/L Potassium (3.5-5.1) mmol/L Chloride (98-107) mmol/L Carbon Dioxide (21-32) mmol/L Anion Gap (3-11) BUN (6-23) mg/dl Creatinine (0.6-1.2) mg/dl Est Cr Clr Drug Dosing ml/min Est GFR ( Amer) ml/min Est GFR (Non-Af Amer) ml/min BUN/Creatinine Ratio (10-20) Glucose (70-99(Fasting)) mg/dl Calcium (8.5-10.1) mg/dl Magnesium (1.7-2.4) mg/dl Total Bilirubin (0.2-1.0) mg/dl AST (13-39) U/L ALT (7-52) U/L Alkaline Phosphatase (34-104) U/L Troponin I High Sens 5.9 Total Protein (6.0-8.3) gm/dl Albumin (3.4-5.0) gm/dl Globulin (2.5-4.0) gm/dl Albumin/Globulin Ratio (0.9-2) TSH (0.300-4.500) uIu/ml Urine Color Urine Appearance (Clear) Urine pH (4.5-7.5) Ur Specific [place]ure (1.000-1.030) Urine Protein (Negative) Urine Glucose (UA) (Negative) Urine Ketones (Negative) Urine Blood (Negative) Urine Nitrite (Negative) Urine Bilirubin (Negative) Urine Urobilinogen (Negative) Ur Leukocyte Esterase (Negative) Salicylates (3.0-30) mg/dl Urine Opiates Screen (Neg) Ur Methadone, Qual (Neg) Acetaminophen (10-30) ug/ml Urine Barbiturates (Neg) Ur Phencyclidine (PCP) (Neg) U Amphetamin/Meth Scrn (Neg) MDMA (Ecstasy) Screen (Neg) U Benzodiazepines Scrn (Neg) Ur Cocaine Metabolite (Neg) U Marijuana (THC) Screen (Neg) Ethyl Alcohol mg/dL (<10.0) mg/dl SARS-CoV-2, RNA, NAAT (NEGATIVE) Administered Medications Buspirone HCl (Buspirone 5 Mg Tab) 10 mg PO TID HONORIO Stop: 04/08/22 20:59 Last Admin: 03/09/22 20:32 Dose: 10 mg Documented by: [id number] Losartan Potassium (Losartan Potassium 25 Mg Tab) 25 mg PO QAM HONORIO Stop: 04/08/22 18:14 Last Admin: 03/09/22 20:29 Dose: Not Given Documented by: [id number] Trazodone HCl (Trazodone Hcl 100 Mg Tab) 100 mg PO HS HONORIO Stop: 04/08/22 20:59 Last Admin: 03/09/22 20:32 Dose: 100 mg Documented by: [id number] Discontinued Medications Sodium Chloride (Nss 1000ml) 1,000 mls @ 999 mls/hr IV .Q1H1M ONE Stop: 03/09/22 15:13 Last Infusion: 03/09/22 16:31 Dose: 0 mls/hr Documented by: [id number] Admin: 03/09/22 15:29 Dose: 999 mls/hr Documented by: [id number] Magnesium Sulfate/Dextrose (Magnesium Sulfate / D5w) 1 gm in 100 mls @ 50 mls/hr IV ONE ONE Stop: 03/09/22 20:07 Last Infusion: 03/09/22 20:37 Dose: 0 mls/hr Documented by: [id number] Admin: 03/09/22 18:25 Dose: 50 mls/hr Documented by: [id number] Lorazepam (Lorazepam 1 Mg Tab) 1 mg PO NOW STA Stop: 03/09/22 09:50 Last Admin: 03/09/22 09:56 Dose: 1 mg Documented by: [id number] Potassium Chloride (Potassium Chloride Crtab 20 Meq Tabcr) 40 meq PO NOW STA Stop: 03/09/22 11:59 Last Admin: 03/09/22 12:20 Dose: 40 meq Documented by: [id number] Potassium Chloride (Potassium Chloride Crtab 20 Meq Tabcr) 40 meq PO NOW STA Stop: 03/09/22 14:36 Last Admin: 03/09/22 15:29 Dose: 40 meq Documented by: [id number] Potassium Chloride (Potassium Chloride Crtab 20 Meq Tabcr) 20 meq PO ONE ONE Stop: 03/09/22 17:01 Last Admin: 03/09/22 17:09 Dose: 20 meq Documented by: [id number] Potassium Chloride (Potassium Chloride Crtab 20 Meq Tabcr) 40 meq PO ONE ONE Stop: 03/09/22 21:09 Last Admin: 03/09/22 21:38 Dose: 40 meq Documented by: [id number] Discharge Plan Visit Data Chief Complaint: Mental Health Evaluation Stated Complaint: PARANOIA, ANXIETY ED Provider: Keith Bernal Discharge Problem: Depression, Hypokalemia, Acute electrocardiogram changes, Anxiety, Suicidal ideation Patient Disposition: Admitted As Inpatient Discharge Instructions Interventions: ED Discharge Assessment Last Done: 03/09/22 15:22
[2022-03-09] MEDS ORDERED: LORazepam 1 MG TAB PO STA (09:49)
[2022-03-09 10:47] LABS: Acetaminophen < 3 ug/ml (10-30); Salicylate < 3.0 mg/dl (3.0-30)
[2022-03-09 10:49] LABS: Albumin Globulin Ratio 1.2 (0.9-2); Albumin Level 4.3 gm/dl (3.4-5.0); BUN Creatinine Ratio 3.4 (10-20); Bilirubin,Total 0.7 mg/dl (0.2-1.0); Calcium 9.5 mg/dl (8.5-10.1); Creatinine Clr Calc Pharmacy 107.9 ml/min; Est GFR (African American) 115.5 ml/min; Est GFR (Non-African American) 99.6 ml/min; Globulin 3.5 gm/dl (2.5-4.0); Potassium 2.8 mmol/L (3.5-5.1); Total Protein 7.8 gm/dl (6.0-8.3)
[2022-03-09 11:20] LABS: Appearance Urine Clear (Clear); Bilirubin Urine Negative (Negative); Blood Urine Negative (Negative); Color Urine Yellow; Glucose Urine UA Negative (Negative); Ketones Urine Trace (Negative); Leukocyte Esterase Urine Negative (Negative); Nitrite Urine Negative (Negative); Protein Urine Negative (Negative); Specific Gravity Urine 1.005 (1.000-1.030); Urobilinogen Urine Negative (Negative)
[2022-03-09 11:36] LABS: Basophils # (auto) 0.02 K/uL (0-0.2); Basophils % (auto) 0.2 %; Eosinophils # (auto) 0.01 K/uL (0-0.5); Eosinophils % (auto) 0.1 %; Hematocrit (blood only) 44.7 % (37-47); Immature Granulocytes # (auto) 0.06 K/uL (0.00-0.02); Immature Granulocytes % (auto) 0.7 %; Lymphocytes % (auto) 9.9 %; Mean Corpuscular Hemoglobin 29.6 pg (25-34); Mean Corpuscular Hgb Conc 33.6 g/dL (32-36); Mean Corpuscular Volume 88.3 fL (80-100); Mean Platelet Volume 11.7 fL (7.4-10.4); Monocytes # (auto) 0.55 K/uL (0.11-0.59); Neutrophils # (auto) 7.58 K/uL (1.4-6.5); Neutrophils % (auto) 83.1 %; Platelet Count 259 K/uL (130-400); RDW Coefficient of Variation 14.8 % (11.5-14.5); RDW Standard Deviation 47.4 fL (36.4-46.3); Red Blood Count 5.06 M/uL (4.2-5.4); White Blood Count 9.12 K/uL (4.8-10.8)
[2022-03-09 11:45] LABS: Amphetamines+Metham, Urine Neg (Neg); Barbiturates, Urine Neg (Neg); Benzodiazepine, Urine Neg (Neg); Cocaine, Urine Neg (Neg); MDMA (Ecstacy), Urine Neg (Neg); Methadone, Urine Neg (Neg); Opiate, Urine Neg (Neg); Phencyclidine, Urine Neg (Neg)
[2022-03-09] MEDS ORDERED: POTASSIUM CHLORIDE CRTAB 20 MEQ TABCR PO STA ×2 (11:58→14:35)
[2022-03-09] MEDS ORDERED: SODIUM CHLORIDE 0.9% 1000ML 1,000 ML IV ONE (14:13)
--- NOTE | 2022-03-09 14:20 | Electrocardiogram Report ---
Test Reason : Blood Pressure : / mmHG Vent. Rate : 109 BPM Atrial Rate : 109 BPM P-R Int : 164 ms QRS Dur : 078 ms QT Int : 336 ms P-R-T Axes : 054 011 121 degrees QTc Int : 452 ms Sinus tachycardia Possible Left atrial enlargement Septal infarct , age undetermined Abnormal ECG When compared with ECG of 03-AUG-2019 10:53, Septal infarct is now Present ST now depressed in Lateral leads T wave inversion now evident in Lateral leads Confirmed by Saul Price ([id number]) on 03/09/2022 2:19:51 PM Referred By: ED Confirmed By:Saul Price
[2022-03-09] MEDS ORDERED: ACETAMINOPHEN 325 MG TAB PO PRN (15:22)
[2022-03-09] MEDS ORDERED: POTASSIUM CHLORIDE CRTAB 20 MEQ TABCR PO ONE ×2 (17:00→21:08)
--- NOTE | 2022-03-09 17:25 | History & Physical Report ---
Date of Service March 09, 2022 Assessment & Plan (1) Suicidal ideation: (2) Anxiety: (3) Depression: Plan: Admit to [facility] telemetry Patient presenting from home with reports of feelings of anxiety, depression for 2 weeks with suicidal ideations overnight without plan or attempt. Patient taking BuSpar 15 mg TID, trazodone 100 mg HS. Restarted an old prescription of fluoxetine 40 mg yesterday. Discussed with Dr. John --will reduce BuSpar to 10 mg 3 times daily, continue trazodone. Hold fluoxetine for now Suicide precautions, one-to-one observation Psych consult (4) Hypokalemia: Plan: K+ 2.8 Etiology unclear however patient does report a poor appetite over the past couple of weeks Replace, follow electrolytes Consider nephrology evaluation (5) Tachycardia: (6) Acute electrocardiogram changes: Plan: HR in the 110s, EKG shows ST depressions and T wave inversion in the lateral leads Anxiety may be contributing tachycardia Denies chest pain Initial HS trop negative --continue to trend Resting echo (7) DVT prophylaxis: Plan: SCDs, ambulate Admission and Anticipated Discharge Date Admission Date: March 09, 2022 History of Present Illness Chief Complaint: Anxiety, palpitations Primary Care Provider: Ai Pina PA-C 62-year-old female with PMH anxiety, depression, previous alcohol abuse (sober since 08/2021), and other problems listed below who presents the ED for evaluation of anxiety and palpitations. Patient reports that over the past 2 weeks, she has been struggling with feelings of anxiety and depression. The past couple of days, she has noted heart palpitations. Denies chest pain and shortness of breath. No lightheadedness, dizziness, diaphoresis, syncopal events. Denies any other recent illnesses, fevers, chills. She has had a very poor appetite however denies abdominal pain, nausea, vomiting, diarrhea. No urinary symptoms. Overnight, patient reports some suicidal thoughts however no plan or attempt. In the ED, labs show hypokalemia with K+ 2.8. EKG shows sinus tachycardia with ST depressions and T wave inversions in the lateral leads. HS trop 5.9. Patient was given potassium replacement, p.o. lorazepam, IVF. Allergies Allergy/AdvReac Type Severity Reaction Status Date / Time No Known Allergies Allergy Verified 03/09/22 10:35 Home Medications Medication Instructions Recorded Confirmed Type fluoxetine 40 mg capsule 40 mg PO QAM #30 cap 08/10/19 03/09/22 Rx buspirone 15 mg tablet 15 mg PO TID 03/09/22 03/09/22 History trazodone 100 mg tablet 100 mg PO HS 03/09/22 03/09/22 History Past Med/Surg History Medical History Alcohol abuse hx of, sober since 08/2021 Anxiety Depression Surgical History Hx of section Family History (Updated 03/09/22 @ 17:24 by HORTENCIA Sunshine) Mother Diabetes Other Depression Social History Smoking Status: Never smoker Second Hand Exposure: No; Hx Alcohol Use: No (History of alcohol abuse, sober since 08/2021) Hx Substance Use: No Preferred Language: Romansh Communication Ability: Effective Records Section Supervisor Required: No Beliefs That Will Affect Care: None Current Living Situation: Spouse Feels Safe at Home: Yes Assistive Devices: None Review of Systems Review of Systems: ROS per HPI, all other systems reviewed and negative Physical Exam Constitutional: WD/WN, vitals as above Eyes: PERRL, conjunctivae normal, anicteric sclerae ENMT: external ear and nose normal, oropharynx normal Respiratory: normal respiratory effort, lungs clear to auscultation Cardiovascular: Rate/Rhythm: regular rhythm and + tachycardic Vessels: normal peripheral pulses Extremities: no edema Gastrointestinal (Abdomen): normal bowel sounds, soft, nontender, no hepatosplenomegaly Musculoskeletal: no cyanosis or clubbing, extremities motor strength 5/5 Skin: no rashes, warm and dry Neurologic: PERRL, EOMI, accommodation nl, no face palsy, no dysarthria Psychiatric: Orientation: alert and oriented x 3 Affect: + depressed affect Results & Data Results & Data ([facility]) Vital Signs (Past 12 Hours) Vital Signs Temp Pulse Pulse Resp BP BP Pulse Ox 03/09/22 17:10 97 H 18 180/107 H 97 03/09/22 13:36 108 H 14 161/92 H 98 03/09/22 11:37 120 H 167/109 H 03/09/22 09:29 36.8 C 118 H 18 160/99 H 94 Laboratory Results Short CBC 03/09/22 Range/Units 10:02 WBC 9.12 (4.8-10.8) K/uL Hgb 15.0 (12.0-16.0) g/dL Hct 44.7 (37-47) % Plt Count 259 (130-400) K/uL BMP 03/09/22 10:02 Sodium 138 Potassium 2.8 L Chloride 97 L Carbon Dioxide 26 BUN 2 L Creatinine 0.59 L Glucose 120 H Calcium 9.5 Liver Function 03/09/22 Range/Units 10:02 Total Bilirubin 0.7 (0.2-1.0) mg/dl AST 23 (13-39) U/L ALT 13 (7-52) U/L Alkaline Phosphatase 93 (34-104) U/L Albumin 4.3 (3.4-5.0) gm/dl Urine 03/09/22 Range/Units 09:49 Urine Color Yellow Urine Appearance Clear (Clear) Urine pH 6.0 (4.5-7.5) Ur Specific [place] 1.005 (1.000-1.030) Urine Protein Negative (Negative) Urine Glucose (UA) Negative (Negative) Code Status & VTE Plan VTE Prophylaxis Plan VTE Prophylaxis will be ordered: Yes Supervising Physician Co-Signing Physician Notes 62-year-old lady with PMH of suicidal attempt [with overdose and bilateral wrist cut few years ago], anxiety, depression, previous alcohol abuse [sober since 09/08/2021] presented to our ED 03/09 for evaluation of anxiety and palpitation ongoing for the last 2 weeks. Patient does have a history of panic attack. Per patient, patient does have history of heart issues with phentermine use in the past many years ago. Patient comes in with 3 weeks of worsening anxiety, also reports decreasing appetite after being sober along with loss of weight. Patient denies fever/diarrhea/belly pain/chest pain/cough/sore throat. Patient denies acute changes in bladder habit. Patient denies use of smoking tobacco or marijuana, also denies use of any recreational drugs. Patient found to have hypokalemia with some EKG changes, patient with no chest pain. Palpitation present. Potassium replaced, repeat BMP in the evening, follow-up. Maintain potassium magnesium level 4.0 and 2.0. For anxiety attacks/suicidal ideation psychiatry consult. Upon examination: GENERAL: Alert and oriented x3. NAD, on RA. HEENT: No pallor, no icterus. Pupils equal, round and reactive to light. Oral mucosa moist. NECK: No JVD, no neck masses. HEART: S1 and S2 heard. Regular rate and rhythm. No murmur, no gallop. RESPIRATORY SYSTEM: Normal AP diameter. No accessory muscle use. No wheezing, no crackles. ABDOMEN: Soft, bowel sounds present, nontender, no distention. CENTRAL NERVOUS SYSTEM: No facial droop. Speech is clear. Obeys simple commands. Moves extremities. EXTREMITIES: No edema, no erythema seen. I have seen and examined the patient and have discussed the case with the provider above. I agree with the assessment and plan as stated. (1) Depression Depression Type: unspecified Qualified Code(s): F32.9 - Major depressive disorder, single episode, unspecified
[2022-03-09] MEDS ORDERED: MAGNESIUM SULFATE / D5W 1 GM/100 ML BAG IV ONE (18:08)
--- NOTE | 2022-03-09 18:19 | Communication Note ---
Date of Service: March 09, 2022 case discussed with hospitalist service as patient was initially referred to [facility] for anxiety and SI. BP elevation continued in ED and she was admitted medically for monitoring. HORTENCIA Maki requested recommendations re: home medications as the patient reported restarting Prozac 40 mg today. Discussed level of observation given reported SI, decreasing Buspar temporarily to 10 mg TID in case some degress of serotonin side effects with Prozac, restart Prozac at 40 mg could contribute to jitteriness/anxiety if after a significant period off, OK to continue trazodone unless QTc prolongation. Liaison to begin history. Full consult to follow.
[2022-03-09] MEDS: LOSARTAN POTASSIUM 25 MG TAB PO SCH (20:29)
[2022-03-09 20:32] LABS: Troponin I High Sensitivity 6.3 pg/ml (0-14)
[2022-03-09] MEDS: busPIRone 5 MG TAB PO SCH (20:32)
[2022-03-09 20:42] LABS: BUN Creatinine Ratio 3.9 (10-20); Calcium 8.7 mg/dl (8.5-10.1); Creatinine Clr Calc Pharmacy 124.9 ml/min; Est GFR (African American) 121.1 ml/min; Est GFR (Non-African American) 104.5 ml/min; Potassium 3.4 mmol/L (3.5-5.1)
[2022-03-09] MEDS ORDERED: traZODone HCL 100 MG TAB PO SCH (21:00)
[2022-03-10 08:18] LABS: Hematocrit (blood only) 43.6 % (37-47); Hemoglobin 14.1 g/dL (12.0-16.0); Mean Corpuscular Hemoglobin 29.3 pg (25-34); Mean Corpuscular Hgb Conc 32.3 g/dL (32-36); Mean Corpuscular Volume 90.5 fL (80-100); Mean Platelet Volume 11.8 fL (7.4-10.4); Platelet Count 282 K/uL (130-400); RDW Coefficient of Variation 15.2 % (11.5-14.5); RDW Standard Deviation 50.6 fL (36.4-46.3); Red Blood Count 4.82 M/uL (4.2-5.4); White Blood Count 6.69 K/uL (4.8-10.8)
[2022-03-10] MEDS: busPIRone 5 MG TAB PO SCH ×2 (09:19→15:00)
[2022-03-10] MEDS: LOSARTAN POTASSIUM 25 MG TAB PO SCH (09:20)
[2022-03-10 11:28] LABS: BUN Creatinine Ratio 6.8 (10-20); Calcium 9.5 mg/dl (8.5-10.1); Creatinine Clr Calc Pharmacy 107.3 ml/min; Est GFR (African American) 115.5 ml/min; Est GFR (Non-African American) 99.6 ml/min; Potassium 4.2 mmol/L (3.5-5.1)
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
--- NOTE | 2022-03-10 13:23 | Electrocardiogram Report ---
Test Reason : Blood Pressure : / mmHG Vent. Rate : 095 BPM Atrial Rate : 095 BPM P-R Int : 196 ms QRS Dur : 074 ms QT Int : 368 ms P-R-T Axes : 040 003 023 degrees QTc Int : 462 ms Poor data quality, interpretation may be adversely affected Normal sinus rhythm Normal ECG When compared with ECG of 09-MAR-2022 09:59, Criteria for Septal infarct are no longer Present ST no longer depressed in Lateral leads T wave inversion no longer evident in Lateral leads Confirmed by Saul Price ([id number]) on 03/10/2022 1:22:51 PM Referred By: REFERRED SELF Confirmed By:Saul Price
--- NOTE | 2022-03-10 15:16 | Discharge Summary ---
Date of Service March 10, 2022 Admission HPI Per Admitting Provider 62-year-old female with PMH anxiety, depression, previous alcohol abuse (sober since 08/2021), and other problems listed below who presents the ED for evaluation of anxiety and palpitations. Patient reports that over the past 2 weeks, she has been struggling with feelings of anxiety and depression. The past couple of days, she has noted heart palpitations. Denies chest pain and shortness of breath. No lightheadedness, dizziness, diaphoresis, syncopal events. Denies any other recent illnesses, fevers, chills. She has had a very poor appetite however denies abdominal pain, nausea, vomiting, diarrhea. No urinary symptoms. Overnight, patient reports some suicidal thoughts however no plan or attempt. In the ED, labs show hypokalemia with K+ 2.8. EKG shows sinus tachycardia with ST depressions and T wave inversions in the lateral leads. HS trop 5.9. Patient was given potassium replacement, p.o. lorazepam, IVF. Admission Exam Per Admitting Provider Constitutional: WD/WN, vitals as above Eyes: PERRL, conjunctivae normal, anicteric sclerae ENMT: external ear and nose normal, oropharynx normal Respiratory: normal respiratory effort, lungs clear to auscultation Cardiovascular: Rate/Rhythm: regular rhythm and + tachycardic Vessels: normal peripheral pulses Extremities: no edema Gastrointestinal (Abdomen): normal bowel sounds, soft, nontender, no hepatosplenomegaly Musculoskeletal: no cyanosis or clubbing, extremities motor strength 5/5 Skin: no rashes, warm and dry Neurologic: PERRL, EOMI, accommodation nl, no face palsy, no dysarthria Psychiatric: Orientation: alert and oriented x 3 Affect: + depressed affect Principal Diagnosis Suicidal ideation Anxiety Depression Hypokalemia and tachycardia Discharge Exam GENERAL: Alert and oriented x3. NAD, on RA. HEENT: No pallor, no icterus. Pupils equal, round and reactive to light. Oral mucosa moist. NECK: No JVD, no neck masses. HEART: S1 and S2 heard. Regular rate and rhythm. No murmur, no gallop. RESPIRATORY SYSTEM: Normal AP diameter. No accessory muscle use. No wheezing, no crackles. ABDOMEN: Soft, bowel sounds present, nontender, no distention. CENTRAL NERVOUS SYSTEM: No facial droop. Speech is clear. Obeys simple commands. Moves extremities. EXTREMITIES: No edema, no erythema seen. Discharge Data Allergies Allergy/AdvReac Type Severity Reaction Status Date / Time No Known Allergies Allergy Verified 03/09/22 10:35 Consultations 03/09/22 14:13 ED Decision to Admit Stat 03/09/22 15:22 Consult Psychiatry Routine 03/09/22 22:01 Consult Behavioral Health Liaison Routine Hospital Course (1) Hypokalemia: Patient was managed for the following while in hospital: (1) Suicidal ideation: (2) Anxiety: (3) Depression: Plan: Patient presenting from home with reports of feelings of anxiety, depression for 2 weeks with suicidal ideations overnight prior to arrival without plan or attempt. Patient taking BuSpar 15 mg TID, trazodone 100 mg HS. Restarted an old prescription of fluoxetine 40 mg the day before arrival. Psychiatry evaluated, recommended BuSpar 10 mg 3 times a day, continue home dose of trazodone, hold fluoxetine Suicide precaution, one-to-one observation. Patient is medically clear for discharge to psychiatry [facility], discussed with psychiatry. (4) Hypokalemia: Plan: K+ 2.8 Etiology unclear however patient does report a poor appetite over the past couple of weeks Improved, recommend monitoring in 3 to 5 days upon discharge. (5) Tachycardia: (6) Acute electrocardiogram changes: Plan: Patient was on telemetry, had been in sinus, repeat EKG normal, patient without any chest pain or discomfort. Troponin trends were normal, echo with 60-65 ejection fraction, grade 1 diastolic dysfunction. Patient being discharged to inpatient psychiatric admission with following instruction: You are being discharged to psychiatry [facility] for inpatient psychiatric admission. Your potassium level were repleted and normal, your heart enzymes trended were normal, your repeat EKG were normal, your echo were fairly normal. You need to get your blood work BMP done in 5 to 7 days. For your high blood pressure, you have been started on losartan. You will need to continue to follow-up with your PCP as an outpatient for your evaluation and management of hypertension. You need to follow-up with your primary care physician and psychiatry once discharged from psychiatric [facility]. Total Time Total Time Spent Total Time Spent (In Minutes): 35 Discharge Plan Discharge Items Patient Disposition: Transfer Behavioral Health Fac Reason For Visit: PALPITATIONS,ANXIETY Discharge Diagnosis: Suicidal ideation Anxiety Depression Hypokalemia and tachycardia Activity: Resume your previous activity Non-emergency contact: Primary Care Provider Call non-emergency contact if: you have any medication questions Follow-up/Referrals: Ai Pina PA-C [Primary Care Provider] - Diet: Regular Addtl Attending Provider Instructions: You are being discharged to psychiatry [facility] for inpatient psychiatric admission. Your potassium level were repleted and normal, your heart enzymes trended were normal, your EKG were normal, your echo were fairly normal. You need to get your blood work BMP done in 5 to 7 days. For your high blood pressure, you have been started on losartan. You will need to continue to follow-up with your PCP as an outpatient for your evaluation and management of hypertension. You need to follow-up with your primary care physician and psychiatry once discharged from psychiatric [facility]. Pending Studies at Discharge: No Stand-Alone Forms: My [facility] Medications and DC Order Prescriptions: New losartan 25 mg Tablet 25 mg PO QAM Qty: 30 RF: 0 Continued trazodone 100 mg tablet 100 mg PO HS RF: 0 Changed buspirone 15 mg Tablet 10 mg PO TID Qty: 0 RF: 0 Discontinued fluoxetine 40 mg capsule 40 mg PO QAM Qty: 30 RF: 0 Discharge Orders: Discharge Order (Routine); Ordered 03/10/22 Ordered By: Megan Hampton Admission Data Admit Date/Time: 03/09/22 14:34 Attending Provider: Megan Hampton Admit Provider: Megan Hampton Primary Care Provider: Ai Pina Other Providers: Megan Hampton ; Vanita Ware ; Vikki John ; Maria G Escudero
--- NOTE | 2022-03-10 16:25 | Electrocardiogram Report ---
Test Reason : Blood Pressure : / mmHG Vent. Rate : 071 BPM Atrial Rate : 071 BPM P-R Int : 162 ms QRS Dur : 074 ms QT Int : 402 ms P-R-T Axes : 053 000 020 degrees QTc Int : 436 ms Normal sinus rhythm Normal ECG When compared with ECG of 09-MAR-2022 20:13, Nonspecific T wave abnormality no longer evident in Anterior leads Confirmed by Saul Price ([id number]) on 03/10/2022 4:25:20 PM Referred By: REFERRED SELF Confirmed By:Saul Price
== END 2022-03-10 17:02 ==
LOC: EDINP 09:22 → ED 09:22 → 2W 15:22

== ENCOUNTER 2022-03-10 16:44 | Inpatient (IN) ==
[2022-03-10] MEDS ORDERED: MAGNESIUM HYDROXIDE SUSP 30 ML UDC PO PRN (17:30)
[2022-03-10] MEDS ORDERED: ACETAMINOPHEN 325 MG TAB PO PRN (17:30)
[2022-03-10] MEDS ORDERED: hydrOXYzine HCl 25 MG TAB PO PRN ×2 (17:30)
[2022-03-10] MEDS ORDERED: SODIUM CHLORIDE 0.65% NA SOLN 45 ML (OCEAN) PRN (17:30)
[2022-03-10] MEDS ORDERED: ALUMINUM/MAGNESIUM SUSP 30 ML UDC PO PRN (17:30)
[2022-03-10] MEDS ORDERED: BISMUTH SUBSALICYLATE LIQD 236 ML PO PRN (17:30)
[2022-03-10] MEDS ORDERED: traZODone HCL 50 MG TAB PO PRN (17:36)
[2022-03-10] MEDS: busPIRone 5 MG TAB PO SCH (18:02)
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
[2022-03-10] MEDS: MIRTAZAPINE TAB 15 MG TAB PO SCH (22:16)
[2022-03-11] MEDS: busPIRone 5 MG TAB PO SCH ×2 (08:42→17:21)
[2022-03-11] MEDS: LOSARTAN POTASSIUM 25 MG TAB PO SCH (08:43)
--- NOTE | 2022-03-11 16:06 | Psychiatric Progress Note ---
Date of Service March 11, 2022 Impression / Recommendations Impression 62 yo female with a significant history of alcohol abuse, prior inpatient stay for suicide attempt, has been struggling with increase in anxiety since becoming sober 8 months ago and presented to ED requesting inpatient psych admission. She has some possible psychotic features to her depression which were present before. Presentation is most consistent with recurrent major depression with psychotic features. Cannot exclude bipolar variant. ETOH use disorder in remission. Although she is not suicidal she is having difficulty functioning, not taking her medication correctly which likely contributed to medical admission and is high risk of ETOH relapse due to severe anxiety. She is having psychotic features and engaging in superficial SIB by picking her face. (1) Depression: (2) Anxiety: 03/11/22: can likely d/c MNPR after 24 hr on unit as does not appear to be responding to internal stimuli and paranoia is generally toward family. Cream for roseacea to discourage picking. states can't take oral antibiotics for it as causes yeast infection. Continue Remeron trial. 03/10/22: The patient was admitted to the [facility] ([facility] mental health unit) on q15 min checks (behavioral with suicide precautions) for safety. The patient will participate in group, recreational, and milieu therapies and will be offered additional individual and family sessions as clinically appropriate. Buspar dose had been descreased on the med floor. Prozac remains discontinued. Risks/benefits/alternatives reviewed re: Remeron trial. Patient agrees to begin Remeron 15 mg this hs. Will move trazodone to lower dose prn given risks of combined sedation. Suicide Risk Level Suicide Risk Level: Moderate (q15 min suicide checks) Risk Factors Assessment : Yes Mental Health Diagnoses: Yes Previous Attempt: Yes Previous Psychiatric Hospitalization: Yes Protective Factors Assessment : Yes Stable Relationships: Yes Interval History Identifying Information BEAR SANDHU is a 62-year-old F who currently lives in [place] who was admitted transfer from the medical floor on 03/10/22 17:29 on a 201 voluntary commitment for severe anxiety and inability to function at home. Chief Complaint "I don't feel that way right now but I do think they were laughing at me". (referring to ) Review of Systems Sleep Information Total Hours of Sleep: 6.5 Meal Information Percent Meal Consumed - Breakfast: 50 Percent Meal Consumed - Lunch: 50 Subjective Subjective Patient was seen & assessed and interval progress reviewed with treatment team. Patient's BP improved this am after medication. Attended groups last pm. Was caught picking at her face when I entered room. Sleep much improved last pm. She did not sign an SOFIA for , states that her family didn't support her as she achieved sobriety and has put beer in their car. Seems to have difficulty describing the context. Said she heard his voice laughing while she looked for him on the porch. Physical Exam Psychiatric Orientation: alert Apperance: appropriately dressed Eye Contact: good eye contact Motor Behavior: no abnormal motor movements Speech: normal rate/rhythm/volume of speech Affect: + depressed affect Mood: + depressed mood Thought Process: + concrete thought process Thought Content: + paranoid Suicidal Thoughts: denies suicidal thoughts Homicidal Thoughts: denies homicidal thoughts Hallucinations: no auditory hallucinations and no visual hallucinations Cognition: language grossly intact; + attention not intact Estimated Intelligence: consistent with education level Insight: + limited insight Judgement: + limited judgement Vital Signs (Past 24 Hours) Last Vital Signs Temp 36.8 C 03/11/22 06:37 Pulse 93 H 03/11/22 10:43 Resp 16 03/11/22 06:37 BP 135/89 03/11/22 10:43 Pulse Ox 99 03/10/22 17:32 Results & Data ([facility]) Current Inpatient Medications Current Inpatient Medications: Current Inpatient Medications Acetaminophen (Acetaminophen 325 Mg Tab) 650 mg PO Q4H PRN PRN Reason: Headache or Minor Fever Stop: 04/09/22 17:29 Al Hydrox/Mg Hydrox/Simethicone (Aluminum/Magnesium Susp 30 Ml Udc) 30 ml PO Q4H PRN PRN Reason: GI Upset Stop: 04/09/22 17:29 Bismuth Subsalicylate (Bismuth Subsalicylate Liqd 236 Ml) 15 ml PO PRN PRN PRN Reason: Loose Stool Stop: 04/09/22 17:29 Buspirone HCl (Buspirone 5 Mg Tab) 10 mg PO BIDM HONORIO Stop: 04/09/22 17:44 Last Admin: 03/11/22 08:42 Dose: 10 mg Documented by: Hydroxyzine HCl (Hydroxyzine Hcl 25 Mg Tab) 25 mg PO Q4H PRN PRN Reason: Anxiety Stop: 04/09/22 17:29 Losartan Potassium (Losartan Potassium 25 Mg Tab) 25 mg PO QAM HONORIO Stop: 04/10/22 08:59 Last Admin: 03/11/22 08:43 Dose: 25 mg Documented by: Magnesium Hydroxide (Magnesium Hydroxide Susp 30 Ml Udc) 30 ml PO DAILY PRN PRN Reason: Constipation Stop: 04/09/22 17:29 Mirtazapine (Mirtazapine Tab 15 Mg Tab) 15 mg PO HS HONORIO Stop: 04/09/22 21:59 Last Admin: 03/10/22 22:16 Dose: 15 mg Documented by: Sodium Chloride (Sodium Chloride 0.65% Na Soln 45 Ml ([place])) 1 - 2 sprays NA PRN PRN PRN Reason: Nasal Dryness/Congestion Stop: 04/09/22 17:29 Trazodone HCl (Trazodone Hcl 50 Mg Tab) 50 mg PO HS PRN PRN Reason: Insomnia Stop: 04/09/22 21:59 Post Discharge Appointments Primary Care Physician Name Of Family Doctor: Gricelda Mandel (1) Depression Depression Type: unspecified Qualified Code(s): F32.A - Depression, unspecified
[2022-03-11] MEDS: MIRTAZAPINE TAB 15 MG TAB PO SCH (20:52)
--- NOTE | 2022-03-12 09:08 | Psychiatric Progress Note ---
Date of Service March 12, 2022 Impression / Recommendations Impression 62 yo female with a significant history of alcohol abuse, prior inpatient stay for suicide attempt, has been struggling with increase in anxiety since becoming sober 8 months ago and presented to ED requesting inpatient psych admission. She has some possible psychotic features to her depression which were present before. Presentation is most consistent with recurrent major depression with psychotic features. Cannot exclude bipolar variant. ETOH use disorder in remission. Although she is not suicidal she is having difficulty functioning, not taking her medication correctly which likely contributed to medical admission and is high risk of ETOH relapse due to severe anxiety. She was having psychotic features and engaging in superficial SIB by picking her face. 03/12/22: improving, d/c MNPR (1) Depression: (2) Anxiety: 03/12/22: continue current meds and treatment plan, she is now admitting to taking even more Buspar than previous and her old medications will need to be destroyed/removed by prior to her return home. 03/11/22: can likely d/c MNPR after 24 hr on unit as does not appear to be responding to internal stimuli and paranoia is generally toward family. Cream for roseacea to discourage picking. states can't take oral antibiotics for it as causes yeast infection. Continue Remeron trial. 03/10/22: [facility] unit) on q15 min checks (behavioral with suicide precautions) for safety. The patient will participate in group, recreational, and milieu therapies and will be offered additional individual and family sessions as clinically appropriate. Buspar dose had been descreased on the med floor. Prozac remains discontinued. Risks/benefits/alternatives reviewed re: Remeron trial. Patient agrees to begin Remeron 15 mg this hs. Will move trazodone to lower dose prn given risks of combined sedation. Suicide Risk Level Suicide Risk Level: Moderate (q15 min suicide checks) Risk Factors Assessment : Yes Mental Health Diagnoses: Yes Previous Attempt: Yes Previous Psychiatric Hospitalization: Yes Protective Factors Assessment : Yes Stable Relationships: Yes Interval History Identifying Information BEAR SANDHU is a 62-year-old F who currently lives in [place] who was admitted transfer from the medical floor on 03/10/22 17:29 on a 201 voluntary commitment for severe anxiety and inability to function at home. Chief Complaint "I feel a bit flat". Review of Systems Sleep Information Total Hours of Sleep: 7.25 Sleep Comments: pt on q-15 minute checks Meal Information Percent Meal Consumed - Breakfast: 50 Percent Meal Consumed - Lunch: 50 Percent Meal Consumed - Dinner: 100 Subjective Subjective Patient was seen & assessed and interval progress reviewed with nursing and social work. Rates mood as a 5. Still rather non specific about her marital issues, states "yeah I'll go home as I don't have a choice". Physical Exam Psychiatric Orientation: alert Apperance: appropriately dressed Eye Contact: good eye contact Motor Behavior: no abnormal motor movements Speech: normal rate/rhythm/volume of speech Affect: + constricted affect Mood: + depressed mood Thought Process: + concrete thought process Thought Content: not paranoid Suicidal Thoughts: denies suicidal thoughts Homicidal Thoughts: denies homicidal thoughts Hallucinations: no auditory hallucinations and no visual hallucinations Cognition: attention grossly intact and language grossly intact Estimated Intelligence: consistent with education level Insight: + limited insight Judgement: + limited judgement Vital Signs (Past 24 Hours) Last Vital Signs Temp 36.9 C 03/12/22 06:42 Pulse 106 H 03/12/22 06:43 Resp 16 03/12/22 06:42 BP 138/88 03/12/22 06:43 Pulse Ox 99 03/10/22 17:32 Results & Data ([facility]) Current Inpatient Medications Current Inpatient Medications: Current Inpatient Medications Acetaminophen (Acetaminophen 325 Mg Tab) 650 mg PO Q4H PRN PRN Reason: Headache or Minor Fever Stop: 04/09/22 17:29 Al Hydrox/Mg Hydrox/Simethicone (Aluminum/Magnesium Susp 30 Ml Udc) 30 ml PO Q4H PRN PRN Reason: GI Upset Stop: 04/09/22 17:29 Bismuth Subsalicylate (Bismuth Subsalicylate Liqd 236 Ml) 15 ml PO PRN PRN PRN Reason: Loose Stool Stop: 04/09/22 17:29 Buspirone HCl (Buspirone 5 Mg Tab) 10 mg PO BIDM HONORIO Stop: 04/09/22 17:44 Last Admin: 03/11/22 17:21 Dose: 10 mg Documented by: Hydroxyzine HCl (Hydroxyzine Hcl 25 Mg Tab) 25 mg PO Q4H PRN PRN Reason: Anxiety Stop: 04/09/22 17:29 Losartan Potassium (Losartan Potassium 25 Mg Tab) 25 mg PO QAM HONORIO Stop: 04/10/22 08:59 Last Admin: 03/11/22 08:43 Dose: 25 mg Documented by: Magnesium Hydroxide (Magnesium Hydroxide Susp 30 Ml Udc) 30 ml PO DAILY PRN PRN Reason: Constipation Stop: 04/09/22 17:29 Metronidazole (Metronidazole 0.75% Topical Gel 45 Gm Tube) 1 appln TOP DAILY HONORIO Stop: 03/22/22 08:59 Mirtazapine (Mirtazapine Tab 15 Mg Tab) 15 mg PO HS HONORIO Stop: 04/09/22 21:59 Last Admin: 03/11/22 20:52 Dose: 15 mg Documented by: Sodium Chloride (Sodium Chloride 0.65% Na Soln 45 Ml ([place])) 1 - 2 sprays NA PRN PRN PRN Reason: Nasal Dryness/Congestion Stop: 04/09/22 17:29 Trazodone HCl (Trazodone Hcl 50 Mg Tab) 50 mg PO HS PRN PRN Reason: Insomnia Stop: 04/09/22 21:59 Post Discharge Appointments Primary Care Physician Name Of Family Doctor: Gricelda Mandel (1) Depression Depression Type: unspecified Qualified Code(s): F32.A - Depression, unspecified
[2022-03-12] MEDS: busPIRone 5 MG TAB PO SCH ×2 (09:30→18:12)
[2022-03-12] MEDS: LOSARTAN POTASSIUM 25 MG TAB PO SCH (09:30)
[2022-03-12] MEDS: metroNIDAZOLE 0.75% TOPICAL GEL 45 GM TUBE TOP SCH (09:32)
[2022-03-12] MEDS: MIRTAZAPINE TAB 15 MG TAB PO SCH (21:06)
[2022-03-13] MEDS: LOSARTAN POTASSIUM 25 MG TAB PO SCH (08:22)
[2022-03-13] MEDS: metroNIDAZOLE 0.75% TOPICAL GEL 45 GM TUBE TOP SCH (08:23)
[2022-03-13] MEDS: busPIRone 5 MG TAB PO SCH ×2 (08:23→17:01)
--- NOTE | 2022-03-13 13:47 | Psychiatric Progress Note ---
Date of Service March 13, 2022 Impression / Recommendations Impression 62 yo female with a significant history of alcohol abuse, prior inpatient stay for suicide attempt, has been struggling with increase in anxiety since becoming sober 8 months ago and presented to ED requesting inpatient psych admission. She has some possible psychotic features to her depression which were present before. Presentation is most consistent with recurrent major depression with psychotic features. Cannot exclude bipolar variant. ETOH use disorder in remission. Although she is not suicidal she is having difficulty functioning, not taking her medication correctly which likely contributed to medical admission and is high risk of ETOH relapse due to severe anxiety. She was having psychotic features and engaging in superficial SIB by picking her face. 03/13/22: remains flat, attempt to engage family more in care (1) Depression: (2) Anxiety: 03/13/22: safety planning 03/12/22: continue current meds and treatment plan, she is now admitting to taking even more Buspar than previous and her old medications will need to be destroyed/removed by prior to her return home. 03/11/22: can likely d/c MNPR after 24 hr on unit as does not appear to be res ponding to internal stimuli and paranoia is generally toward family. Cream for roseacea to discourage picking. states can't take oral antibiotics for it as causes yeast infection. Continue Remeron trial. 03/10/22: The patient was [facility] mental health unit) on q15 min checks (behavioral with suicide precautions) for safety. The patient will participate in group, recreational, and milieu therapies and will be offered additional individual and family sessions as clinically appropriate. Buspar dose had been descreased on the med floor. Prozac remains discontinued. Risks/benefits/alternatives reviewed re: Remeron trial. Patient agrees to begin Remeron 15 mg this hs. Will move trazodone to lower dose prn given risks of combined sedation. Suicide Risk Level Suicide Risk Level: Moderate (q15 min suicide checks) Risk Factors Assessment : Yes Mental Health Diagnoses: Yes Previous Attempt: Yes Previous Psychiatric Hospitalization: Yes Protective Factors Assessment : Yes Stable Relationships: Yes Interval History Identifying Information BEAR SANDHU is a 62-year-old F who currently lives in [place] who was admitted transfer from the medical floor on 03/10/22 17:29 on a 201 voluntary commitment for severe anxiety and inability to function at home. Chief Complaint "I thought I was leaving now" Review of Systems Sleep Information Total Hours of Sleep: 7 Sleep Comments: pt on q-15 minute checks Meal Information Percent Meal Consumed - Breakfast: 100 Percent Meal Consumed - Lunch: 90 Percent Meal Consumed - Dinner: 95 Subjective Subjective Patient was seen & assessed and interval progress reviewed with treatment team. Patient is behaviorally appropriate but flat in the milieu. somewhat resistant to a phone session with her . Staff working with to secure meds upon return home. She denies any specific complaint. Physical Exam Psychiatric Orientation: alert Apperance: appropriately dressed Eye Contact: good eye contact Motor Behavior: no abnormal motor movements Speech: normal rate/rhythm/volume of speech Affect: + constricted affect Mood: + depressed mood Thought Process: + concrete thought process Thought Content: not paranoid Suicidal Thoughts: denies suicidal thoughts Homicidal Thoughts: denies homicidal thoughts Hallucinations: no auditory hallucinations and no visual hallucinations Cognition: attention grossly intact and language grossly intact Estimated Intelligence: consistent with education level Insight: + limited insight Judgement: + limited judgement Vital Signs (Past 24 Hours) Last Vital Signs Temp 36.9 C 03/13/22 06:00 Pulse 80 03/13/22 06:00 Resp 18 03/13/22 06:00 BP 126/85 03/13/22 06:00 Pulse Ox 99 03/10/22 17:32 Results & Data ([facility]) Current Inpatient Medications Current Inpatient Medications: Current Inpatient Medications Acetaminophen (Acetaminophen 325 Mg Tab) 650 mg PO Q4H PRN PRN Reason: Headache or Minor Fever Stop: 04/09/22 17:29 Al Hydrox/Mg Hydrox/Simethicone (Aluminum/Magnesium Susp 30 Ml Udc) 30 ml PO Q4H PRN PRN Reason: GI Upset Stop: 04/09/22 17:29 Bismuth Subsalicylate (Bismuth Subsalicylate Liqd 236 Ml) 15 ml PO PRN PRN PRN Reason: Loose Stool Stop: 04/09/22 17:29 Buspirone HCl (Buspirone 5 Mg Tab) 10 mg PO BIDM HONORIO Stop: 04/09/22 17:44 Last Admin: 03/13/22 08:23 Dose: 10 mg Documented by: Hydroxyzine HCl (Hydroxyzine Hcl 25 Mg Tab) 25 mg PO Q4H PRN PRN Reason: Anxiety Stop: 04/09/22 17:29 Losartan Potassium (Losartan Potassium 25 Mg Tab) 25 mg PO QAM HONORIO Stop: 04/10/22 08:59 Last Admin: 03/13/22 08:22 Dose: 25 mg Documented by: Magnesium Hydroxide (Magnesium Hydroxide Susp 30 Ml Udc) 30 ml PO DAILY PRN PRN Reason: Constipation Stop: 04/09/22 17:29 Metronidazole (Metronidazole 0.75% Topical Gel 45 Gm Tube) 1 appln TOP DAILY HONORIO Stop: 03/22/22 08:59 Last Admin: 03/13/22 08:23 Dose: 1 appln Documented by: Mirtazapine (Mirtazapine Tab 15 Mg Tab) 15 mg PO HS HONORIO Stop: 04/09/22 21:59 Last Admin: 03/12/22 21:06 Dose: 15 mg Documented by: Sodium Chloride (Sodium Chloride 0.65% Na Soln 45 Ml (Jerauld)) 1 - 2 sprays NA PRN PRN PRN Reason: Nasal Dryness/Congestion Stop: 04/09/22 17:29 Trazodone HCl (Trazodone Hcl 50 Mg Tab) 50 mg PO HS PRN PRN Reason: Insomnia Stop: 04/09/22 21:59 Mental Health & Subst Abuse Tx Psychiatrist Name of Psychiatrist: Ulises Rivera Psychiatrist's Date of Appointment with Psychiatrist: 03/30/22 Time of Appointment with Psychiatrist: 10:15am Psychiatric Appointment Comment: [address] [place] [address] Therapist Name of Therapist: Anderson Schmitt Therapist's Date of Therapist Appointment: 03/25/22 Time of Therapist Appointment: 9:30am Therapy Appointment [facility]: [address] [place], [place] Post Discharge Appointments Primary Care Physician Name Of Family Doctor: Adrianne Pina Primary Care Date of Appointment with PCP: 03/20/22 Time of Appointment with PCP: arrive 11:05a.m for 11:20am appt. Provider Appointment Comment: [address] [facility] [place] [address] Contact Information Discharge Discharge Address: [facility] [place] [address] (1) Depression Depression Type: unspecified Qualified Code(s): F32.A - Depression, unspecified
[2022-03-13] MEDS: MIRTAZAPINE TAB 15 MG TAB PO SCH (20:49)
[2022-03-14] MEDS: LOSARTAN POTASSIUM 25 MG TAB PO SCH (08:03)
[2022-03-14] MEDS: busPIRone 5 MG TAB PO SCH (08:03)
[2022-03-14] MEDS: metroNIDAZOLE 0.75% TOPICAL GEL 45 GM TUBE TOP SCH (08:04)
--- NOTE | 2022-03-14 10:06 | Discharge Summary ---
Date of Service March 14, 2022 History of Present Illness Patient was seen earlier today on consultation service (see below). She was cooperative on transfer to the unit. Today the patient admits that her anxiety has been severe and she was taking more Buspar than prescribed, sometime 30 mg at a dose. She had stopped Prozac on her own as felt she was doing better (neither she nor her can recall when) and she restarted 40 mg yesterday after which she felt even more anxiety and came to ED. She minimized any paranoia or loaiza at home but also seemed internally preoccupied and checked behind her. Easily distracted by nursing. Her face remains red from rosacea with excoriated areas. She verbalized sobriety being important but also hopeless that stopped drinking to "feel like this." Per liaison last pm:Met with pt for initial consultation. Consulted for anxiety. Pt alert and oriented x4. Pleasant and cooperative during interview. Pt reports she has had increasing depression and anxiety over the last several weeks. Pt stated she has also been having increasing paranoia feeling like her family is talking about her. She also describes having some ideas of reference. She states when her is watching you tube videos, it is somehow related to her. She stated he watches people catching snakes and starts to become extremely anxious while he is watching them. She also stated "I know this is going to sound weird, but my appliances are talking to me." When asked to elaborate, she states she can hear a "moaning" sound when her furnace starts. She reports becoming acutely suicidal this morning. She states "I wouldn't have done anything though. I don't have a gun or anything." When asked about making statements of overdosing, she did admit to making those statements previously. She stated she took an old prescription of her Prozac 40mg this morning. She is currently prescribed Buspar 15mg po tid along with Trazodone 100mg po qhs. She states she is compliant with these medications. Past med trials include Lexapro, Seroquel, Abilify, Wellbutrin and Xanax. She is currently denying any active SI. She is agreeable to medications changes/recommendations and also agreeable to inpatient psychiatric hospitalization. Explained to pt medical clearance and bed search would be conducted if [facility] did not have beds at time of medical clearance. Past SA in 2019 by overdose on Seroquel requiring inpt at [facility]. Pt had two psych hospitalizations in 2019. Also hospitalized in [place] in 2005. Only stressors pt reports is recent family conflict with her daughter on mother's day. She stated, "she brought me over something for mother's day and I didn't like it. It wasn't right at all." Pt did not elaborate. She reports they have not spoken since. She denies any outpatient providers other than [facility]. She denies current therapist but states she previously saw someone thru [facility]. She reports a long hx of alcohol dependence but she has been sober for approximately 7 months. Reports she used to drink vodka, whiskey and hard lemonade totalling an average of 10 drinks per day. States she stopped on her own and did not attend rehab. She denies any involvement in AA. PHQ9=16. Question #9=1. Physical Exam Vital Signs (Past 24 Hours) Last Vital Signs Temp 36.9 C 03/14/22 06:21 Pulse 112 H 03/14/22 06:22 Resp 18 03/14/22 06:21 BP 166/106 H 03/14/22 06:22 Pulse Ox 99 03/10/22 17:32 See admission H&P and DOD summary. Principal Diagnosis Major Depressive Disorder Psychiatric Data See daily stay summary. In short, patient was engaged with the social/therapeutic milieu of the unit, safety was maintained and the patient was cooperative with care. Medication changes included discontinuation of fluoxetine, titration of buspirone and initiation of mirtazapine and they t olerated this well. If paranoia or symptoms of psychosis return would consider augmentation with an antipsychotic such as low dose olanzapine 2.5mg or 5 mg qhs or risperidone 0.25mg BID or 0.5 mg BID. A family session was held and safety plan was completed prior to discharge. Leading up to discharge she denied SI and denied any symptoms of paranoia nor auditory hallucinations. She actively and insightfully participated in safety planning and in discussions about ways to seek support and recognizing warning signs and utilizing coping skills. Reviewed importance of seeking emergency care should SI intensify, worsen or should they feel unsafe in the future which they agree to do. On the day of discharge she stated her mood was "good" and remained future-oriented including looking into getting a job, relaxing at home and engaging in aftercare appointments for psychiatry and therapy. Her brought in her old medications which were sent for safe disposal/destroyed prior to discharge. Day of Discharge Assessment Today the patient voices readiness for discharge. They note improvement in mood and anxiety. They deny thoughts of harm to self or others. Thoughts are organized and they are clinically improved from admission. There is no evidence of psychosis. They improved in the hospital with support and medication adjustments. They agree to take medications as prescribed and keep follow-up appointments. At the time of the discharge they are deemed to be stable and appropriate for outpatient level of care. They are not deemed to be at imminent risk of harm to self or others. They are aware of emergency and crisis services. Knows to call 911 or go to nearest emergency care center if in a crisis which cannot be handled as an outpatient. Transition of Care Transition Of Care Record: was reviewed with the patient Advance Directives Advance Directives Information Provided: Yes Advance Directives: No Mental Health Advance Directive: No Advance Directives on File: No Living Will: No Power of In Classroom Tutor: No Advance Directives Reason:: Declines as Mental Health Visit. Suicide Risk Level Suicide Risk Level Comments: Acute risk is low given improvement in mood and denial of SI, lack of access to lethal means, improvement in sleep, hopefulness ,improvement in psychosis. Chronic risk is low to moderate given psychiatric co-morbid diagnoses, prior attempt , self-harm via skin picking, prior psychiatric hospitalizations ,poor social support ,mood disorder but also with protective factors. Counseled on ways to reduce acute and chronic risk including engaging with outpatient prov iders, using safety plan if needed, utilizing supports, taking medication, and using coping skills. Modifiable risk factors of SI, paranoia and depression were addressed during hospitalization through development of new coping skills, family meeting, safety planning, and medication adjustments. Risk Factors Assessment : Yes Mental Health Diagnoses: Yes Previous Attempt: Yes Previous Psychiatric Hospitalization: Yes Hopelessness: No Protective Factors Assessment : Yes Employed: No Stable Relationships: Yes Supportive Family: Yes Tobacco Cessation at Discharge Tobacco Cessation Medication Prescribed at Discharge: Not Applicable/Non-Smoker Hospital Course (1) Depression: (2) Anxiety: 03/13/22: safety planning 03/12/22: continue current meds and treatment plan, she is now admitting to taking even more Buspar than previous and her old medications will need to be destroyed/removed by prior to her return home. 03/11/22: can likely d/c MNPR after 24 hr on unit as does not appear to be responding to internal stimuli and paranoia is generally toward family. Cream for roseacea to discourage picking. states can't take oral antibiotics for it as causes yeast infection. Continue Remeron trial. 03/10/22: [facility] on q15 min checks (behavioral with suicide precautions) for safety. The patient will participate in group, recreational, and milieu therapies and will be offered additional individual and family sessions as clinically appropriate. Buspar dose had been descreased on the med floor. Prozac remains discontinued. Risks/benefits/alternatives reviewed re: Remeron trial. Patient agrees to begin Remeron 15 mg this hs. Will move trazodone to lower dose prn given risks of combined sedation. Mental Health & Subst Abuse Tx Psychiatrist Name of Psychiatrist: Ulises [facility] Psychiatrist's Date of Appointment with Psychiatrist: 03/30/22 Time of Appointment with Psychiatrist: 10:15am Psychiatric Appointment Comment: [facility] [address] [place] [address] Therapist Name of Therapist: Anderson Schmitt Therapist's Date of Therapist Appointment: 03/25/22 Time of Therapist Appointment: 9:30am Therapy Appointment Comment: [address] [place], [place] Post Discharge Appointments Primary Care Physician Name Of Family Doctor: Adrianne Pina Primary Care Date of Appointment with PCP: 03/20/22 Time of Appointment with PCP: arrive 11:05a.m for 11:20am appt. Provider Appointment Comment: [address] [facility] [place] [address] Smoking Cessation Counseling Tobacco Cessation Medication Prescribed at Discharge: Not Applicable/Non-Smoker Contact Information Discharge Discharge [address] [address] [place], [place] [address] [address] Discharge Plan Discharge Items Patient Disposition: Home - Self-Care Reason For Visit: MDD Discharge Diagnosis: Major Depressive Disorder Activity: Resume your previous activity Non-emergency contact: Primary Care Provider, Psychiatrist and Therapist Call non-emergency contact if: you have any medication questions and your symptoms worsen Follow-up/Referrals: Ai Pina PA-C [Primary Care Provider] - Diet: Regular Addtl Attending Provider Instructions: SPECIAL CARE INSTRUCTIONS: 1. Follow through with your scheduled aftercare appointments. If unable to keep an appointment, please call to reschedule. 2. Take your medication only as prescribed. Medication should not be changed or stopped without the approval of your doctor. In the event of worsening symptoms or concerns about side effects, contact your doctor immediately. 3. Utilize new healthy coping skills, anger management skills, and stress management skills learned during your hospitalization. Journal feelings and process them with a support person. Identify stressors or situations that may result in relapse, deterioration or inappropriate behaviors and develop a plan to deal with those issues. 4. If your coping skills are ineffective and you are in crisis, contact your outpatient providers for direction. If unable to reach your providers, please call the [facility] CRISIS LINE AT , go to the [facility] walk-in center at [address], [address], [place], or go to the closest Emergency Room. 5. Avoid alcohol and un-prescribed drugs. 6. You have been provided with the Mental Health Advance Directives Pamphlet for your review. 7. Your condition is stable for discharge to outpatient level of care, but recovery is an ongoing process. Ifthoughts to harm yourself or others return, follow the safety plan developed during your stay. Planning for a safe return home includes securing weapons. Our treatment team recommends weaponsbe removed from the home until your outpatient provider reassesses your progress. In rare cases where the items themselvescannot be removed, guns and ammunitionshould be secured separatelyand keys stored by a reliable personoutside of the home. If you were admitted on an involuntary commitment, the police or other legal authorities may be involved in this process. AFTERCARE APPOINTMENTS: * Please call your insurance company prior to your scheduled appointment to confirm your aftercare providers are covered. Take your insurance information to your appointments. WHO TO CALL AND WHEN: Medical Emergencies: For questions or emergencies related to your hospital stay, please contact the Inpatient Behavioral Health Unit at [phone]. A mold cooler is on-call 12/04 for the Behavioral Health Unit for emergencies At any time you feel your situation is an emergency, you may also call 911 immediately. Pending Studies at Discharge: No Stand-Alone Forms: My [facility] Medications and DC Order Prescriptions: New losartan 25 mg Tablet 25 mg PO QAM 30 Days Qty: 30 RF: 0 buspirone 10 mg tablet 10 mg PO BIDM 30 Days Qty: 60 RF: 0 hydroxyzine HCl 25 mg Tablet 25 mg PO DAILY PRN (Reason: ELIJAH with panic attacks) Qty: 7 RF: 0 mirtazapine 15 mg Tablet 15 mg PO HS 30 Days Qty: 30 RF: 0 metronidazole 0.75 % Gel 1 applic topical DAILY 30 Days Qty: 45 RF: 0 Discontinued trazodone 100 mg tablet 100 mg PO HS RF: 0 losartan 25 mg Tablet 25 mg PO QAM Qty: 30 RF: 0 buspirone 15 mg Tablet 10 mg PO TID Qty: 0 RF: 0 Discharge Orders: Discharge Order (Routine); Ordered 03/14/22 Ordered By: Vanita Crisostomo/Other Patient Handouts: Suicide Warning Signs What To Do Admission Data Admit Date/Time: 03/10/22 17:29 Attending Provider: Vikki John Admit Provider: Vikki John Primary Care Provider: Ai Pina Other Interventions: Discharge Summary Assessment (RN) Last Done: 03/14/22 10:36 Coding Level of Care Code 46824 D/C day mgmt > 30 min Diagnoses Depression F32.A Depression Type: unspecified Anxiety F41.9 Time Spent (min) 40
[2022-03-14] MEDS ORDERED: DESTROY THIS MEDICATION ONE (11:29)
== END 2022-03-14 11:05 | disposition home or self-care (01) | DRG 885 ==
LOC: 3S 16:44

== ENCOUNTER 2022-10-02 15:51 | Inpatient (IN) ==
[2022-10-02] MEDS ORDERED: LORazepam 1 MG TAB PO STA (16:32)
--- NOTE | 2022-10-02 16:35 | Emergency Department Note ---
Impression & Plan Anxiety, Suicidal ideation ED Provider Note HISTORY OF PRESENT ILLNESS: Patient is a 62-year-old female presenting with anxiety and passive suicidal ideation. Patient's helps provide history. Reports that the patient has been increasingly anxious over the last few weeks. She was started on buspirone on 09/22/2022. Patient has reportedly talked about going [place] a long [place] [address] and not coming back. She denies any active SI. Reports feeling very "unsafe" and anxious. Reports that is saying things to her in the evenings that he is not. Denies any auditory or visual hallucinations. ROS: as above PHYSICAL EXAM: Constitutional: Patient appears in no acute distress. HENT: Head: Normocephalic and atraumatic. Eyes: EOMI, PERRL Mouth/Throat: Mucous membranes moist. : Trachea midline. Neck supple. Cardiovascular: Tachycardic. No murmurs, rubs or gallops. Intact distal pulses. Pulmonary/Chest: No respiratory distress. Breath sounds clear and equal bilaterally. No wheezes or rales. No chest wall tenderness to palpation. Abdominal: BS +. Abdomen soft, no tenderness, rebound or guarding. Back: No midline spinal tenderness, no paraspinal tenderness, no CVA tenderness. Musculoskeletal: No edema, tenderness or deformity noted. Skin: Warm and dry. No rash, erythema, pallor or cyanosis Psychiatric: Anxious appearing. Neurological: Alert and keenly responsive. CN II-XII grossly intact, moving all extremities equally and fully. MDM: - Vitals signs showed hypertension and tachycardia. - History obtained via patient and . Patient presents with anxiety and passive suicidal ideation. reports she has been increasingly anxious over the last few weeks. Also making statements about [place] and not coming back. No active SI at this time. She was recently admitted to the inpatient psychiatry unit 6 months ago. - Chronic conditions affecting care: anxiety/depression - Differential diagnoses include, but are not limited to: ACS; depression; electrolyte abnormality; UTI - External medical records reviewed. Patient admitted in February 2022 to inpatient psychiatry unit. - EKG reviewed by myself showed sinus rhythm. Tachycardic with rate 112 bpm. No acute ischemic changes. QTc 417. Normal intervals. - Patient significantly anxious on assessment. Given 1 mg PO ativan, with improvement in HR and anxiousness. - Laboratory workup interpreted by myself showed normal WBC; hypokalemia (K 3.3); negative alcohol - COVID negative. - UA negative for infection. - Patient given 20 mEq PO potassium for electrolyte replacement. - Discussion was had with social media designer about patient's case and need for inpatient psychiatric admission. Patient medically cleared at this point. - Psychiatry consulted by social media designer. - Patient admitted to inpatient psychiatry unit for further evaluation and management. ASSESSMENT AND PLAN: Diagnosis: anxiety; suicidal ideation Plan: admit Past Med/Surg History Medical History Alcohol abuse hx of, sober since 08/2021 Anxiety Depression Surgical History Hx of section Family History Mother Diabetes Other Depression Social History Smoking Status: Never smoker Second Hand Exposure: No; Hx Alcohol Use: Yes Alcohol type: hard liquor Hx Substance Use: No Preferred Language: Dominican Communication Ability: Effective Carpet Installation Specialist Required: No Beliefs That Will Affect Care: None Current Living Situation: Spouse Feels Safe at Home: Yes Gender Identity: Female Assistive Devices: None Allergies Allergies Allergy/AdvReac Type Severity Reaction Status Date / Time No Known Allergies Allergy Verified 03/09/22 10:35 Home Meds Previous Rx's Medication Instructions Recorded hydroxyzine HCl 25 mg tablet 25 mg PO DAILY PRN ELIJAH with panic 03/14/22 attacks #7 tabs Results & Data (ED) Vital Signs Vital Signs - 24 hr 10/02/22 16:04 10/02/22 19:26 Temperature 36.5 C Temperature Source Temporal Artery Scan Pulse Rate 142 H Pulse Rate [Finger] 95 H Pulse Rhythm Regular Pulse Rhythm [Finger] Regular Pulse Strength Normal Pulse Strength [Finger] Normal Respiratory Rate 22 18 Respiratory Effort / Characteristics Non-Labored Spontaneous Non-Labored Respiratory Depth Normal Normal Respiratory Pattern Regular Regular Blood Pressure 151/82 H Blood Pressure [Left Arm] 135/79 Blood Pressure Mean 105 Blood Pressure Mean [Left Arm] 97 Blood Pressure Position Sitting Blood Pressure Position [Left Arm] Sitting Pulse Oximetry 97 98 Oxygen Delivery Method Room Air Room Air Sepsis Recent Fever Within 48 Hours No Sepsis New/Unexplained Change in Mental Status No Sepsis Action Taken by Nursing No Action Required Laboratory Data 10/02/22 16:54 10/02/22 16:54 Lab Results 10/02/22 10/02/22 10/02/22 Range/Units 16:20 16:20 16:54 WBC 6.77 (4.8-10.8) K/ul RBC 4.77 (3.93-5.22) M/uL Hgb 14.3 (12.0-16.0) g/dl Hct 41.1 (34.1-44.9) % MCV 86.2 (80.0-100.0) fL MCH 30.0 (25.0-34.0) pg MCHC 34.8 (32.0-36.0) g/dL RDW Std Deviation 44.5 (36.4-46.3) fL RDW Coeff of Fouzia 14.0 (11.5-14.5) % Plt Count 317 (130-400) K/uL MPV 9.3 L (9.4-12.3) fL Immature Gran % (Auto) 0.6 % Neut % (Auto) 65.1 % Lymph % (Auto) 25.8 % Dickey % (Auto) 7.7 % Eos % (Auto) 0.1 % Baso % (Auto) 0.7 % Neut # (Auto) 4.40 (1.4-6.5) K/uL Lymph # (Auto) 1.75 (1.2-3.4) K/uL Dickey # (Auto) 0.52 (0.24-0.82) K/uL Eos # (Auto) 0.01 (0-0.50) K/uL Baso # (Auto) 0.05 (0-0.2) K/uL Immature Gran # (Auto) 0.04 H (0.00-0.02) K/uL Sodium (136-145) mmol/L Potassium (3.5-5.1) mmol/L Chloride (98-107) mmol/L Carbon Dioxide (21-32) mmol/L Anion Gap (3-11) BUN (6-23) mg/dl Creatinine (0.6-1.2) mg/dl Est Cr Clr Drug Dosing ml/min Est GFR ( Amer) ml/min Est GFR (Non-Af Amer) ml/min BUN/Creatinine Ratio (10-20) Glucose (70-99(Fasting)) mg/dl Calcium (8.5-10.1) mg/dl Total Bilirubin (0.2-1.0) mg/dl AST (13-39) U/L ALT (7-52) U/L Alkaline Phosphatase (34-104) U/L Total Protein (6.0-8.3) gm/dl Albumin (3.4-5.0) gm/dl Globulin (2.5-4.0) gm/dl Albumin/Globulin Ratio (0.9-2) TSH (0.300-4.500) uIu/ml Urine Color Yellow Urine Appearance Clear (Clear) Urine pH 7.0 (4.5-7.5) Ur Specific [place] 1.003 (1.000-1.030) Urine Protein Negative (Negative) Urine Glucose (UA) Negative (Negative) Urine Ketones Negative (Negative) Urine Blood Negative (Negative) Urine Nitrite Negative (Negative) Urine Bilirubin Negative (Negative) Urine Urobilinogen Negative (Negative) Ur Leukocyte Esterase 1+ H (Negative) Urine WBC (Auto) 10-30 H (0-5) /hpf Urine RBC (Auto) 0-4 (0-4) /hpf U Hyaline Cast (Auto) 1-5 (0-5) /lpf U Epithel Cells (Auto) 20-30 H (0-5) /lpf Urine Bacteria (Auto) 1+ H (Negative) Salicylates (3.0-30) mg/dl Urine Opiates Screen Neg (Neg) Ur Methadone, Qual Neg (Neg) Acetaminophen (10-30) ug/ml Urine Barbiturates Neg (Neg) Ur Phencyclidine (PCP) Neg (Neg) U Amphetamin/Meth Scrn Neg (Neg) MDMA (Ecstasy) Screen Neg (Neg) U Benzodiazepines Scrn Neg (Neg) Ur Cocaine Metabolite Neg (Neg) U Marijuana (THC) Screen Neg (Neg) Ethyl Alcohol mg/dL (<10.0) mg/dl SARS-CoV-2, RNA, NAAT (NEGATIVE) 10/02/22 10/02/22 10/02/22 Range/Units 16:54 16:54 16:54 WBC (4.8-10.8) K/ul RBC (3.93-5.22) M/uL Hgb (12.0-16.0) g/dl Hct (34.1-44.9) % MCV (80.0-100.0) fL MCH (25.0-34.0) pg MCHC (32.0-36.0) g/dL RDW Std Deviation (36.4-46.3) fL RDW Coeff of Fouzia (11.5-14.5) % Plt Count (130-400) K/uL MPV (9.4-12.3) fL Immature Gran % (Auto) % Neut % (Auto) % Lymph % (Auto) % Dickey % (Auto) % Eos % (Auto) % Baso % (Auto) % Neut # (Auto) (1.4-6.5) K/uL Lymph # (Auto) (1.2-3.4) K/uL Dickey # (Auto) (0.24-0.82) K/uL Eos # (Auto) (0-0.50) K/uL Baso # (Auto) (0-0.2) K/uL Immature Gran # (Auto) (0.00-0.02) K/uL Sodium 139 (136-145) mmol/L Potassium 3.3 L (3.5-5.1) mmol/L Chloride 99 (98-107) mmol/L Carbon Dioxide 30 (21-32) mmol/L Anion Gap 10 (3-11) BUN 5 L (6-23) mg/dl Creatinine 1.02 (0.6-1.2) mg/dl Est Cr Clr Drug Dosing 60.3 ml/min Est GFR ( Amer) 69.2 ml/min Est GFR (Non-Af Amer) 59.7 ml/min BUN/Creatinine Ratio 4.9 L (10-20) Glucose 129 H (70-99(Fasting)) mg/dl Calcium 9.0 (8.5-10.1) mg/dl Total Bilirubin 0.3 (0.2-1.0) mg/dl AST 14 (13-39) U/L ALT 8 (7-52) U/L Alkaline Phosphatase 101 (34-104) U/L Total Protein 7.7 (6.0-8.3) gm/dl Albumin 4.3 (3.4-5.0) gm/dl Globulin 3.4 (2.5-4.0) gm/dl Albumin/Globulin Ratio 1.3 (0.9-2) TSH 1.414 (0.300-4.500) uIu/ml Urine Color Urine Appearance (Clear) Urine pH (4.5-7.5) Ur Specific [place] (1.000-1.030) Urine Protein (Negative) Urine Glucose (UA) (Negative) Urine Ketones (Negative) Urine Blood (Negative) Urine Nitrite (Negative) Urine Bilirubin (Negative) Urine Urobilinogen (Negative) Ur Leukocyte Esterase (Negative) Urine WBC (Auto) (0-5) /hpf Urine RBC (Auto) (0-4) /hpf U Hyaline Cast (Auto) (0-5) /lpf U Epithel Cells (Auto) (0-5) /lpf Urine Bacteria (Auto) (Negative) Salicylates < 3.0 L (3.0-30) mg/dl Urine Opiates Screen (Neg) Ur Methadone, Qual (Neg) Acetaminophen < 3 L (10-30) ug/ml Urine Barbiturates (Neg) Ur Phencyclidine (PCP) (Neg) U Amphetamin/Meth Scrn (Neg) MDMA (Ecstasy) Screen (Neg) U Benzodiazepines Scrn (Neg) Ur Cocaine Metabolite (Neg) U Marijuana (THC) Screen (Neg) Ethyl Alcohol mg/dL (<10.0) mg/dl SARS-CoV-2, RNA, NAAT (NEGATIVE) 10/02/22 10/02/22 Range/Units 16:54 19:33 WBC (4.8-10.8) K/ul RBC (3.93-5.22) M/uL Hgb (12.0-16.0) g/dl Hct (34.1-44.9) % MCV (80.0-100.0) fL MCH (25.0-34.0) pg MCHC (32.0-36.0) g/dL RDW Std Deviation (36.4-46.3) fL RDW Coeff of Fouzia (11.5-14.5) % Plt Count (130-400) K/uL MPV (9.4-12.3) fL Immature Gran % (Auto) % Neut % (Auto) % Lymph % (Auto) % Dickey % (Auto) % Eos % (Auto) % Baso % (Auto) % Neut # (Auto) (1.4-6.5) K/uL Lymph # (Auto) (1.2-3.4) K/uL Dickey # (Auto) (0.24-0.82) K/uL Eos # (Auto) (0-0.50) K/uL Baso # (Auto) (0-0.2) K/uL Immature Gran # (Auto) (0.00-0.02) K/uL Sodium (136-145) mmol/L Potassium (3.5-5.1) mmol/L Chloride (98-107) mmol/L Carbon Dioxide (21-32) mmol/L Anion Gap (3-11) BUN (6-23) mg/dl Creatinine (0.6-1.2) mg/dl Est Cr Clr Drug Dosing ml/min Est GFR ( Amer) ml/min Est GFR (Non-Af Amer) ml/min BUN/Creatinine Ratio (10-20) Glucose (70-99(Fasting)) mg/dl Calcium (8.5-10.1) mg/dl Total Bilirubin (0.2-1.0) mg/dl AST (13-39) U/L ALT (7-52) U/L Alkaline Phosphatase (34-104) U/L Total Protein (6.0-8.3) gm/dl Albumin (3.4-5.0) gm/dl Globulin (2.5-4.0) gm/dl Albumin/Globulin Ratio (0.9-2) TSH (0.300-4.500) uIu/ml Urine Color Urine Appearance (Clear) Urine pH (4.5-7.5) Ur Specific [place] (1.000-1.030) Urine Protein (Negative) Urine Glucose (UA) (Negative) Urine Ketones (Negative) Urine Blood (Negative) Urine Nitrite (Negative) Urine Bilirubin (Negative) Urine Urobilinogen (Negative) Ur Leukocyte Esterase (Negative) Urine WBC (Auto) (0-5) /hpf Urine RBC (Auto) (0-4) /hpf U Hyaline Cast (Auto) (0-5) /lpf U Epithel Cells (Auto) (0-5) /lpf Urine Bacteria (Auto) (Negative) Salicylates (3.0-30) mg/dl Urine Opiates Screen (Neg) Ur Methadone, Qual (Neg) Acetaminophen (10-30) ug/ml Urine Barbiturates (Neg) Ur Phencyclidine (PCP) (Neg) U Amphetamin/Meth Scrn (Neg) MDMA (Ecstasy) Screen (Neg) U Benzodiazepines Scrn (Neg) Ur Cocaine Metabolite (Neg) U Marijuana (THC) Screen (Neg) Ethyl Alcohol mg/dL < 10.0 (<10.0) mg/dl SARS-CoV-2, RNA, NAAT NEGATIVE (NEGATIVE) Administered Medications Discontinued Medications Lorazepam (Lorazepam 1 Mg Tab) 1 mg PO NOW STA Stop: 10/02/22 16:33 Last Admin: 10/02/22 17:13 Dose: 1 mg Documented By: Potassium Chloride (Potassium Chloride Crtab 20 Meq Tabcr) 20 meq PO NOW STA Stop: 10/02/22 18:07 Last Admin: 10/02/22 18:45 Dose: 20 meq Documented By: Discharge Plan Visit Data Chief Complaint: Mental Health Evaluation Stated Complaint: paranoid, anxitey, ED Provider: Rama Marshall Discharge Problem: Anxiety, Suicidal ideation Patient Disposition: Admitted As Inpatient Discharge Instructions Interventions: ED Discharge Assessment Last Done: 10/02/22 21:07 Forms Stand Alone Forms: [facility], Suicide Prevention Resources Prescriptions Prescriptions: No Action hydroxyzine HCl 25 mg Tablet 25 mg PO DAILY PRN (Reason: ELIJAH with panic attacks) Qty: 7 0RF Referrals Referrals: Ai Pina PA-C [Primary Care Provider] -
[2022-10-02 16:54] LABS: Appearance Urine Clear (Clear); Bilirubin Urine Negative (Negative); Blood Urine Negative (Negative); Color Urine Yellow; Glucose Urine UA Negative (Negative); Ketones Urine Negative (Negative); Leukocyte Esterase Urine 1+ (Negative); Nitrite Urine Negative (Negative); Protein Urine Negative (Negative); Specific Gravity Urine 1.003 (1.000-1.030); Urobilinogen Urine Negative (Negative)
[2022-10-02 17:07] LABS: Basophils # (auto) 0.05 K/uL (0-0.2); Basophils % (auto) 0.7 %; Eosinophils # (auto) 0.01 K/uL (0-0.50); Eosinophils % (auto) 0.1 %; Hematocrit (blood only) 41.1 % (34.1-44.9); Hemoglobin 14.3 g/dl (12.0-16.0); Immature Granulocytes # (auto) 0.04 K/uL (0.00-0.02); Immature Granulocytes % (auto) 0.6 %; Lymphocytes # (auto) 1.75 K/uL (1.2-3.4); Lymphocytes % (auto) 25.8 %; Mean Corpuscular Hgb Conc 34.8 g/dL (32.0-36.0); Mean Corpuscular Volume 86.2 fL (80.0-100.0); Mean Platelet Volume 9.3 fL (9.4-12.3); Monocytes # (auto) 0.52 K/uL (0.24-0.82); Monocytes % (auto) 7.7 %; Neutrophils % (auto) 65.1 %; Platelet Count 317 K/uL (130-400); RDW Standard Deviation 44.5 fL (36.4-46.3); Red Blood Count 4.77 M/uL (3.93-5.22); White Blood Count 6.77 K/ul (4.8-10.8)
[2022-10-02 17:10] LABS: Epithelial Cell Urine Auto 20-30 /lpf (0-5)
[2022-10-02 17:11] LABS: Bacteria Urine Automated 1+ (Negative); RBC Urine Automated 0-4 /hpf (0-4)
[2022-10-02 17:31] LABS: Acetaminophen < 3 ug/ml (10-30); Salicylate < 3.0 mg/dl (3.0-30)
[2022-10-02 17:32] LABS: Albumin Globulin Ratio 1.3 (0.9-2); Albumin Level 4.3 gm/dl (3.4-5.0); BUN Creatinine Ratio 4.9 (10-20); Bilirubin,Total 0.3 mg/dl (0.2-1.0); Creatinine Clr Calc Pharmacy 60.3 ml/min; Est GFR (African American) 69.2 ml/min; Est GFR (Non-African American) 59.7 ml/min; Globulin 3.4 gm/dl (2.5-4.0); Potassium 3.3 mmol/L (3.5-5.1); Total Protein 7.7 gm/dl (6.0-8.3)
[2022-10-02 17:34] LABS: Amphetamines+Metham, Urine Neg (Neg); Barbiturates, Urine Neg (Neg); Benzodiazepine, Urine Neg (Neg); Cocaine, Urine Neg (Neg); MDMA (Ecstacy), Urine Neg (Neg); Methadone, Urine Neg (Neg); Opiate, Urine Neg (Neg); Phencyclidine, Urine Neg (Neg)
[2022-10-02] MEDS ORDERED: POTASSIUM CHLORIDE CRTAB 20 MEQ TABCR PO STA (18:06)
[2022-10-02] MEDS ORDERED: MAGNESIUM HYDROXIDE SUSP 30 ML UDC PO PRN (20:38)
[2022-10-02] MEDS ORDERED: BISMUTH SUBSALICYLATE LIQD 236 ML PO PRN (20:38)
[2022-10-02] MEDS ORDERED: ACETAMINOPHEN 325 MG TAB PO PRN (20:38)
[2022-10-02] MEDS ORDERED: ALUMINUM/MAGNESIUM SUSP 30 ML UDC PO PRN (20:38)
[2022-10-02] MEDS ORDERED: hydrOXYzine HCl 25 MG TAB PO PRN ×2 (20:38)
[2022-10-02] MEDS ORDERED: SODIUM CHLORIDE 0.65% NA SOLN 45 ML (OCEAN) PRN (20:38)
[2022-10-02] MEDS ORDERED: OLANZapine 5 MG TABLET PO SCH (21:00)
[2022-10-03] MEDS: metroNIDAZOLE 0.75% TOPICAL GEL 45 GM TUBE TOP SCH ×2 (08:10→20:44)
[2022-10-03] MEDS ORDERED: PROPRANOLOL HCL 10 MG TAB PO PRN (11:44)
--- NOTE | 2022-10-03 13:15 | History & Physical ---
Date of Service October 03, 2022 Impression / Recommendations Impression Alize is a 62 year old with a history of MDD with psychotic features, anxiety and alcohol use presenting with severe anxiety, paranoia, and worsening depression with SI with plans. Diagnostically consistent with major depressive disorder with psychotic features and anxious distress as well as likely ELIJAH with panic attacks and recent brief relapse of alcohol use. No signs for acute withdrawal and given limited use not felt to need AWSS at this time. She is deemed unstable and requires psychiatric hospitalization for diagnostic clarification, safety and stabilization, medication management and development of further coping skills. Discussed medication treatment options in detail. Discussed risks, benefits and alternatives. Patient would like to start and consented to fluoxetine for MDD/ELIJAH, risperidone for psychosis, gabapentin, propranolol for panic attacks/anxiety. Reviewed side effects including but not limited to: GI, ALANIS, sexual side effects, and counseled on black box warning of potential for emergence of or increased SI and need to let staff know should this occur or should they feel unsafe; also discussed importance of seeking emergency care following discharge if this side effect occurs in the future with fluoxetine. As well as movement (TD, NMS), cardiac (QTc prolongation), and metabolic (stroke, insulin resistance) and necessity for fasting lipid and glucose labwork and AIMS done with score of 0 for risperidone. As well as dizziness, potential for fatal respiratory depression if combined with alcohol for gabapentin. As well as low BP, syncope, mood changes with propranolol. The patient's recent relapse of alcohol raises concern given history of problematic substance use. Brief intervention was offered and accepted. Intervention was greater than 5 minutes in length and included assessing readiness to quit, advice on how to reduce or abstain and to set a specific goal for this hospitalization. before and after school daycare worker will also assist in anticipating barriers to reducing or abstaining from substance use and in problem-solving for solutions to those problems while arranging for referral to appropriate treatment. The patient is in action stage with regards to transtheoretical model of change. The patient is advised to avoid further consumption due to depressant effects and risk of interaction with prescription medications. The patient agreed to continue to avoid alcohol and will be provided with recovery materials to continue to educate self on how to cope with their condition without using substances. MNPR due to psychosis with paranoia Overall, I spent a total of 75 minutes with this case including review of chart records, review of labwork, review of EKG QTc, direct evaluation of the patient, counseling the patient, ordering medication, discussion of the patient with nurse and social insurance administrator during clinical rounds and documentation in the electronic health record. (1) Major depressive disorder, recurrent, severe with psychotic features: (2) Suicidal ideation: (3) Generalized anxiety disorder with panic attacks: Plan 10/03/2022: The patient was admitted to the [facility] ([facility] unit) on q15 min checks (behavioral with suicide precautions) for safety. The patient will participate in group, recreational, and milieu therapies and will be offered additional individual and family sessions as clinically appropriate. -Start fluoxetine for depression and anxiety -Start risperidone 0.5mg BID for psychosis/paranoia -Start gabapentin, propranolol and risperidone prn for breakthrough anxiety and paranoia -Stop buspar and mirtazapine per her request Inventory Assets Strengths: supportive relationships, willing to get treatment, outpatient provider Needs: safety and stabilization, medication adjustment, additional coping skills, increased outpatient services Suicide Risk Level Suicide Risk Level: High-Moderate (q15 min suicide checks) (severe depression and anxious distress with SI with plan prior to admission but feels safe in the hospital, able to safety contract and agrees to let nursing/staff know should they develop plan, intent or feel unable to remain safe. ) Risk Factors Assessment : Yes Do You Have Access To A Gun?: No Mental Health Diagnoses: Yes Substance Use Disorders: Yes Previous Attempt: Yes Family History of Suicide: No Previous Psychiatric Hospitalization: Yes Protective Factors Assessment : Yes Employed: No Stable Relationships: Yes Supportive Family: Yes Psychiatric History Identifying Data ALIZE SANDHU is a 62-year-old F who currently lives in [place] with her , has a history of depression with psychotic features, anxiety and alcohol use disorder, and was admitted on 10/02/22 20:38 on a 201 voluntary commitment for worsening mood symptoms and SI with plans. Chief Complaint "I worry that you'll kill me". History of Present Illness Alize presents for psychiatric admission for worsening depression, anxiety and SI with plans of shooting herself or walking into traffic or disappearing along the highway. Has been having non-stop panic attacks but has been able to leave the house. She's also been feeling increasingly paranoid including fears about her food being contaminated and thinking her has said things like "I might try to kill her" when he's sleeping. She feels like she "can't trust" anything and notes "I just need a little bit to calm me down". Has a sense of "I need to crawl out of my skin". She relapsed on alcohol use this week having a few wine coolers which has caused her to feel increased shame. She feels stuck because the alcohol is the "only things that relaxes me" but her said he won't stay with her if she starts drinking again. She thinks the precipitant to the mood changes was winter season and getting out of her routine of going outside for a walk and doing her work. She is currently prescribed mirtazapine, buspirone, and Vistaril but has not found these helpful and has only been taking the buspirone. She finds the mirtazapine makes her feel restless. Hasn't yet started fluoxetine but her PCP just prescribed this. Psychiatric ROS notable for no current nor history of symptoms of romero, OCD nor eating disorder. States she has experienced auditory hallucinations but "I don't want to talk about that". Past Psychiatric History Current Psychiatric Diagnosis: MDD Outpatient Services: K[facility]ia Robertson at [facility], no therapist Previous Psych Admissions: [facility] February 2022, [facility] x2 in 2019, [place] 2004 Do You Have Access To A Gun?: No History of Previous Suicide Attempt: Yes Describe Attempts in the Past: 2019 via overdose on Seroquel Past Medication Trials: Trazodone, Lexapro, Abilify, Seroquel, Wellbutrin, Xanax, Fluoxetine (she recalls this helped in the past) Past Head Trauma/Neuro History History of Concussion/Seizure: No Allergies Allergy/AdvReac Type Severity Reaction Status Date / Time No Known Allergies Allergy Verified 10/03/22 13:21 Home Medications Medication Instructions Recorded Confirmed Type buspirone 15 mg tablet 15 mg PO TID 10/02/22 10/02/22 History fluoxetine 20 mg capsule (Prozac) 20 mg PO DAILY 10/02/22 10/02/22 History hydroxyzine HCl 10 mg tablet 10 mg PO TID PRN Anxiety 10/02/22 10/02/22 History lorazepam 0.5 mg tablet (Ativan) 0.5 mg PO BID PRN Anxiety 10/02/22 10/02/22 History losartan 25 mg tablet 25 mg PO DAILY 10/02/22 10/02/22 History metronidazole 0.75 % topical gel 1 applic topical BID 10/02/22 10/02/22 History mirtazapine 15 mg tablet (Remeron) 15 mg PO HS 10/02/22 10/02/22 History Family History Family History of: Anxiety Family Mental Health History Comment: Sisters have anxiety Alcohol History Hx of Alcohol Use Over the Past 12 Months: No AUDIT Total Score: 0 Within the last week had 3 wine coolers over two days Smoking Use Smoking Status: Never smoker Substance History Hx of Prescription Med Misuse Over the Past 12 Months: No Hx of Over the Counter Med Misuse Over the Past 12 Months: No Hx of Inhalent Misuse Over the Past 12 Months: No Hx of Organic Substance Use Over the Past 12 Months: No Hx of Illegal Substances/Street Drug Use Over Past 12 Months: No Problems as a Result of Past Substance Use: None Identified Personal History Living Arrangements: Home Highest Grade Completed: G.E.D. Employment Status: Unemployed Marital Status: Number Of Children: 3 Beliefs That Will Affect Care: None Current Legal Problems: No Hx Legal Problems: Yes (2003) Hx Traumatic Life Events: Yes Patient History Medical History Alcohol abuse hx of, sober since 08/2021 Anxiety Depression Surgical History Hx of section Family History Mother Diabetes Other Depression Social History Smoking Status: Never smoker Second Hand Exposure: No; Hx Alcohol Use: Yes Alcohol type: hard liquor Hx Substance Use: No Preferred Language: Welsh Communication Ability: Effective Dredge Mate Required: No Beliefs That Will Affect Care: None Current Living Situation: Spouse Feels Safe at Home: Yes Gender Identity: Female Assistive Devices: None Review of Systems Review of Systems: All systems reviewed & are unremarkable except as noted in HPI & below (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) Physical Exam Psychiatric: Orientation: alert and oriented x 3 Apperance: appropriately dressed and appropriately groomed Eye Contact: good eye contact Motor Behavior: no abnormal motor movements Speech: normal rate/rhythm/volume of speech Affect: + anxious affect and + flat affect Mood: + depressed mood and + anxious mood Thought Process: + perseveration Thought Content: + preoccupation, + paranoid and + hopelessness Suicidal Thoughts: denies suicidal intent; + reports suicidal thoughts (intermittent thoughts ) and + reports suicidal plan (denies plan for in the hospital but multiple for outside hospital) Homicidal Thoughts: denies homicidal thoughts Hallucinations: + auditory hallucinations (unable to discuss ); no visual hallucinations Cognition: recent memory grossly intact, remote memory grossly intact, attention grossly intact and language grossly intact Estimated Intelligence: consistent with education level Insight: + limited insight Judgement: + limited judgement Vital Signs (Past 24 Hours): Last Vital Signs Temp 37.1 C 10/03/22 06:41 Pulse 86 10/03/22 11:51 Resp 16 10/03/22 06:41 BP 146/85 H 10/03/22 11:51 Pulse Ox 99 10/02/22 21:17 O2 Del Method 10/02/22 21:17 Exam Statement: A physical exam was performed in the ED by Dr. Marshall for the purposes of medical clearance. I accept that physical as correct and adequate for the purposes of the inpatient physical exam. Results & Data ([facility]) Laboratory Results Laboratory Results - last 24 hr 10/02/22 10/02/22 10/02/22 16:20 16:20 16:54 WBC 6.77 RBC 4.77 Hgb 14.3 Hct 41.1 MCV 86.2 MCH 30.0 MCHC 34.8 RDW Std Deviation 44.5 RDW Coeff of [place]ou[place] 14.0 Plt Count 317 MPV 9.3 L Immature Gran % (Auto) 0.6 Neut % (Auto) 65.1 Lymph % (Auto) 25.8 Harper % (Auto) 7.7 Eos % (Auto) 0.1 Baso % (Auto) 0.7 Neut # (Auto) 4.40 Lymph # (Auto) 1.75 Harper # (Auto) 0.52 Eos # (Auto) 0.01 Baso # (Auto) 0.05 Immature Gran # (Auto) 0.04 H Sodium Potassium Chloride Carbon Dioxide Anion Gap BUN Creatinine Est Cr Clr Drug Dosing Est GFR ( Amer) Est GFR (Non-Af Amer) BUN/Creatinine Ratio Glucose Calcium Total Bilirubin AST ALT Alkaline Phosphatase Total Protein Albumin Globulin Albumin/Globulin Ratio TSH Urine Color Yellow Urine Appearance Clear Urine pH 7.0 Ur Specific [place] 1.003 Urine Protein Negative Urine Glucose (UA) Negative Urine Ketones Negative Urine Blood Negative Urine Nitrite Negative Urine Bilirubin Negative Urine Urobilinogen Negative Ur Leukocyte Esterase 1+ H Urine WBC (Auto) 10-30 H Urine RBC (Auto) 0-4 U Hyaline Cast (Auto) 1-5 U Epithel Cells (Auto) 20-30 H Urine Bacteria (Auto) 1+ H Salicylates Urine Opiates Screen Neg Ur Methadone, Qual Neg Acetaminophen Urine Barbiturates Neg Ur Phencyclidine (PCP) Neg U Amphetamin/Meth Scrn Neg MDMA (Ecstasy) Screen Neg U Benzodiazepines Scrn Neg Ur Cocaine Metabolite Neg U Marijuana (THC) Screen Neg Ethyl Alcohol mg/dL SARS-CoV-2, RNA, NAAT 10/02/22 10/02/22 10/02/22 16:54 16:54 16:54 WBC RBC Hgb Hct MCV MCH MCHC RDW Std Deviation RDW Coeff of [place] Plt Count MPV Immature Gran % (Auto) Neut % (Auto) Lymph % (Auto) Harper % (Auto) Eos % (Auto) Baso % (Auto) Neut # (Auto) Lymph # (Auto) Harper # (Auto) Eos # (Auto) Baso # (Auto) Immature Gran # (Auto) Sodium 139 Potassium 3.3 L Chloride 99 Carbon Dioxide 30 Anion Gap 10 BUN 5 L Creatinine 1.02 Est Cr Clr Drug Dosing 60.3 Est GFR ( Amer) 69.2 Est GFR (Non-Af Amer) 59.7 BUN/Creatinine Ratio 4.9 L Glucose 129 H Calcium 9.0 Total Bilirubin 0.3 AST 14 ALT 8 Alkaline Phosphatase 101 Total Protein 7.7 Albumin 4.3 Globulin 3.4 Albumin/Globulin Ratio 1.3 TSH 1.414 Urine Color Urine Appearance Urine pH Ur Specific [place] Urine Protein Urine Glucose (UA) Urine Ketones Urine Blood Urine Nitrite Urine Bilirubin Urine Urobilinogen Ur Leukocyte Esterase Urine WBC (Auto) Urine RBC (Auto) U Hyaline Cast (Auto) U Epithel Cells (Auto) Urine Bacteria (Auto) Salicylates < 3.0 L Urine Opiates Screen Ur Methadone, Qual Acetaminophen < 3 L Urine Barbiturates Ur Phencyclidine (PCP) U Amphetamin/Meth Scrn MDMA (Ecstasy) Screen U Benzodiazepines Scrn Ur Cocaine Metabolite U Marijuana (THC) Screen Ethyl Alcohol mg/dL SARS-CoV-2, RNA, NAAT 10/02/22 10/02/22 16:54 19:33 WBC RBC Hgb Hct MCV MCH MCHC RDW Std Deviation RDW Coeff of [place] Plt Count MPV Immature Gran % (Auto) Neut % (Auto) Lymph % (Auto) Harper % (Auto) Eos % (Auto) Baso % (Auto) Neut # (Auto) Lymph # (Auto) Harper # (Auto) Eos # (Auto) Baso # (Auto) Immature Gran # (Auto) Sodium Potassium Chloride Carbon Dioxide Anion Gap BUN Creatinine Est Cr Clr Drug Dosing Est GFR ( Amer) Est GFR (Non-Af Amer) BUN/Creatinine Ratio Glucose Calcium Total Bilirubin AST ALT Alkaline Phosphatase Total Protein Albumin Globulin Albumin/Globulin Ratio TSH Urine Color Urine Appearance Urine pH Ur Specific [place] Urine Protein Urine Glucose (UA) Urine Ketones Urine Blood Urine Nitrite Urine Bilirubin Urine Urobilinogen Ur Leukocyte Esterase Urine WBC (Auto) Urine RBC (Auto) U Hyaline Cast (Auto) U Epithel Cells (Auto) Urine Bacteria (Auto) Salicylates Urine Opiates Screen Ur Methadone, Qual Acetaminophen Urine Barbiturates Ur Phencyclidine (PCP) U Amphetamin/Meth Scrn MDMA (Ecstasy) Screen U Benzodiazepines Scrn Ur Cocaine Metabolite U Marijuana (THC) Screen Ethyl Alcohol mg/dL < 10.0 SARS-CoV-2, RNA, NAAT NEGATIVE Current Inpatient Medications Current Inpatient Medications: Current Inpatient Medications Acetaminophen (Acetaminophen 325 Mg Tab) 650 mg PO Q4H PRN PRN Reason: Headache or Minor Fever Stop: 11/01/22 20:37 Al Hydrox/Mg Hydrox/Simethicone (Aluminum/Magnesium Susp 30 Ml Udc) 30 ml PO Q4H PRN PRN Reason: GI Upset Stop: 11/01/22 20:37 Bismuth Subsalicylate (Bismuth Subsalicylate Liqd 236 Ml) 15 ml PO PRN PRN PRN Reason: Loose Stool Stop: 11/01/22 20:37 Hydroxyzine HCl (Hydroxyzine Hcl 25 Mg Tab) 50 mg PO HSZ PRN PRN Reason: Insomnia Stop: 11/01/22 20:37 Hydroxyzine HCl (Hydroxyzine Hcl 25 Mg Tab) 25 mg PO Q4H PRN PRN Reason: Anxiety Stop: 11/01/22 20:37 Magnesium Hydroxide (Magnesium Hydroxide Susp 30 Ml Udc) 30 ml PO DAILY PRN PRN Reason: Constipation Stop: 11/01/22 20:37 Metronidazole (Metronidazole 0.75% Topical Gel 45 Gm Tube) 1 appln TOP BID HONORIO Stop: 10/13/22 08:59 Last Admin: 10/03/22 08:10 Dose: 1 appln Propranolol HCl (Propranolol Hcl 10 Mg Tab) 10 mg PO BID PRN PRN Reason: Anxiety/Agitation Stop: 11/02/22 11:44 Sodium Chloride (Sodium Chloride 0.65% Na Soln 45 Ml ([place])) 1 - 2 sprays NA PRN PRN PRN Reason: Nasal Dryness/Congestion Stop: 11/01/22 20:37
[2022-10-03] MEDS ORDERED: GABAPENTIN 100 MG CAP PO PRN (13:33)
[2022-10-03] MEDS ORDERED: busPIRone 15 MG TAB PO SCH (14:00)
[2022-10-03] MEDS: FLUoxetine HCL 20 MG CAP PO SCH (14:01)
[2022-10-03] MEDS: LOSARTAN POTASSIUM 25 MG TAB PO SCH (15:15)
[2022-10-03] MEDS: risperiDONE 0.5 MG TABLET PO PRN (16:34)
[2022-10-03] MEDS: risperiDONE 0.5 MG TABLET PO SCH (20:44)
[2022-10-04] MEDS: risperiDONE 0.5 MG TABLET PO PRN (03:01)
[2022-10-04] MEDS: LOSARTAN POTASSIUM 25 MG TAB PO SCH (07:40)
[2022-10-04] MEDS: FLUoxetine HCL 20 MG CAP PO SCH (07:40)
[2022-10-04] MEDS: risperiDONE 0.5 MG TABLET PO SCH (07:40)
[2022-10-04] MEDS: metroNIDAZOLE 0.75% TOPICAL GEL 45 GM TUBE TOP SCH ×2 (07:41→20:21)
--- NOTE | 2022-10-04 08:39 | Psychiatric Progress Note ---
Date of Service October 04, 2022 Impression / Recommendations Impression Bear is a 62 year old with a history of MDD with psychotic features, anxiety and alcohol use presenting with severe anxiety, paranoia, and worsening depression with SI with plans. Diagnostically consistent with major depressive disorder with psychotic features and anxious distress as well as likely ELIJAH with panic attacks and recent brief relapse of alcohol use. No signs for acute withdrawal and given limited use not felt to need AWSS at this time. She is deemed unstable and requires psychiatric hospitalization for diagnostic clarification, safety and stabilization, medication management and development of further coping skills. MNPR due to psychosis with paranoia 10/04/22: still very severe depression and anxiety and significant psychic distress. Very poor sleep last night. Possible akathisia from risperidone vs not finding it helpful for her baseline anxiety. Discussed medication treatment options in detail. Discussed risks, benefits and alternatives. Patient would like to switch and start seroquel instead of risperidone. Reviewed similar side effects to risperidone re: movement, metabolic, cardiac risk factors. Provided prn ativan given level of distress today and lack of sleep overnight. Discussed potential side effects including addiction potential, dizziness, increased risk of falls. Interestingly is very focused on somatic worries and side effects of medications but not at all concerned about side effects or potential addictive potential of ativan, and actually requested higher frequency of dosing. (1) Major depressive disorder, recurrent, severe with psychotic features: (2) Suicidal ideation: (3) Generalized anxiety disorder with panic attacks: Plan 10/04/22: Stop risperidone. Start seroquel 150mg hs with additional 100mg hs prn if needed. Discontinue propranolol as she is not finding this helpful 10/03/2022: The patient was admitted to the [facility] ([facility] mental health unit) on q15 min checks (behavioral with suicide precautions) for safety. The patient will participate in group, recreational, and milieu therapies and will be offered additional individual and family sessions as clinically appropriate. -Start fluoxetine for depression and anxiety -Start risperidone 0.5mg BID for psychosis/paranoia -Start gabapentin, propranolol and risperidone prn for breakthrough anxiety and paranoia -Stop buspar and mirtazapine per her request Inventory Assets Strengths: supportive relationships, willing to get treatment, outpatient provider Needs: safety and stabilization, medication adjustment, additional coping skills, increased outpatient services Suicide Risk Level Suicide Risk Level: High-Moderate (q15 min suicide checks) (severe depression and anxious distress with SI with plan prior to admission but feels safe in the hospital, able to safety contract and agrees to let nursing/staff know should they develop plan, intent or feel unable to remain safe. ) Suicide Risk Level Comments: Risk Factors Assessment : Yes Do You Have Access To A Gun?: No Mental Health Diagnoses: Yes Substance Use Disorders: Yes Previous Attempt: Yes Family History of Suicide: No Previous Psychiatric Hospitalization: Yes Protective Factors Assessment : Yes Employed: No Stable Relationships: Yes Supportive Family: Yes Interval History Identifying Information BEAR SANDHU is a 62-year-old F who currently lives in [place] with her , has a history of depression with psychotic features, anxiety and alcohol use disorder, and was admitted on 10/02/22 20:38 on a 201 voluntary commitment for worsening mood symptoms and SI with plans. Chief Complaint "That ativan made it so I could finally lay down". Review of Systems Sleep Information Total Hours of Sleep: 2.25 Sleep Comments: Patient restless and anxious; given Risperdal prn for anxiety/agitation; walked as coping skill for anxiety Meal Information Percent Meal Consumed - Breakfast: 20 Percent Meal Consumed - Lunch: 20 Percent Meal Consumed - Dinner: 20 Nutrition Comment: pt. has poor appetite r/t anxiety Subjective Subjective Patient was seen & assessed and interval progress reviewed with treatment team nursing and social work. Was only able to sleep 2 hours last night. Very agitated, restless, pacing. Accepted prn risperidal at 3am with no perceived benefit. This morning remains very overwhelmed. Was given ativan and found this very helpful. Feels the risperidone made her feel "awful, like I needed to crawl out of my skin". Discussed alternative medication options to help with parnaoia and psychosis. Does not feel propranolol was helpful. Physical Exam Psychiatric Orientation: alert and oriented x 3 Apperance: appropriately dressed and appropriately groomed Eye Contact: good eye contact Motor Behavior: no abnormal motor movements Speech: normal rate/rhythm/volume of speech Affect: + anxious affect and + irritable affect Mood: + depressed mood and + anxious mood Thought Process: + perseveration Thought Content: + preoccupation, + paranoid and + hopelessness Suicidal Thoughts: denies suicidal intent; + reports suicidal thoughts (intermittent thoughts ) and + reports suicidal plan (denies plan for in the hospital but multiple for outside hospital) Homicidal Thoughts: denies homicidal thoughts Hallucinations: + auditory hallucinations (unable to discuss ); no visual hallucinations Cognition: recent memory grossly intact, remote memory grossly intact, attention grossly intact and language grossly intact Estimated Intelligence: consistent with education level Insight: + limited insight Judgement: + limited judgement Vital Signs (Past 24 Hours) Last Vital Signs Temp 36.8 C 10/04/22 06:35 Pulse 84 10/04/22 07:50 Resp 16 10/04/22 07:50 BP 149/82 H 10/04/22 07:50 Pulse Ox 99 10/02/22 21:17 O2 Del Method 10/02/22 21:17 Results & Data ([facility]) Current Inpatient Medications Current Inpatient Medications: Current Inpatient Medications Acetaminophen (Acetaminophen 325 Mg Tab) 650 mg PO Q4H PRN PRN Reason: Headache or Minor Fever Stop: 11/01/22 20:37 Al Hydrox/Mg Hydrox/Simethicone (Aluminum/Magnesium Susp 30 Ml Udc) 30 ml PO Q4H PRN PRN Reason: GI Upset Stop: 11/01/22 20:37 Bismuth Subsalicylate (Bismuth Subsalicylate Liqd 236 Ml) 15 ml PO PRN PRN PRN Reason: Loose Stool Stop: 11/01/22 20:37 Fluoxetine HCl (Fluoxetine Hcl 20 Mg Cap) 20 mg PO QAM [facility] Stop: 11/02/22 13:44 Last Admin: 10/04/22 07:40 Dose: 20 mg Gabapentin (Gabapentin 100 Mg Cap) 100 mg PO TID PRN PRN Reason: Anxiety/Agitation Stop: 11/02/22 13:59 Losartan Potassium (Losartan Potassium 25 Mg Tab) 25 mg PO DAILY [facility] Stop: 11/02/22 13:14 Last Admin: 10/04/22 07:40 Dose: 25 mg Magnesium Hydroxide (Magnesium Hydroxide Susp 30 Ml Udc) 30 ml PO DAILY PRN PRN Reason: Constipation Stop: 11/01/22 20:37 Metronidazole (Metronidazole 0.75% Topical Gel 45 Gm Tube) 1 appln TOP BID [facility] Stop: 10/13/22 08:59 Last Admin: 10/04/22 07:41 Dose: 1 appln Propranolol HCl (Propranolol Hcl 10 Mg Tab) 10 mg PO BID PRN PRN Reason: Anxiety/Agitation Stop: 11/02/22 11:44 Last Admin: 10/03/22 13:34 Dose: 10 mg Risperidone (Risperidone 0.5 Mg Tablet) 0.5 mg PO BID HONORIO Stop: 11/02/22 20:59 Last Admin: 10/04/22 07:40 Dose: 0.5 mg Risperidone (Risperidone 0.5 Mg Tablet) 0.25 mg PO DAILY PRN PRN Reason: Anxiety/Agitation Stop: 11/03/22 08:59 Last Admin: 10/04/22 03:01 Dose: 0.25 mg Sodium Chloride (Sodium Chloride 0.65% Na Soln 45 Ml ([place])) 1 - 2 sprays NA PRN PRN PRN Reason: Nasal Dryness/Congestion Stop: 11/01/22 20:37
[2022-10-04] MEDS: LORazepam 1 MG TAB PO PRN (08:58)
[2022-10-04] MEDS ORDERED: QUEtiapine FUMARATE 100 MG TABLET PO PRN (16:43)
[2022-10-04] MEDS: QUEtiapine FUMARATE 25 MG TABLET PO SCH (20:21)
--- NOTE | 2022-10-04 21:05 | Electrocardiogram Report ---
Test Reason : Blood Pressure : / mmHG Vent. Rate : 112 BPM Atrial Rate : 112 BPM P-R Int : 182 ms QRS Dur : 074 ms QT Int : 306 ms P-R-T Axes : 062 012 056 degrees QTc Int : 417 ms Sinus tachycardia Normal ECG When compared with ECG of 10-MAR-2022 13:54, Vent. rate has increased BY 41 BPM Nonspecific T wave abnormality no longer evident in Inferior leads Confirmed by Bello Cárdenas ([id number]) on 10/04/2022 9:04:51 PM Referred By: REFERRED SELF Confirmed By:Bello Cárdenas
[2022-10-04] MEDS ORDERED: QUEtiapine FUMARATE 25 MG TABLET PO SCH (22:00)
[2022-10-05] MEDS: FLUoxetine HCL 20 MG CAP PO SCH (08:27)
[2022-10-05] MEDS: LOSARTAN POTASSIUM 25 MG TAB PO SCH (08:28)
[2022-10-05] MEDS: metroNIDAZOLE 0.75% TOPICAL GEL 45 GM TUBE TOP SCH ×2 (08:28→20:10)
--- NOTE | 2022-10-05 08:53 | Psychiatric Progress Note ---
Date of Service October 05, 2022 Impression / Recommendations Impression Bear is a 62 year old with a history of MDD with psychotic features, anxiety and alcohol use presenting with severe anxiety, paranoia, and worsening depression with SI with plans. Diagnostically consistent with major depressive disorder with psychotic features and anxious distress as well as likely ELIJAH with panic attacks and recent brief relapse of alcohol use. BPAD mixed picture possible but felt to be unlikely at this point. No signs for acute withdrawal and given limited use not felt to need AWSS at this time. No signs of excitatory catatonia but will continue to monitor given periods of limited sleep. She is deemed unstable and requires psychiatric hospitalization for diagnostic clarification, safety and stabilization, medication management and development of further coping skills. MNPR due to significant paranoia 10/04/22: ongoing paranoia especially about taking medication, only trusts ativan and now even less sure about full dose of ativan. Slept better with seroquel, though she only agreed to low dose. Continue to encourage medication titration as she allows. Remains unable to safely function outside of hospital setting. (1) Major depressive disorder, recurrent, severe with psychotic features: (2) Suicidal ideation: (3) Generalized anxiety disorder with panic attacks: Plan 10/05/22: Continue fluoxetine 20mg qd. Continue Seroquel 50mg HS (she declines any higher dose). Ativan 1mg BID prn. 10/04/22: Stop risperidone. Start seroquel 150mg hs with additional 100mg hs prn if needed. Discontinue propranolol as she is not finding this helpful 10/03/2022: The patient was admitted to the [facility] ([facility] mental health unit) on q15 min checks (behavioral with suicide precautions) for safety. The patient will participate in group, recreational, and milieu therapies and will be offered additional individual and family sessions as clinically appropriate. -Start fluoxetine for depression and anxiety -Start risperidone 0.5mg BID for psychosis/paranoia -Start gabapentin, propranolol and risperidone prn for breakthrough anxiety and paranoia -Stop buspar and mirtazapine per her request Inventory Assets Strengths: supportive relationships, willing to get treatment, outpatient provider Needs: safety and stabilization, medication adjustment, additional coping skills, increased outpatient services Suicide Risk Level Suicide Risk Level: High-Moderate (q15 min suicide checks) (depression and anxious distress with SI with plan prior to admission and ongoing paranoia and odd behaviors at home but feels safe in the hospital, able to safety contract and agrees to let nursing/staff know should they develop plan, intent or feel unable to remain safe. ) Suicide Risk Level Comments: Risk Factors Assessment : Yes Do You Have Access To A Gun?: No Mental Health Diagnoses: Yes Substance Use Disorders: Yes Previous Attempt: Yes Family History of Suicide: No Previous Psychiatric Hospitalization: Yes Protective Factors Assessment : Yes Employed: No Stable Relationships: Yes Supportive Family: Yes Interval History Identifying Information BEAR SANDHU is a 62-year-old F who currently lives in [place] with her , has a history of depression with psychotic features, anxiety and alcohol use disorder, and was admitted on 10/02/22 20:38 on a 201 voluntary commitment for worsening mood symptoms and SI with plans. Chief Complaint "When can I go home?". Review of Systems Sleep Information Total Hours of Sleep: 8.25 Sleep Comments: Patient restless and anxious; given Risperdal prn for anxiety/agitation; walked as coping skill for anxiety Meal Information Percent Meal Consumed - Breakfast: 20 Percent Meal Consumed - Lunch: 90 Percent Meal Consumed - Dinner: 25 Nutrition Comment: pt. has poor appetite r/t anxiety Subjective Subjective Patient was seen & assessed and interval progress reviewed with treatment team nursing and social work. Briefly went to self awareness group last evening. Still anxious. Requested Seroquel dose be lowered as declined higher dose ordered but took 50mg. Slept about 8 hours overnight. Only took one prn ativan yesterday. This morning accepted 1/2 tab ativan. Still perseverative at times but wanting to plan for discharge but also still very anxious. Collateral information that her provided SW confirmed concerns about paranoia and odd behaviors at home. She denies SI noting "no I'm more afraid someone will kill me". Remains concerned that we could kill her using the medication. Wonders about why the pill sizes and shapes have been "always changing and different". Reviewed recent medication adjustments and she was reassured by this rationale for why pill sizes changed. States she did dip her tongue into rubbing alcohol bottle at one point to see if this would help with anxiety but says this was many months ago. Continues to re-iterate only recent alcohol use was 2-3 wine coolers over 3 days "because I needed to see if it would help before I came to the hospital". Agreeable to continuing inpatient treatment. Physical Exam Psychiatric Orientation: alert and oriented x 3 Apperance: appropriately dressed and appropriately groomed Eye Contact: good eye contact Motor Behavior: no abnormal motor movements Speech: normal rate/rhythm/volume of speech Affect: + anxious affect and + irritable affect Mood: + depressed mood and + anxious mood Thought Process: + perseveration Thought Content: + preoccupation and + paranoid Suicidal Thoughts: denies suicidal thoughts Homicidal Thoughts: denies homicidal thoughts Hallucinations: no auditory hallucinations (unclear if possibly responding at times) and no visual hallucinations Cognition: recent memory grossly intact, remote memory grossly intact, attention grossly intact and language grossly intact Estimated Intelligence: consistent with education level Insight: + limited insight Judgement: + limited judgement Vital Signs (Past 24 Hours) Last Vital Signs Temp 36.8 C 10/05/22 06:34 Pulse 79 10/05/22 06:35 Resp 16 10/05/22 06:34 BP 145/94 H 10/05/22 06:35 Pulse Ox 99 10/02/22 21:17 O2 Del Method 10/02/22 21:17 Results & Data ([facility]) Current Inpatient Medications Current Inpatient Medications: Current Inpatient Medications Acetaminophen (Acetaminophen 325 Mg Tab) 650 mg PO Q4H PRN PRN Reason: Headache or Minor Fever Stop: 11/01/22 20:37 Al Hydrox/Mg Hydrox/Simethicone (Aluminum/Magnesium Susp 30 Ml Udc) 30 ml PO Q4H PRN PRN Reason: GI Upset Stop: 11/01/22 20:37 Bismuth Subsalicylate (Bismuth Subsalicylate Liqd 236 Ml) 15 ml PO PRN PRN PRN Reason: Loose Stool Stop: 11/01/22 20:37 Fluoxetine HCl (Fluoxetine Hcl 20 Mg Cap) 20 mg PO QAM [place] Stop: 11/02/22 13:44 Last Admin: 10/05/22 08:27 Dose: 20 mg Gabapentin (Gabapentin 100 Mg Cap) 100 mg PO TID PRN PRN Reason: Anxiety/Agitation Stop: 11/02/22 13:59 Lorazepam (Lorazepam 1 Mg Tab) 1 mg PO BID PRN PRN Reason: anxiety/agitation Stop: 11/03/22 08:38 Last Admin: 10/04/22 08:58 Dose: 1 mg Losartan Potassium (Losartan Potassium 25 Mg Tab) 25 mg PO DAILY [place] Stop: 11/02/22 13:14 Last Admin: 10/05/22 08:28 Dose: 25 mg Magnesium Hydroxide (Magnesium Hydroxide Susp 30 Ml Udc) 30 ml PO DAILY PRN PRN Reason: Constipation Stop: 11/01/22 20:37 Metronidazole (Metronidazole 0.75% Topical Gel 45 Gm Tube) 1 appln TOP BID [place] Stop: 10/13/22 08:59 Last Admin: 10/05/22 08:28 Dose: 1 appln Quetiapine Fumarate (Quetiapine Fumarate 100 Mg Tablet) 100 mg PO HS PRN PRN Reason: Insomnia Stop: 11/03/22 21:59 Quetiapine Fumarate (Quetiapine Fumarate 25 Mg Tablet) 50 mg PO HS [place]ON[place]IO Stop: 11/03/22 21:59 Last Admin: 10/04/22 20:21 Dose: 50 mg Sodium Chloride (Sodium Chloride 0.65% Na Soln 45 Ml ([place])) 1 - 2 sprays NA PRN PRN PRN Reason: Nasal Dryness/Congestion Stop: 11/01/22 20:37
[2022-10-05] MEDS: LORazepam 1 MG TAB PO PRN ×2 (09:37→15:53)
[2022-10-05] MEDS: QUEtiapine FUMARATE 25 MG TABLET PO SCH (20:11)
[2022-10-06] MEDS: FLUoxetine HCL 20 MG CAP PO SCH (07:52)
[2022-10-06] MEDS: LOSARTAN POTASSIUM 25 MG TAB PO SCH (07:52)
[2022-10-06] MEDS: metroNIDAZOLE 0.75% TOPICAL GEL 45 GM TUBE TOP SCH ×2 (07:53→20:30)
--- NOTE | 2022-10-06 08:25 | Psychiatric Progress Note ---
Date of Service October 06, 2022 Impression / Recommendations Impression Bear is a 62 year old with a history of MDD with psychotic features, anxiety and alcohol use presenting with severe anxiety, paranoia, and worsening depression with SI with plans. Diagnostically consistent with major depressive disorder with psychotic features and anxious distress as well as likely ELIJAH with panic attacks and recent brief relapse of alcohol use. She is deemed unstable and requires psychiatric hospitalization for diagnostic clarification, safety and stabilization, medication management and development of further coping skills. MNPR due to paranoia 10/06/22: mood gradually improving, no SI today and no overt paranoia or symptoms of psychosis thought still resistant to any further medication titration of Seroquel. Anxiety has improved significantly, unclear if due to Klonopin or from lessening of paranoia. Continue to encourage medication titration as she allows. Given severity of recent symptoms still requires hospitalization to ensure ongoing stabilization and safety. (1) Major depressive disorder, recurrent, severe with psychotic features: (2) Suicidal ideation: (3) Generalized anxiety disorder with panic attacks: Plan 10/06/2022: Continue current medications and treatment plan. 10/05/22: Continue fluoxetine 20mg qd. Continue Seroquel 50mg HS (she declines any higher dose). Ativan 1mg BID prn. 10/04/22: Stop risperidone. Start seroquel 150mg hs with additional 100mg hs prn if needed. Discontinue propranolol as she is not finding this helpful 10/03/2022: The patient was admitted to the [facility] ([facility]) on q15 min checks (behavioral with suicide precautions) for safety. The patient will participate in group, recreational, and milieu therapies and will be offered additional individual and family sessions as clinically appropriate. -Start fluoxetine for depression and anxiety -Start risperidone 0.5mg BID for psychosis/paranoia -Start gabapentin, propranolol and risperidone prn for breakthrough anxiety and paranoia -Stop buspar and mirtazapine per her request Inventory Assets Strengths: supportive relationships, willing to get treatment, outpatient provider Needs: safety and stabilization, medication adjustment, additional coping skills, increased outpatient services Suicide Risk Level Suicide Risk Level: Moderate (q15 min suicide checks) (depression and anxious distress with SI with plan prior to admission but mood now improving, denies SI and feels safe in the hospital, able to safety contract and agrees to let nursing/staff know should they develop plan, intent or feel unable to remain safe. ) Suicide Risk Level Comments: Risk Factors Assessment : Yes Do You Have Access To A Gun?: No Mental Health Diagnoses: Yes Substance Use Disorders: Yes Previous Attempt: Yes Family History of Suicide: No Previous Psychiatric Hospitalization: Yes Protective Factors Assessment : Yes Employed: No Stable Relationships: Yes Supportive Family: Yes Interval History Identifying Information BEAR SANDHU is a 62-year-old F who currently lives in [place] with her , has a history of depression with psychotic features, anxiety and alcohol use disorder, and was admitted on 10/02/22 20:38 on a 201 voluntary commitment for worsening mood symptoms and SI with plans. Chief Complaint "I'm ok". Review of Systems Sleep Information Total Hours of Sleep: 9.5 Sleep Comments: Meal Information Percent Meal Consumed - Breakfast: 75 Percent Meal Consumed - Lunch: 100 Percent Meal Consumed - Dinner: 100 Nutrition Comment: Subjective Subjective Patient was seen & assessed and interval progress reviewed with treatment team nursing and social work. Used two 0.5mg of ativan prn doses yesterday. More calm this morning, not restless. Low mood still but attending groups. BP elevated this morning but denies any symptoms related to this. Remains eager for discharge as she feels being in the hospital is difficult because she's used to doing things like cleaning or other tasks all day. Processed that she often feels more anxiety when she sits still or takes time to reflect and so hospitalization and all the focus on insight oriented work is difficult for her. Denies SI. Denies any AH. Is glad she can now concentrate better on things like watching TV. Denies medication side effects. Family meeting with . Still very resistant to any medication titration and unwilling to try anything except ativan for anxiety. Physical Exam Psychiatric Orientation: alert and oriented x 3 Apperance: appropriately dressed and appropriately groomed Eye Contact: good eye contact Motor Behavior: no abnormal motor movements Speech: normal rate/rhythm/volume of speech Affect: + flat affect Mood: + anxious mood and + irritable mood Thought Process: + perseveration Thought Content: reality based without delusions Suicidal Thoughts: denies suicidal thoughts Homicidal Thoughts: denies homicidal thoughts Hallucinations: no auditory hallucinations and no visual hallucinations Cognition: recent memory grossly intact, remote memory grossly intact, attention grossly intact and language grossly intact Estimated Intelligence: consistent with education level Insight: + limited insight Judgement: + limited judgement Vital Signs (Past 24 Hours) Last Vital Signs Temp 37 C 10/06/22 06:32 Pulse 81 10/06/22 06:32 Resp 16 10/06/22 06:32 BP 161/101 H 10/06/22 06:32 Pulse Ox 99 10/02/22 21:17 O2 Del Method 10/02/22 21:17 [facility] Current Inpatient Medications Current Inpatient Medications: Current Inpatient Medications Acetaminophen (Acetaminophen 325 Mg Tab) 650 mg PO Q4H PRN PRN Reason: Headache or Minor Fever Stop: 11/01/22 20:37 Al Hydrox/Mg Hydrox/Simethicone (Aluminum/Magnesium Susp 30 Ml Udc) 30 ml PO Q4H PRN PRN Reason: GI Upset Stop: 11/01/22 20:37 Bismuth Subsalicylate (Bismuth Subsalicylate Liqd 236 Ml) 15 ml PO PRN PRN PRN Reason: Loose Stool Stop: 11/01/22 20:37 Fluoxetine HCl (Fluoxetine Hcl 20 Mg Cap) 20 mg PO QAM [facility] Stop: 11/02/22 13:44 Last Admin: 10/06/22 07:52 Dose: 20 mg Gabapentin (Gabapentin 100 Mg Cap) 100 mg PO TID PRN PRN Reason: Anxiety/Agitation Stop: 11/02/22 13:59 Lorazepam (Lorazepam 1 Mg Tab) 1 mg PO BID PRN PRN Reason: anxiety/agitation Stop: 11/03/22 08:38 Last Admin: 10/05/22 15:53 Dose: 0.5 mg Losartan Potassium (Losartan Potassium 25 Mg Tab) 25 mg PO DAILY [facility] Stop: 11/02/22 13:14 Last Admin: 10/06/22 07:52 Dose: 25 mg Magnesium Hydroxide (Magnesium Hydroxide Susp 30 Ml Udc) 30 ml PO DAILY PRN PRN Reason: Constipation Stop: 11/01/22 20:37 Metronidazole (Metronidazole 0.75% Topical Gel 45 Gm Tube) 1 appln TOP BID [facility] Stop: 10/13/22 08:59 Last Admin: 10/06/22 07:53 Dose: 1 appln Quetiapine Fumarate (Quetiapine Fumarate 100 Mg Tablet) 100 mg PO HS PRN PRN Reason: Insomnia Stop: 11/03/22 21:59 Quetiapine Fumarate (Quetiapine Fumarate 25 Mg Tablet) 50 mg PO HS [facility] Stop: 11/03/22 21:59 Last Admin: 10/05/22 20:11 Dose: 50 mg Sodium Chloride (Sodium Chloride 0.65% Na Soln 45 Ml ([place])) 1 - 2 sprays NA PRN PRN PRN Reason: Nasal Dryness/Congestion Stop: 11/01/22 20:37 Mental Health & Subst Abuse Tx Psychiatrist Name of Psychiatrist: Ulises Robertson Psychiatrist's Time of Appointment with Psychiatrist: 2:20pm Psychiatric Appointment Comment: [address] [place] [address] Post Discharge Appointments Primary Care Physician Name Of Family Doctor/PCP: [facility] Time of Appointment with PCP: 11:20am,arrive by 11:05am Provider Appointment Comment: [place] [id number] Contact Information Discharge Discharge Address: [address] [place], [place] [address] [id number]
[2022-10-06] MEDS: LORazepam 0.5 MG TAB PO PRN ×2 (10:05→15:18)
[2022-10-06] MEDS ORDERED: BENZOCAINE 20% (ORAJEL) 11.9 GM TUBE MT PRN (13:40)
[2022-10-06] MEDS: QUEtiapine FUMARATE 25 MG TABLET PO SCH (20:30)
[2022-10-07] MEDS: FLUoxetine HCL 20 MG CAP PO SCH (08:09)
[2022-10-07] MEDS: LOSARTAN POTASSIUM 25 MG TAB PO SCH (08:09)
[2022-10-07] MEDS: metroNIDAZOLE 0.75% TOPICAL GEL 45 GM TUBE TOP SCH (08:10)
--- NOTE | 2022-10-07 10:10 | Discharge Summary ---
Date of Service October 07, 2022 History of Present Illness As per Dr. Ware on admission: Alize presents for psychiatric admission for worsening depression, anxiety and SI with plans of shooting herself or walking into traffic or disappearing along the highway. Has been having non-stop panic attacks but has been able to leave the house. She's also been feeling increasingly paranoid including fears about her food being contaminated and thinking her has said things like "I might try to kill her" when he's sleeping. She feels like she "can't trust" anything and notes "I just need a little bit to calm me down". Has a sense of "I need to crawl out of my skin". She relapsed on alcohol use this week having a few wine coolers which has caused her to feel increased shame. She feels stuck because the alcohol is the "only things that relaxes me" but her said he won't stay with her if she starts drinking again. She thinks the precipitant to the mood changes was winter season and getting out of her routine of going outside for a walk and doing her work. She is currently prescribed mirtazapine, buspirone, and Vistaril but has not found these helpful and has only been taking the buspirone. She finds the mirtazapine makes her feel restless. Hasn't yet started fluoxetine but her PCP just prescribed this. Psychiatric ROS notable for no current nor history of symptoms of romero, OCD nor eating disorder. States she has experienced auditory hallucinations but "I don't want to talk about that". Physical Exam Psychiatric See admission H&P and DOD assessment. Vital Signs (Past 24 Hours) Last Vital Signs Temp 37 C 10/07/22 06:33 Pulse 88 10/07/22 06:34 Resp 18 10/07/22 06:33 BP 169/107 H 10/07/22 06:34 Pulse Ox 99 10/02/22 21:17 O2 Del Method 10/02/22 21:17 Principal Diagnosis major depressive disorder Psychiatric Data See daily stay summary. In short, safety was maintained and the patient was generally cooperative with care. Medication changes included discontinuing Buspar and Remeron in favor of retrial of Prozac and Seroquel. She tolerated this well but remained focussed on Ativan. A family session was held and safety plan was completed prior to discharge. The patient is rather insistent that she be discharged today. She does not want further titration of Seroquel. She does not want therapy but understands why it is recommended. She remains aware of risks of combining ETOH and Ativan should she relapse. BP and P slightly elevated (asymptomatic) around discharge as focussed on going home, upset re: limited supply of Ativan given as unsure she can get rx with PCP. Reviewed that I cannot control another providers prescribing and it's typical for us to give short supplies on discharge to reinforce follow up. She remains ambivalent re: f/u with [facility] as prefers PCP manage meds. She is aware that she would be responsible for keeping or cancelling f/u appointments. Agrees not to drive/operate machinery with Ativan. Day of Discharge Assessment Today the patient voices readiness for discharge. They note improvement in mood and deny thoughts to harm self or others. Thoughts are more organized from admission. There is no evidence of psychosis as she states her paranoia re: "how my pills look, the color, etc." have resolved. They agree to take mediations as prescribed and keep follow-up appointments. They are stable for discharge to outpatient level of care. it does not appear that fasting labs were obtained this visit, she reports they are [facility] and declines draw prior to discharge. Transition of Care Transition Of Care Record: was reviewed with the patient Advance Directives Advance Directives Information Provided: No Advance Directives: No Mental Health Advance Directive: No Advance Directives on File: No Living Will: No Power of Material Handler Loader: No Advance Directives Reason:: Declines as Mental Health Visit. Suicide Risk Level Suicide Risk Level Comments: Suicide risk at discharge is deemed low as the patient is no longer requiring 24-hr monitoring, has a safety plan, and is free of suicidal ideation at discharge. Risk Factors Assessment : Yes Do You Have Access To A Gun?: No Mental Health Diagnoses: Yes Substance Use Disorders: Yes Previous Attempt: Yes Family History of Suicide: No Previous Psychiatric Hospitalization: Yes Protective Factors Assessment : Yes Employed: No Stable Relationships: Yes Supportive Family: Yes Tobacco Cessation at Discharge Tobacco Cessation Medication Prescribed at Discharge: Not Applicable/Non-Smoker Total Time Total Time Spent: Greater Than 30 Minutes Total Time Includes: Examination of the patient, Discharge Planning and Medication Reconciliation Discharge Data Lab Results 10/02/22 10/02/22 10/02/22 16:20 16:20 16:54 WBC 6.77 RBC 4.77 Hgb 14.3 Hct 41.1 MCV 86.2 MCH 30.0 MCHC 34.8 RDW Std Deviation 44.5 RDW Coeff of Fouzia 14.0 Plt Count 317 MPV 9.3 L Immature Gran % (Auto) 0.6 Neut % (Auto) 65.1 Lymph % (Auto) 25.8 Evangeline % (Auto) 7.7 Eos % (Auto) 0.1 Baso % (Auto) 0.7 Neut # (Auto) 4.40 Lymph # (Auto) 1.75 Evangeline # (Auto) 0.52 Eos # (Auto) 0.01 Baso # (Auto) 0.05 Immature Gran # (Auto) 0.04 H Sodium Potassium Chloride Carbon Dioxide Anion Gap BUN Creatinine Est Cr Clr Drug Dosing Est GFR ( Amer) Est GFR (Non-Af Amer) BUN/Creatinine Ratio Glucose Calcium Total Bilirubin AST ALT Alkaline Phosphatase Total Protein Albumin Globulin Albumin/Globulin Ratio TSH Urine Color Yellow Urine Appearance Clear Urine pH 7.0 Ur Specific [place] 1.003 Urine Protein Negative Urine Glucose (UA) Negative Urine Ketones Negative Urine Blood Negative Urine Nitrite Negative Urine Bilirubin Negative Urine Urobilinogen Negative Ur Leukocyte Esterase 1+ H Urine WBC (Auto) 10-30 H Urine RBC (Auto) 0-4 U Hyaline Cast (Auto) 1-5 U Epithel Cells (Auto) 20-30 H Urine Bacteria (Auto) 1+ H Salicylates Urine Opiates Screen Neg Ur Methadone, Qual Neg Acetaminophen Urine Barbiturates Neg Ur Phencyclidine (PCP) Neg U Amphetamin/Meth Scrn Neg MDMA (Ecstasy) Screen Neg U Benzodiazepines Scrn Neg Ur Cocaine Metabolite Neg U Marijuana (THC) Screen Neg Ethyl Alcohol mg/dL SARS-CoV-2, RNA, NAAT 10/02/22 10/02/22 10/02/22 16:54 16:54 16:54 WBC RBC Hgb Hct MCV MCH MCHC RDW Std Deviation RDW Coeff of Fouzia Plt Count MPV Immature Gran % (Auto) Neut % (Auto) Lymph % (Auto) Evangeline % (Auto) Eos % (Auto) Baso % (Auto) Neut # (Auto) Lymph # (Auto) Evangeline # (Auto) Eos # (Auto) Baso # (Auto) Immature Gran # (Auto) Sodium 139 Potassium 3.3 L Chloride 99 Carbon Dioxide 30 Anion Gap 10 BUN 5 L Creatinine 1.02 Est Cr Clr Drug Dosing 60.3 Est GFR ( Amer) 69.2 Est GFR (Non-Af Amer) 59.7 BUN/Creatinine Ratio 4.9 L Glucose 129 H Calcium 9.0 Total Bilirubin 0.3 AST 14 ALT 8 Alkaline Phosphatase 101 Total Protein 7.7 Albumin 4.3 Globulin 3.4 Albumin/Globulin Ratio 1.3 TSH 1.414 Urine Color Urine Appearance Urine pH Ur Specific [place] Urine Protein Urine Glucose (UA) Urine Ketones Urine Blood Urine Nitrite Urine Bilirubin Urine Urobilinogen Ur Leukocyte Esterase Urine WBC (Auto) Urine RBC (Auto) U Hyaline Cast (Auto) U Epithel Cells (Auto) Urine Bacteria (Auto) Salicylates < 3.0 L Urine Opiates Screen Ur Methadone, Qual Acetaminophen < 3 L Urine Barbiturates Ur Phencyclidine (PCP) U Amphetamin/Meth Scrn MDMA (Ecstasy) Screen U Benzodiazepines Scrn Ur Cocaine Metabolite U Marijuana (THC) Screen Ethyl Alcohol mg/dL SARS-CoV-2, RNA, NAAT 10/02/22 10/02/22 16:54 19:33 WBC RBC Hgb Hct MCV MCH MCHC RDW Std Deviation RDW Coeff of Fouzia Plt Count MPV Immature Gran % (Auto) Neut % (Auto) Lymph % (Auto) Evangeline % (Auto) Eos % (Auto) Baso % (Auto) Neut # (Auto) Lymph # (Auto) Evangeline # (Auto) Eos # (Auto) Baso # (Auto) Immature Gran # (Auto) Sodium Potassium Chloride Carbon Dioxide Anion Gap BUN Creatinine Est Cr Clr Drug Dosing Est GFR ( Amer) Est GFR (Non-Af Amer) BUN/Creatinine Ratio Glucose Calcium Total Bilirubin AST ALT Alkaline Phosphatase Total Protein Albumin Globulin Albumin/Globulin Ratio TSH Urine Color Urine Appearance Urine pH Ur Specific [place] Urine Protein Urine Glucose (UA) Urine Ketones Urine Blood Urine Nitrite Urine Bilirubin Urine Urobilinogen Ur Leukocyte Esterase Urine WBC (Auto) Urine RBC (Auto) U Hyaline Cast (Auto) U Epithel Cells (Auto) Urine Bacteria (Auto) Salicylates Urine Opiates Screen Ur Methadone, Qual Acetaminophen Urine Barbiturates Ur Phencyclidine (PCP) U Amphetamin/Meth Scrn MDMA (Ecstasy) Screen U Benzodiazepines Scrn Ur Cocaine Metabolite U Marijuana (THC) Screen Ethyl Alcohol mg/dL < 10.0 SARS-CoV-2, RNA, NAAT NEGATIVE Hospital Course (1) Major depressive disorder, recurrent, severe with psychotic features: (2) Suicidal ideation: (3) Generalized anxiety disorder with panic attacks: Plan 10/06/2022: Continue current medications and treatment plan. 10/05/22: Continue fluoxetine 20mg qd. Continue Seroquel 50mg HS (she declines any higher dose). Ativan 1mg BID prn. 10/04/22: Stop risperidone. Start seroquel 150mg hs with additional 100mg hs prn if needed. Discontinue propranolol as she is not finding this helpful 10/03/2022: The patient was admitted to the [facility] ([facility] health [facility]) on q15 min checks (behavioral with suicide precautions) for safety. The patient will participate in group, recreational, and milieu therapies and will be offered additional individual and family sessions as clinically appropriate. -Start fluoxetine for depression and anxiety -Start risperidone 0.5mg BID for psychosis/paranoia -Start gabapentin, propranolol and risperidone prn for breakthrough anxiety and paranoia -Stop buspar and mirtazapine per her request Mental Health & Subst Abuse Tx Psychiatrist Name of Psychiatrist: Ulises Robertson Psychiatrist's Time of Appointment with Psychiatrist: 2:20pm Psychiatric Appointment Comment: [address] [place] [address] Therapist [facility]'s Therapy Appointment Comment: Call to schedule intake if interested in therapy in the future. Post Discharge Appointments Primary Care Physician Name Of Family Doctor/PCP: Violet Montesinos [facility] Time of Appointment with PCP: 11:20am,arrive by 11:05am Provider Appointment Comment: [place] [id number] Smoking Cessation Counseling Tobacco Cessation Medication Prescribed at Discharge: Not Applicable/Non-Smoker Contact Information Discharge Discharge [address] [address] [place], [place] [address] [address] Discharge Plan Discharge Items Patient Disposition: Home - Self-Care Reason For Visit: unspecified mood disorder Discharge Diagnosis: major depressive disorder Activity: Resume your previous activity Non-emergency contact: Primary Care Provider and Psychiatrist Call non-emergency contact if: you have any medication questions and your symptoms worsen Follow-up/Referrals: Ai Pina PA-C [Primary Care Provider] - Diet: Regular Addtl Attending Provider Instructions: SPECIAL CARE INSTRUCTIONS: 1. Follow through with your scheduled aftercare appointments. If unable to keep an appointment, please call to reschedule. 2. Take your medication only as prescribed. Medication should not be changed or stopped without the approval of your doctor. In the event of worsening symptoms or concerns about side effects, contact your doctor immediately. 3. Utilize new healthy coping skills, anger management skills, and stress management skills learned during your hospitalization. Journal feelings and process them with a support person. Identify stressors or situations that may result in relapse, deterioration or inappropriate behaviors and develop a plan to deal with those issues. 4. If your coping skills are ineffective and you are in crisis, contact your outpatient providers for direction. If unable to reach your providers, please call the [facility] CRISIS LINE AT , go to the [facility] walk-in center at [address], [address], [place], or go to the closest Emergency Room. 5. Avoid alcohol and un-prescribed drugs. 6. You have been provided with the Mental Health Advance Directives Pamphlet for your review. 7. Your condition is stable for discharge to outpatient level of care, but recovery is an ongoing process. Ifthoughts to harm yourself or others return, follow the safety plan developed during your stay. Planning for a safe return home includes securing weapons. Our treatment team recommends weaponsbe removed from the home until your outpatient provider reassesses your progress. In rare cases where the items themselvescannot be removed, guns and ammunitionshould be secured separatelyand keys stored by a reliable personoutside of the home. If you were admitted on an involuntary commitment, the police or other legal authorities may be involved in this process. AFTERCARE APPOINTMENTS: * Please call your insurance company prior to your scheduled appointment to confirm your aftercare providers are covered. Take your insurance information to your appointments. WHO TO CALL AND WHEN: Medical Emergencies: For questions or emergencies related to your hospital stay, please contact the Inpatient Behavioral Health Unit at [phone]. A engraver is on-call 12/04 for the Behavioral Health Unit for emergencies At any time you feel your situation is an emergency, you may also call 911 immediately. Pending Studies at Discharge: No Stand-Alone Forms: My [facility] Medications and DC Order Prescriptions: New quetiapine 25 mg Tablet 50 mg PO HS Qty: 60 0RF HurriCaine 20 % Gel 1 applic MT QID PRN (Reason: mouth irritation) Qty: 6 0RF Continued losartan 25 mg Tablet 25 mg PO DAILY metronidazole 0.75 % Gel 1 applic TOPICAL BID fluoxetine [Prozac] 20 mg Capsule 20 mg PO DAILY Qty: 30 0RF lorazepam [Ativan] 0.5 mg Tablet 0.5 mg PO BID PRN (Reason: Anxiety) Qty: 10 0RF Discontinued buspirone [BuSpar] 15 mg Tablet 15 mg PO TID mirtazapine [Remeron] 15 mg Tablet 15 mg PO HS hydroxyzine HCl 10 mg Tablet 10 mg PO TID PRN (Reason: Anxiety) Discharge Orders: Discharge Order (Routine); Ordered 10/07/22 Ordered By: Vikki John Admission Data Admit Date/Time: 10/02/22 20:38 Attending Provider: Vikki John Admit Provider: Vanita Ware Primary Care Provider: Ai Pina Other Interventions: Discharge Summary Assessment (RN) Last Done: 10/07/22 10:27 PSY Interdisciplinary Discharge Planning Last Done: 10/07/22 10:43 Coding Level of Care Code 16164 D/C day mgmt > 30 min Diagnoses Major depressive disorder, recurrent, severe with psychotic features F33.3 Suicidal ideation R45.851 Generalized anxiety disorder with panic attacks F41.1; F41.0
[2022-10-07] MEDS: LORazepam 0.5 MG TAB PO PRN (10:23)
== END 2022-10-07 11:32 | disposition home or self-care (01) | DRG 885 ==
LOC: ED 15:51 → SUATTDRO 20:38 → 3S 20:38